=== PATIENT | male | born 1940 | race Caucasian/White ===

== ENCOUNTER 2019-02-07 14:30 | Emergency (ER) | payer OTHER, SELFPAY ==
[2019-02-07 14:34] VITALS: BP 186/87; PULSE 69; RESP 16; TEMP 36.8; O2SAT 100
--- NOTE | 2019-02-07 14:35 | DI.RAD.S_ITS ---
PROCEDURE: XR PELVIS 1-2V INDICATIONS: Left hip pain after fall TECHNIQUE: Single view(s) of the pelvis acquired. COMPARISON: None. FINDINGS: Bones: No fractures or dislocations. No suspicious bony lesions. Bilateral hip joint osteoarthritic changes are seen. Degenerative disc disease in lower lumbar spine is also noted. Soft tissues: Visualized bowel gas pattern is normal. No suspicious soft tissue calcifications. IMPRESSION: No gross acute pelvic fracture or dislocation. Bilateral hip joint osteoarthritis. Dictated by: Esau Izquierdo M.D. on 02/07/2019 at 15:01 Approved by: Esau Izquierdo M.D. on 02/07/2019 at 15:01
--- NOTE | 2019-02-07 14:40 | ED.FALL ---
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 Upon trying to get out of the dumpster he fell out. Potentially hitting his head. Unsure if he lost any consciousness. Did have pain with his left pelvis when he was stood up by the paramedics. Arrive not on a backboard not in a cervical collar and alert oriented x3. Related Data Home Medications Medication Instructions Recorded Confirmed aspirin 81 mg PO QPM #0 10/09/17 02/07/19 nitroglycerin [Nitrostat] 0.4 mg SUBLINGUAL PRN PRN #0 10/09/17 02/07/19 ResMed AirSense 10 CPAP #1 ea 01/27/19 02/07/19 [NALTREXONE] 4.5 mg PO BEDTIME 02/07/19 02/07/19 atorvastatin [Lipitor] 40 mg PO BEDTIME 02/07/19 02/07/19 chlorhexidine gluconate [Paroex 15 ml BUCCAL BID 02/07/19 02/07/19 Oral Rinse] clopidogrel 75 mg PO QPM 02/07/19 02/07/19 fluorouracil 1 applic TOPICAL BID 02/07/19 02/07/19 fluticasone propionate 1 spray INTRANASAL QDAY PRN 02/07/19 02/07/19 lisinopril 5 mg PO QPM 02/07/19 02/07/19 metoprolol succinate [Toprol XL] 25 mg PO QPM 02/07/19 02/07/19 Previous Rx's Medication Instructions Recorded acetaminophen-codeine 1 tab PO Q8H PRN #14 tab 02/07/19 [Tylenol-Codeine #3] Allergies Allergy/AdvReac Type Severity Reaction Status Date / Time No Known Allergies Allergy Uncoded 08/24/18 11:48 Review of Systems Constitutional Denies frequent falls and Denies headache(s) Eyes Denies diplopia ENT Ears, Nose, Mouth, and Throat: Denies vertigo, Denies dizziness, Denies headache(s) and Denies sore throat Cardiovascular Denies chest pain and Denies dyspnea Respiratory Denies dyspnea Gastrointestinal Gastrointestinal: Denies abdominal pain Musculoskeletal Comments: Left hip pain Integumentary/Breasts Denies rash Neurologic Denies vertigo, Denies dizziness, Denies frequent falls and Denies headache(s) Hematologic/Lymphatic Comments: On Plavix Exam Initial Vital Signs Initial Vital Signs: Vital Signs Temperature 98.3 F 02/07/19 14:34 Pulse Rate 69 02/07/19 14:34 Respiratory Rate 16 02/07/19 14:34 Blood Pressure 186/87 H 02/07/19 14:34 Pulse Oximetry 100 02/07/19 14:34 Const General: cooperative, well developed, well groomed and No acute distress Orientation: alert, awake and oriented x3 [facility] Head: normal to inspection, normocephalic, atraumatic and No abrasion Nose: external nose normal Mouth: oral mucosae normal Resp Effort & Inspection: normal respiratory effort Auscultation: clear to auscultation bilaterally Cardio Rate: regular rate Rhythm: regular rhythm GI Inspection: non-distended Palpation: soft Back/Spine/Pelvis Cervical Spine: No collar present, pain with cervical ROM, No cervical spinal tenderness and No step off deformity Thoracic/Lumbar Spine: thoracic and lumbar spine normal to inspection, No thoracic spinal tenderness and No lumbar spinal tenderness Skin Lesions: no lesions Rashes: no rashes Neuro General: alert, awake and oriented x3 Cognition: normal cognition Speech: speech normal Extrem Other: Tender to palpation left hemipelvis however is able to flex and extend the left hip. No left in the year left ankle problems. Right lower extremity unremarkable. Upper extremities bilateral unremarkable. Psych Appearance: grossly normal and well kempt Attitude: cooperative [facility] Medical History Ankle pain (Chronic) Factor V Leiden (Chronic) Foot pain (Chronic) Glaucoma (Chronic) Hearing deficit (Chronic) Hearing loss (Chronic) Hemorrhoid (Chronic) Hyperlipidemia (Chronic) Hypertension (Chronic ~1950) Peripheral neuropathy (Chronic ~2007) Seasonal allergies (Chronic) Shoulder pain (Chronic) Sleep apnea (Chronic) Vision disorder (Chronic) Chicken pox (Resolved) Fractures (Resolved) Herpes (Resolved) Measles (Resolved) Mumps (Resolved) Social History marital status: Smoking Status: Never smoker alcohol intake: current (1-2 A DAY ) substance use type: does not use Course Orders Ordered: ED Orders 02/07/19 14:35 XR pelvis 1-2V Stat 02/07/19 14:41 CT cervical spine wo con Stat CT head/brain wo con Stat Discontinued Medications Acetaminophen/Codeine Phosphate (Tylenol #3) 1 tab PO NOW ONE Stop: 02/07/19 15:24 Last Admin: 02/07/19 15:49 Dose: 1 tab Vital Signs - 8 hr 02/07/19 14:34 Temperature 98.3 F Pulse Rate 69 Respiratory Rate 16 Blood Pressure 186/87 H Pulse Oximetry 100 MDM - Fall Imaging Data Pelvis x-ray: Radiologist's impression: [address] [address] XRay Report Signed Patient: Guero Swanson JMR#: [id number] : 1940Acct:[id number] Age/Sex: 78 / MDate of Service: 02/07/19 Loc: ED Accession Number: [id number] Procedure: XR pelvis 1-2V Ordering Provider: Lazaro Starkey D.O. PROCEDURE: XR PELVIS 1-2V INDICATIONS: Left hip pain after fall TECHNIQUE: Single view(s) of the pelvis acquired. COMPARISON: None. FINDINGS: Bones: No fractures or dislocations. No suspicious bony lesions. Bilateral hip joint osteoarthritic changes are seen. Degenerative disc disease in lower lumbar spine is also noted. Soft tissues: Visualized bowel gas pattern is normal. No suspicious soft tissue calcifications. IMPRESSION: No gross acute pelvic fracture or dislocation. Bilateral hip joint osteoarthritis. Dictated by: Esau Izquierdo M.D. on 02/07/2019 at 15:01 Approved by: Esau Izquierdo M.D. on 02/07/2019 at 15:[address] C[address]: Radiologist's impression: [address] [address] [address] Scan Report Signed Patient: Guero Swanson NASIMAR#: [id number] : 1940Acct:[id number] Age/Sex: 78 / MDate of Service: 02/07/19 Loc: ED Accession Number: [id number] Procedure: CT cervical spine wo con Ordering Provider: Lazaro Starkey D.O. PROCEDURE: CT CERVICAL SPINE WO CON INDICATIONS: Fall with midline neck pain TECHNIQUE: Noncontrast 3 mm thick sections acquired from the skull base to the T4 level. Sagittal and coronal reformats were then constructed. For radiation dose reduction, the following was used: automated exposure control, adjustment of mA and/or kV according to patient size. COMPARISON: None. FINDINGS: Image quality: Excellent. Bones: There is straightening of normal cervical lordosis. No acute fracture or dislocation is seen. Vertebral body heights are well-preserved. Degenerative endplate changes and bilateral facet hypertrophic changes are noted throughout cervical spine. There is suggestion of obvious disc bulge at C4-5, C5-6 and C6-7 levels causing mild to moderate central canal stenosis and bilateral neuroforaminal narrowing more prominent at C5-6 level. Visualized superior ribs are intact. Soft tissues: Prevertebral soft tissues are normal in thickness. No paravertebral hematomas. No apical pneumothoraces. IMPRESSION: 1. No acute cervical spine fracture or spondylolisthesis. 2. Degenerative disc disease throughout cervical spine as above. Dictated by: Esau Izquierdo M.D. on 02/07/2019 at 15:03 Approved by: Esau Izquierdo M.D. on 02/07/2019 at 15:[address]: Radiologist's impression: [place] [address] CT Scan Report Signed Patient: Guero Swanson JMR#: [id number] : 1940Acct:[id number] Age/Sex: 78 / MDate of Service: 02/07/19 Loc: ED Accession Number: [id number] Procedure: CT head/brain wo con Ordering Provider: Lazaro Starkey D.O. PROCEDURE: CT HEAD/BRAIN WO CON INDICATIONS: Fell hit head on Plavix TECHNIQUE: Noncontrast 4.5 mm thick angled axial sections acquired from the foramen magnum to the vertex, with coronal and sagittal reformats. For radiation dose reduction, the following was used: automated exposure control, adjustment of mA and/or kV according to patient size. COMPARISON: [facility], CT, HEAD WITHOUT CONTRAST, 03/18/2016, 15:00. FINDINGS: Image quality: Excellent. CSF spaces: Basal cisterns are patent. No extra-axial fluid collections. The ventricles are symmetric in size and shape. Brain: No intracranial bleeds or masses. There is cerebral volume loss for age, with resultant ventricular and sulcal prominence. There are periventricular and deep white matter chronic small vessel ischemic changes. There is intracranial internal carotid artery atherosclerosis. Skull and face: Calvarium and visualized facial bones appear intact, without suspicious lesions. Sinuses: Visualized sinuses and mastoids are clear. IMPRESSION: No CT evidence of acute intracranial pathology. Age-appropriate atrophy and mild periventricular white matter microangiopathic changes. Dictated by: Esau Izquierdo M.D. on 02/07/2019 at 15:02 Approved by: Esau Izquierdo M.D. on 02/07/2019 at 15:03 [facility] Narrative Medical decision making narrative: Head CT and cervical spine CT unremarkable. Patient was able to stand however was having some difficulty walking. We were able to get him a walker. He did develop a large hematoma on his left lateral thigh. I suspect this is bruising. Does not appear to be a ruptured or torsed muscle or a traumatic bursitis. We did discuss what is expected to happen with regard to this and pain and swelling and redness and bruising afterwards. He did feel better after the Tylenol 3. Will send him home with this. I did inform him that this could potentially cause him to be drowsy so he needed to take care to avoid falling. He was given return precautions. He expressed understanding and agreement plan. Discharge Plan Departure Patient Disposition: Home Clinical Impression: Contusion of hip Qualifiers: Encounter type: initial encounter Laterality: left Qualified Code(s): S70.02XA - Contusion of left hip, initial encounter Fall Qualifiers: Encounter type: initial encounter Qualified Code(s): W19.XXXA - Unspecified fall, initial encounter Instructions: DI for Contusion Activity Restrictions/Additional Instructions: Use the walker as needed. Continue all of your medication. Expect to be more sore tomorrow. If you develop new pain in a different location return to the emergency department for evaluation. Contact your primary care doctor for follow-up. Prescriptions: New acetaminophen-codeine [Tylenol-Codeine #3] 300-30 mg tablet 1 tab PO Q8H PRN (Reason: pain) Qty: 14 RF: 0 No Action aspirin 81 MG tablet,delayed release (DR/EC) 81 mg PO QPM Qty: 0 RF: 0 nitroglycerin [Nitrostat] 0.4 MG tablet, sublingual 0.4 mg Sublingual PRN PRN (Reason: Chest Pain) Qty: 0 RF: 0 clopidogrel 75 mg Tablet 75 mg PO QPM RF: 0 atorvastatin [Lipitor] 40 mg tablet 40 mg PO BEDTIME RF: 0 fluorouracil 5 % Cream 1 applic TOPICAL BID RF: 0 chlorhexidine gluconate [Paroex Oral Rinse] 0.12 % Mouthwash 15 ml BUCCAL BID RF: 0 lisinopril 5 mg tablet 5 mg PO QPM RF: 0 metoprolol succinate [Toprol XL] 25 mg tablet extended release 24 hr 25 mg PO QPM RF: 0 fluticasone propionate 16 GM spray,suspension 1 spray Intranasal QDAY PRN (Reason: Allergy Symptoms) RF: 0 [NALTREXONE] 4.5 mg PO BEDTIME RF: 0 ResMed AirSense 10 CPAP Qty: 1 RF: 0 Referrals: Socrates Tee MD [Primary Care Provider] -
--- NOTE | 2019-02-07 14:55 | PC.NURSE ---
c-spine precautions maintained
--- NOTE | 2019-02-07 14:56 | PC.NURSE ---
c-spine precautions maintained
[2019-02-07] MEDS: CODEINE/ACETAMINOPHEN 30/300 TABLET 1 TAB PO (15:49)
[2019-02-07 16:00] VITALS: BP 178/77; PULSE 77; RESP 16; O2SAT 99
--- NOTE | 2019-02-07 16:18 | PC.NURSE ---
Patient has large area od soft tissue swelling to the back of right leg above knee/hamstring area. Also has large area od swelling to outer portion of left hip that is about the size of a softball. MD Starkey aware and assessed both. No discoloration noted at this time. Both areas are tender to the touch.
--- NOTE | 2019-02-07 16:20 | PC.NURSE ---
Patient up in hallway with walker with minimal pain.
== END 2019-02-07 16:31 | disposition home or self-care (01) ==
PROVIDERS: Emergency Provider Emergency Medicine; PCP Family Medicine
DX: S70.02XA Contusion of left hip, initial encounter (principal); M54.2 Cervicalgia; W19.XXXA Unspecified fall, initial encounter; Z79.01 Long term (current) use of anticoagulants
CPT/HCPCS: 70450; 72125; 72170; 99283; 99284

== ENCOUNTER → 2019-02-21 09:38 | Outpatient (CLI) | payer OTHER, SELFPAY ==
--- NOTE | 2019-02-21 09:44 | DI.CT.S_ITS ---
PROCEDURE: CT PEL WO CON INDICATIONS: left hip pain with fall r/o fracure of left hip TECHNIQUE: Noncontrast 3 mm axial sections acquired through the bony pelvis, with coronal and sagittal reformatting. COMPARISON: [facility], CR, XR PELVIS 1-2V, 02/07/2019, 14:40. FINDINGS: Image quality: Excellent. Bones: There is a minimally displaced left acetabular fracture with oblique orientation involving the acetabular roof and medial acetabular wall. This extends to the junction with the left superior pubic ramus. The bony pelvis otherwise appears intact. The visualized proximal femora also appear intact. The visualized lower lumbar spine demonstrates moderate degenerative disc disease at L5-S1 as well as moderate facet arthropathy in the lower lumbar spine. Soft tissues: No hematoma collections identified. No definite joint effusions. The visualized pelvic structures demonstrates mild aneurysmal dilatation of the visualized abdominal aorta measuring up to 3.1 cm. No intraperitoneal free fluid. Visualized bowel loops appear normal in caliber. IMPRESSION: 1. Minimally displaced left acetabular fracture. 2. 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 Dictated by: Stephen Page M.D. on 02/21/2019 at 10:51 Approved by: Stepehn Page M.D. on 02/21/2019 at 11:00
== END ==
PROVIDERS: PCP Family Medicine; Visit Provider Family Medicine
DX: S32.492A Other specified fracture of left acetabulum, initial encounter for closed fracture (principal); M25.552 Pain in left hip; I71.4 Abdominal aortic aneurysm, without rupture; M47.817 Spondylosis without myelopathy or radiculopathy, lumbosacral region; M51.37 Other intervertebral disc degeneration, lumbosacral region; W19.XXXA Unspecified fall, initial encounter
CPT/HCPCS: 72192

== ENCOUNTER → 2019-03-01 10:22 | Outpatient (CLI) | payer OTHER, SELFPAY ==
--- NOTE | 2019-03-01 10:23 | DI.US.S_ITS ---
PROCEDURE: US PERIPH VENOUS LOW EXTREM BI INDICATIONS: pain and swelling bilateral lower extremities TECHNIQUE: Real-time imaging, as well as color and pulse Doppler interrogation, were performed of the deep veins of both legs from the inguinal ligament to the popliteal fossa. COMPARISON: None. FINDINGS: Right: The common femoral, femoral and popliteal veins are normally compressible, and free of intraluminal thrombus. Color and pulse Doppler demonstrate normal phasic intravascular flow. There is normal augmentation response to distal compression maneuver. There is a popliteal (Jenkins's) cyst a right-side measuring 2.9 x 0.9 x 1.6 cm. Left: The common femoral, femoral and popliteal veins are normally compressible, and free of intraluminal thrombus. Color and pulse Doppler demonstrate normal phasic intravascular flow. There is normal augmentation response to distal compression maneuver. IMPRESSION: 1. No DVT in the lower extremities. 2. Right Jenkins's cyst. Dictated by: Ray Saunders M.D. on 03/01/2019 at 12:39 Approved by: Ray Saunders M.D. on 03/01/2019 at 12:40
== END ==
PROVIDERS: PCP Family Medicine; Visit Provider Family Medicine
DX: M79.604 Pain in right leg (principal); M79.605 Pain in left leg; M79.89 Other specified soft tissue disorders; M71.21 Synovial cyst of popliteal space [Baker], right knee
CPT/HCPCS: 93970

== ENCOUNTER → 2019-04-26 11:26 | Outpatient (CLI) | payer OTHER, SELFPAY ==
[2019-04-26 12:24] LABS: Add Manual Diff / Slide Review NO; Basophils Absolute Auto 100 /uL (0-100); Basophils Percent Auto 1.1 % (0-2); Eosinophils Absolute Auto 400 /uL (0-450); Eosinophils Percent Auto 8.9 % (2-4); Hematocrit 39.8 % (41-53); Hemoglobin 13.8 g/dL (13.5-17.5); Lymphocytes Absolute Auto 1200 /uL (1100-4500); Lymphocytes Percent Auto 26.2 % (25-40); Mean Corpuscular HGB Conc 34.6 % (30-36); Mean Corpuscular Hemoglobin 32.9 PG (26-34); Mean Corpuscular Volume 95.3 fL (80-100); Monocytes Absolute Auto 500 /uL (0-900); Monocytes Percent Auto 10.3 % (3-14); Neutrophils Absolute Auto 2500 /uL (1500-7000); Neutrophils Percent Auto 53.5 % (50-75); Platelet Count 201 X10^3/uL (150-400); Red Blood Cell Count 4.18 X10^6/uL (4.5-5.9); Red Cell Distribution Width 12.6 % (11.6-14.8); White Blood Cell Count 4.7 X10^3/uL (4.5-11.0)
[2019-04-26 12:48] LABS: Alanine Aminotransferase 26 IU/L (21-72); Albumin 4.6 g/dL (3.5-5.0); Albumin Globulin Ratio 1.6 (1.0-2.8); Alkaline Phosphatase 91 U/L (38-126); Aspartate Aminotransferase 27 IU/L (17-59); BUN Creatinine Ratio 16.4 (6-22); Bilirubin Total 1.2 mg/dL (0.2-1.3); Blood Urea Nitrogen 18 mg/dL (9-20); Calcium 9.9 mg/dL (8.4-10.2); Carbon Dioxide 28 mmol/L (22-32); Chloride 107 mmol/L (98-107); Cholesterol 108 mg/dL (140-199); Estimated Glomerular Filt Rate > 60.0 mL/min (>60); Globulin 2.9 g/dL (1.7-4.1); Glucose 109 mg/dL (80-110); HDL Cholesterol 26 mg/dL (40-60); HEMOLYSIS < 15 (0-50); LDL Cholesterol Calculated 56 mg/dL (<100); Potassium 4.4 mmol/L (3.4-5.1); Sodium 143 mmol/L (137-145); Total Protein 7.5 g/dL (6.3-8.2); Triglycerides 132 mg/dL (35-150)
[2019-04-26 13:13] LABS: TSH w/ Reflex to FT4 1.25 uIU/mL (0.47-4.68)
[2019-04-26 13:30] LABS: Vitamin B12 419 pg/mL (239-931)
== END ==
PROVIDERS: PCP Family Medicine; Visit Provider Family Medicine
DX: E78.5 Hyperlipidemia, unspecified (principal); I10 Essential (primary) hypertension; I25.10 Atherosclerotic heart disease of native coronary artery without angina pectoris
CPT/HCPCS: 36415; 80053; 80061; 82607; 84443; 85025

== ENCOUNTER 2020-02-27 17:39 | Observation (INO) | payer OTHER, SELFPAY ==
[2020-02-27] VITALS (13 sets, daily range): BP systolic 117–205; BP diastolic 57–95; PULSE 63–80; RESP 16–37; TEMP 36.8–37.1; O2SAT 97–99; BMI 25.7
--- NOTE | 2020-02-27 17:47 | DI.CT.S_ITS ---
PROCEDURE: CT HEAD/BRAIN WO CON INDICATIONS: trauma, on Plavix TECHNIQUE: Noncontrast 4.5 mm thick angled axial sections acquired from the foramen magnum to the vertex, with coronal and sagittal reformats. For radiation dose reduction, the following was used: automated exposure control, adjustment of mA and/or kV according to patient size. COMPARISON: [facility], MR, STROKE PROTOCOL, 04/08/2016, 13:48. [facility], CT, CT HEAD/BRAIN WO CON, 02/07/2019, 14:44. [facility], CT, HEAD WITHOUT CONTRAST, 03/18/2016, 15:00. FINDINGS: Image quality: Excellent. CSF spaces: Basal cisterns are patent. No extra-axial fluid collections. The ventricles are symmetric in size and shape. Brain: No intracranial bleeds or masses. There is cerebral volume loss for age, with resultant ventricular and sulcal prominence. There are periventricular and deep white matter chronic small vessel ischemic changes. There is intracranial internal carotid artery atherosclerosis. Skull and face: Calvarium and visualized facial bones appear intact, without suspicious lesions. Sinuses: Visualized sinuses and mastoids are clear. IMPRESSION: No acute intracranial hemorrhage is seen. No acute intracranial process is seen. Note is made of age-appropriate brain parenchymal volume loss and chronic small vessel ischemic changes. Dictated by: Eric Willams M.D. on 02/27/2020 at 17:00 Approved by: Eric Willams M.D. on 02/27/2020 at 17:01
--- NOTE | 2020-02-27 17:47 | DI.CT.S_ITS ---
PROCEDURE: CT CERVICAL SPINE WO CON INDICATIONS: trauma, bilateral hand paresthesia TECHNIQUE: Noncontrast 3 mm thick sections acquired from the skull base to the T4 level. Sagittal and coronal reformats were then constructed. For radiation dose reduction, the following was used: automated exposure control, adjustment of mA and/or kV according to patient size. COMPARISON: None. FINDINGS: Image quality: Excellent. Bones: No fractures or dislocations. Visualized superior ribs are intact. Prominent cervical spine degenerative changes are seen, which are most prominent inferiorly, with moderate disc space narrowing at C4-C5 and moderate to severe disc space narrowing at C5-C6 and C6-C7. Bridging anterior osteophytes are seen, which extends from at least C2-T3. Partially projected endplate osteophytes are seen which are most prominent at C4-C5, C5-C6, and C6-C7. Soft tissues: Prevertebral soft tissues are normal in thickness. No paravertebral hematomas. No apical pneumothoraces. Left neck clips are seen, as on series 3 image 49. Atherosclerotic calcification is noted. There is a left distal common carotid artery and proximal internal carotid artery stent seen. IMPRESSION: No acute fractures are seen. Prominent cervical spine degenerative changes are seen, which are worst inferiorly. Left carotid artery stenting. Left neck clips are seen. Dictated by: Eric Willams M.D. on 02/27/2020 at 17:03 Approved by: Eric Willams M.D. on 02/27/2020 at 17:06
--- NOTE | 2020-02-27 17:48 | ED_ITS ---
HPI - General Adult <Anna Fontenot MD - Last Filed: 02/28/20 07:45> General Chief complaint: Trauma Stated complaint: Fell hit head/ Neck px Time Seen by Provider: 02/27/20 17:45 History of Present Illness HPI narrative: 79-year-old gentleman with cardiac disease, hyperlipidemia, hypertension currently on Plavix who was out the [place] today cutting wood. He stumbled and fell backwards with a chainsaw in his hand. The chainsaw automatically stopped and he hit his head. No significant lacerations no loss of consciousness but some midline tenderness at C4-5 6 with bilateral hand paresthesias. Still able to move hands and legs. No lower extremity neurologic complaints. He is not complaining of shortness of breath, chest pain abdominal pain or pelvic pain. He states he was in his usual good health prior to stumbling backwards and suffering mechanical fall. Related Data Home Medications Medication Instructions Recorded Confirmed aspirin 81 mg PO QPM #0 10/09/17 02/28/20 nitroglycerin [Nitrostat] 0.4 mg SUBLINGUAL PRN PRN #0 10/09/17 02/28/20 ResMed AirSense 10 CPAP #1 ea 01/27/19 09/07/19 fluticasone propionate 1 spray INTRANASAL QDAY PRN 02/07/19 09/07/19 metoprolol succinate [Toprol XL] 25 mg PO QPM 02/07/19 02/28/20 melatonin 10 mg capsule 10 mg PO BEDTIME PRN 02/15/19 02/28/20 Previous Rx's Medication Instructions Recorded DISABLED [place] #1 each 02/15/19 clopidogrel 75 mg tablet 75 mg PO QPM #90 tab 10/20/19 atorvastatin 40 mg tablet 40 mg PO BEDTIME #90 tab 12/05/19 Cmp Naltrexone 4.5 mg PO DAILY #90 caplet 01/12/20 lisinopril 5 mg tablet 5 mg PO QPM #90 tab 01/26/20 Allergies Allergy/AdvReac Type Severity Reaction Status Date / Time No Known Allergies Allergy Uncoded 09/21/19 12:00 Review of Systems <Anna Fontenot MD - Last Filed: 02/28/20 07:45> Review of Systems Narrative: Pertinent positive and negative findings as per HPI Remainder of review of systems is otherwise unremarkable for Constitutional: Fevers, chills, weakness ENT: No sore throat, neck pain, ear pain CV: Chest pain, palpitations, dyspnea on exertion Respiratory: Cough, wheeze, dyspnea GI: Nausea, vomiting, diarrhea, change in bowel habits, black or bloody stools : Dysuria, hematuria, flank pain MS: Muscle weakness, numbness, joint swelling or warmth Skin: Rashes, nonhealing lesions Neuro: Syncope, dizziness, tingling Psych: Depression, anxiety, suicidal ideation Endocrine: Fatigue, heat or cold intolerance, very dry skin Heme: Easy bruising or bleeding Allergy: Seasonal rhinorrhea, itchy eyes Patient History <Anna Fontenot MD - Last Filed: 02/28/20 07:45> Medical History Allergies (Acute) Ankle pain (Chronic) Chicken pox (Resolved) Factor V Leiden (Chronic) Foot pain (Chronic) Fractures (Resolved) Glaucoma (Chronic) Hearing deficit (Chronic) Hearing loss (Chronic) Hemorrhoid (Chronic) Herpes (Resolved) Hyperlipidemia (Chronic) Hypertension (Chronic ~1949) Measles (Resolved) Mumps (Resolved) Peripheral neuropathy (Chronic ~2007) Seasonal allergies (Chronic) Shoulder pain (Chronic) Sleep apnea (Chronic) Vision disorder (Chronic) Surgical History Anesthesia (Resolved) History of eye surgery (Resolved ~2007) History of tonsillectomy (~1962) Status post appendectomy (~1994) Status post knee surgery (~1967) Family History Father Factor V Leiden deficiency Cancer Grandfather Hypertension Stroke Grandmother Heart attack Diabetes mellitus Mother Diabetes mellitus Hypertension High cholesterol Grandmother Diabetes mellitus Grandfather No problems noted. Social History marital status: household members: spouse Smoking Status: Never smoker alcohol intake: current substance use type: does not use Smoking Status: Never smoker alcohol intake frequency: 0-2 drinks per day Substance Use Type: does not use Exam <Anna Fontenot MD - Last Filed: 02/28/20 07:45> Narrative Exam Narrative: General: Alert and able to give a completely coherent history HEENT: Head is atraumatic, no contusions. Pupils are equal and reactive. Tympanic membranes are normal bilaterally without hemotympanum Neck: In hard cervical collar. Tenderness midline C5-6 7 Chest: No tenderness with palpation, no contusions or abrasion. No thoracic spine tenderness to palpation Respiratory: Lungs are clear bilaterally without rhonchi rales or wheezes Cardiac: Regular rate and rhythm, no murmurs Abdomen: Soft nontender. No contusions or hematomas. No flank pain Spine and pelvis: No bony point tenderness along the lumbar spine or with pelvic manipulation Skin: Warm dry well perfused Neurologic: Complaining of bilateral paresthesias of both hands and fingers. Full sensation bilaterally full strength at wrists and bolt labeler bilaterally. Neurovascularly intact. Extremities: Paresthesias upper extremities is noted above. No similar findings to lower extremities. Lower extremities without trauma neurovascularly intact Psych: Appropriate insight, fluent speech, appropriate for exam Initial Vital Signs Initial Vital Signs: Vital Signs Pulse Rate 77 02/27/20 17:40 Respiratory Rate 16 02/27/20 17:40 <Gerry Price DO - Last Filed: 02/28/20 05:39> Initial Vital Signs Initial Vital Signs: Vital Signs Pulse Rate 77 02/27/20 17:40 Respiratory Rate 16 02/27/20 17:40 Course <Anna Fontenot MD - Last Filed: 02/28/20 07:45> Orders Ordered: Acetaminophen (Tylenol) 650 mg PO Q6HR PRN PRN Reason: Fever/Mild Pain (1-3) Al Hydrox/Mg Hydrox/Simethicone (Maalox Plus) 30 ml PO Q6HR PRN PRN Reason: Dyspepsia Bisacodyl (Dulcolax) 10 mg NC DAILY PRN PRN Reason: Constipation Calcium Carbonate (Tums) 1,000 mg PO Q4HR PRN PRN Reason: Dyspepsia Docusate Sodium (Colace) 100 mg PO BID PRN PRN Reason: Constipation Heparin Sodium (Porcine) (Heparin) 5,000 unit SUBCUT BID ANDREW Hydromorphone HCl (Dilaudid) 0.5 mg IV Q30MIN PRN PRN Reason: Pain, Severe (7-10) Last Admin: 02/28/20 04:48 Dose: 0.5 mg Documented by: Admin: 02/28/20 01:36 Dose: 0.5 mg Documented by: Admin: 02/27/20 19:35 Dose: 0.5 mg Documented by: AVA Naloxone HCl (Narcan) 0.2 mg IV Q2MIN PRN PRN Reason: Opiate Reversal Ondansetron HCl (Zofran) 4 mg IV Q8HR PRN PRN Reason: Nausea And Vomiting Oxycodone HCl (Percolone) 5 mg PO Q4HR PRN PRN Reason: Pain, Moderate (4-6) Last Admin: 02/28/20 02:41 Dose: 5 mg Documented by: PATRICIA Oxycodone HCl (Percolone) 10 mg PO Q4HR PRN PRN Reason: Pain, Severe (7-10) Discontinued Medications Oxycodone HCl (Percolone) 5 mg PO Q6HR PRN PRN Reason: Pain, Moderate (4-6) Oxycodone HCl (Oxycodone) 10 mg PO Q4HR PRN PRN Reason: Pain, Moderate (4-6) Vital Signs Vital signs: Vital Signs - 8 hr 02/27/20 21:30 02/27/20 22:00 02/27/20 22:30 Pulse Rate 79 80 76 Respiratory Rate 21 21 20 Blood Pressure [Right Arm] 178/81 H 197/90 H 184/87 H Pulse Oximetry 99 98 98 <Gerry Price, DO - Last Filed: 02/28/20 05:39> Course Course Narrative: patient received in sign out from Dr. Fontenot. I've performed an independent history and physical. Images and labs reviewed. Patient GCS 15, no midline neck pain but he does continue to have numbness and tingling of B/L UE, L greater than R. Attempt to get MRI, however not available tonight. Images pushed to [facility], but he is a [facility] patient and calls placed to their [facility] physician who relays images to their Neurosurgeons. Images reviewed and no significant abnormality. Suggestion to keep overnight, with ASPEN collar if possible and obtain MRI tomorrow. [facility] Neurosurgery would like to rev iew images when obtained and can be reached at [phone] Orders Ordered: Acetaminophen (Tylenol) 650 mg PO Q6HR PRN PRN Reason: Fever/Mild Pain (1-3) Al Hydrox/Mg Hydrox/Simethicone (Maalox Plus) 30 ml PO Q6HR PRN PRN Reason: Dyspepsia Bisacodyl (Dulcolax) 10 mg NC DAILY PRN PRN Reason: Constipation Calcium Carbonate (Tums) 1,000 mg PO Q4HR PRN PRN Reason: Dyspepsia Docusate Sodium (Colace) 100 mg PO BID PRN PRN Reason: Constipation Heparin Sodium (Porcine) (Heparin) 5,000 unit SUBCUT BID ANDREW Hydromorphone HCl (Dilaudid) 0.5 mg IV Q30MIN PRN PRN Reason: Pain, Severe (7-10) Last Admin: 02/28/20 04:48 Dose: 0.5 mg Documented by: Admin: 02/28/20 01:36 Dose: 0.5 mg Documented by: Admin: 02/27/20 19:35 Dose: 0.5 mg Documented by: AVA Naloxone HCl (Narcan) 0.2 mg IV Q2MIN PRN PRN Reason: Opiate Reversal Ondansetron HCl (Zofran) 4 mg IV Q8HR PRN PRN Reason: Nausea And Vomiting Oxycodone HCl (Percolone) 5 mg PO Q4HR PRN PRN Reason: Pain, Moderate (4-6) Last Admin: 02/28/20 02:41 Dose: 5 mg Documented by: PATRICIA Oxycodone HCl (Percolone) 10 mg PO Q4HR PRN PRN Reason: Pain, Severe (7-10) Discontinued Medications Oxycodone HCl (Percolone) 5 mg PO Q6HR PRN PRN Reason: Pain, Moderate (4-6) Oxycodone HCl (Oxycodone) 10 mg PO Q4HR PRN PRN Reason: Pain, Moderate (4-6) Reevaluation(s) Reevaluation #1: patient becomes a bit confused, difficulty remembering the events, also states he feels like it may be hard for him to swallow. This is likely a consequence of getting dilaudid, but given injury and use of Plavix re peat images were ordered. Consultations Consultation #1: Hospitalist happy to accept. rn call center gen surgery notified given admission of trauma patient. Vital Signs Vital signs: Vital Signs - 8 hr 02/27/20 21:30 02/27/20 22:00 02/27/20 22:30 Pulse Rate 79 80 76 Respiratory Rate 21 21 20 Blood Pressure [Right Arm] 178/81 H 197/90 H 184/87 H Pulse Oximetry 99 98 98 Medical Decision Making <Anna Fontenot MD - Last Filed: 02/28/20 07:45> Medical Records Medical records reviewed: Yes I reviewed the patient's medical records. Lab Data Result diagrams: 02/27/20 20:40 02/28/20 05:10 Labs: Lab Results 02/27/20 02/27/20 02/27/20 Range/Units 20:40 20:40 20:40 WBC 10.3 (4.5-11.0) X10^3/uL RBC 3.97 L (4.5-5.9) X10^6/uL Hgb 13.3 L (13.5-17.5) g/dL Hct 38.1 L (41-53) % MCV 96.0 (80-100) fL MCH 33.6 (26-34) PG MCHC 35.0 (30-36) % RDW 12.7 (11.6-14.8) % Plt Count 202 (150-400) X10^3/uL Neut % (Auto) 77.1 H (50-75) % Lymph % (Auto) 13.2 L (25-40) % [place] % (Auto) 8.5 (3-14) % Eos % (Auto) 0.4 L (2-4) % Baso % (Auto) 0.8 (0-2) % Neut # (Auto) 7900 H (1123-2356) /uL Lymph # (Auto) 1400 (7894-7166) /uL [place] # (Auto) 900 (0-900) /uL Eos # (Auto) 0 (0-450) /uL Baso # (Auto) 100 (0-100) /uL Sodium 139 (137-145) mmol/L Potassium 4.6 (3.4-5.1) mmol/L Chloride 106 (98-107) mmol/L Carbon Dioxide 24 (22-32) mmol/L BUN 21 H (9-20) mg/dL Creatinine 1.12 (0.66-1.25) mg/dL Estimated GFR > 60.0 (>60) mL/min BUN/Creatinine Ratio 18.8 (6-22) Glucose 136 H (80-110) mg/dL Calcium 9.9 (8.4-10.2) mg/dL Total Bilirubin 1.1 (0.2-1.3) mg/dL AST 32 (17-59) IU/L ALT 24 (<50) IU/L Alkaline Phosphatase 76 (38-126) U/L Total Protein 7.5 (6.3-8.2) g/dL Albumin 4.5 (3.5-5.0) g/dL Globulin 3.0 (1.7-4.1) g/dL Albumin/Globulin Ratio 1.5 (1.0-2.8) Lipase 81 (23-300) U/L Ethyl Alcohol < 10 ( - 10) mg/dL Blood Type O Positive Antibody Screen Negative ECG Data Attestation: I personally reviewed and interpreted this ECG as follows: Interpretation: Sinus rhythm at a rate of 78 Normal intervals, normal axis Criteria for LVH minute No acute ischemia <Gerry Price DO - Last Filed: 02/28/20 05:39> Lab Data Labs: Lab Results 02/27/20 02/27/20 02/27/20 Range/Units 20:40 20:40 20:40 WBC 10.3 (4.5-11.0) X10^3/uL RBC 3.97 L (4.5-5.9) X10^6/uL Hgb 13.3 L (13.5-17.5) g/dL Hct 38.1 L (41-53) % MCV 96.0 (80-100) fL MCH 33.6 (26-34) PG MCHC 35.0 (30-36) % RDW 12.7 (11.6-14.8) % Plt Count 202 (150-400) X10^3/uL Neut % (Auto) 77.1 H (50-75) % Lymph % (Auto) 13.2 L (25-40) % [place] % (Auto) 8.5 (3-14) % Eos % (Auto) 0.4 L (2-4) % Baso % (Auto) 0.8 (0-2) % Neut # (Auto) 7900 H (0118-5389) /uL Lymph # (Auto) 1400 (4788-1021) /uL [place] # (Auto) 900 (0-900) /uL Eos # (Auto) 0 (0-450) /uL Baso # (Auto) 100 (0-100) /uL Sodium 139 (137-145) mmol/L Potassium 4.6 (3.4-5.1) mmol/L Chloride 106 (98-107) mmol/L Carbon Dioxide 24 (22-32) mmol/L BUN 21 H (9-20) mg/dL Creatinine 1.12 (0.66-1.25) mg/dL Estimated GFR > 60.0 (>60) mL/min BUN/Creatinine Ratio 18.8 (6-22) Glucose 136 H (80-110) mg/dL Calcium 9.9 (8.4-10.2) mg/dL Total Bilirubin 1.1 (0.2-1.3) mg/dL AST 32 (17-59) IU/L ALT 24 (<50) IU/L Alkaline Phosphatase 76 (38-126) U/L Total Protein 7.5 (6.3-8.2) g/dL Albumin 4.5 (3.5-5.0) g/dL Globulin 3.0 (1.7-4.1) g/dL Albumin/Globulin Ratio 1.5 (1.0-2.8) Lipase 81 (23-300) U/L Ethyl Alcohol < 10 ( - 10) mg/dL Blood Type O Positive Antibody Screen Negative Discharge Plan Departure Patient Disposition: Admitted as Observation Clinical Impression: Spinal injury Discharge Date/Time: 02/27/20 23:45 Referrals: Socrates Tee MD [Primary Care Provider] - Admit Date/Time: 02/27/20 22:42 Admit Provider: Aleksandr Fowler
--- NOTE | 2020-02-27 18:20 | DI.RAD.S_ITS ---
PROCEDURE: XR SHOULDER LT MIN 2V INDICATIONS: pain after fall TECHNIQUE: 3 views of the shoulder were acquired. COMPARISON: None. FINDINGS: Bones: No fractures or dislocations. No suspicious bony lesions. Visualized ribs appear intact. Degenerative changes of the left glenohumeral and acromioclavicular joints. Soft tissues: No suspicious soft tissue calcifications. Surgical clips in the left lower neck. IMPRESSION: Left shoulder without acute fracture or malalignment. 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 Dictated by: Winston Chand M.D. on 02/27/2020 at 18:53 Approved by: Winston Chand M.D. on 02/27/2020 at 18:54
--- NOTE | 2020-02-27 18:20 | DI.RAD.S_ITS ---
PROCEDURE: XR ELBOW LT MIN 3V INDICATIONS: pain after fall, swelling TECHNIQUE: 3 views of the elbow were acquired. COMPARISON: [facility], CR, XR SHOULDER LT MIN 2V, 02/27/2020, 18:27. FINDINGS: Bones: No fractures or dislocations. Small posterior olecranon spur. There is a small 8mm oval lucency noted within the distal left humeral diaphysis. This appears to be cortical to subcortical location. No associated periosteal reaction. No overlying osseous erosions or soft tissue densities. Soft tissues: No elbow joint effusion. No suspicious soft tissue calcifications. IMPRESSION: 1. Left elbow without acute fracture or dislocation. 2. An 8mm oval lytic lesion within the distal left humerus. Considerations include both benign and malignant etiologies. Recommend dedicated outpatient imaging of the left humerus with advanced imaging. Dictated by: Winston Chand M.D. on 02/27/2020 at 18:48 Approved by: Winston Chand M.D. on 02/27/2020 at 18:53
--- NOTE | 2020-02-27 18:56 | DI.MRI.S_ITS ---
PROCEDURE: MR CERVICAL SPINE WO/W CON INDICATIONS: fall, neck injury, bilateral upper extremity numbness TECHNIQUE: Noncontrast sagittal T1 spin echo and T2 fast spin echo, sagittal STIR, foraminal oblique sagittal T2 fast spin echo, axial gradient echo or T2 fast spin echo through the cervical spine. After the administration of contrast, axial and sagittal T1 spin echo with fat saturation through the cervical spine. COMPARISON: [facility], CT, CT CERVICAL SPINE WO CON, 02/27/2020, 17:44. [facility], CT, CT SOFT TISSUE NECK W CON, 02/27/2020, 21:01. FINDINGS: Image quality: Excellent. Alignment and curvature: There is straightening of the normal cervical lordosis. No focal AP alignment abnormality is seen. Marrow: Marrow is normal in overall signal, without suspicious enhancement. Spinal cord: Visualized spinal cord has normal size and signal. No cerebellar tonsillar herniation. No abnormal intramedullary enhancement. Paraspinous soft tissues: No paravertebral masses or suspicious enhancement. C2-3: The disc height is well-preserved. Loss of disc signal is seen at this level. Mild to moderate disc osteophyte complex is seen, which is eccentric to the left. There is prominent right-sided and moderate left-sided facet hypertrophy seen. There is moderate bilateral neural foraminal narrowing seen. Moderate central canal narrowing is seen. C3-4: The disc height is well-preserved. Loss of disc signal is seen at this level. Moderate disc osteophyte complex is seen, which is eccentric to the right. There is at least moderate right-sided and mild to moderate left-sided facet hypertrophy seen. There is moderate to severe right-sided and at least moderate left-sided neural foraminal narrowing seen. Moderate to severe central canal narrowing is seen. There is associated mass effect upon the ventral spinal cord. C4-5: Moderate loss of disc height is seen. Loss of disc signal is seen. Moderate to prominent disc osteophyte complex is seen, with a central disc osteophyte protrusion present. Bridging endplate osteophytes are seen anteriorly. Uncovertebral joint hypertrophy is seen at this level. There is moderate to severe right-sided and moderate left-sided facet hypertrophy seen. Moderate to severe bilateral neural foraminal narrowing is seen. There is moderate to severe central canal narrowing seen, with associated ventral cord flattening. C5-6: Moderate loss of disc height is seen. Loss of disc signal is seen. Moderate to prominent disc osteophyte complex is seen. Uncovertebral joint hypertrophy is seen at this level. Reactive marrow endplate changes are seen which are hypointense on T1-weighted imaging and hyperintense on T2 weighted imaging, which is most consistent with edema (Modic type I changes). Moderate facet joint hypertrophy is seen. There is moderate to severe bilateral neural foraminal narrowing seen. Moderate to severe central canal narrowing is seen, with associated mass effect upon the ventral spinal cord. C6-7: Mild to moderate loss of disc height and disc signal can be seen. Moderate generalized disc osteophyte complex is seen. Mild facet joint hypertrophy is seen. At least moderate bilateral neural foraminal narrowing is seen. Mild central canal narrowing is seen. Minimal associated ventral cord flattening can be seen. C7-T1: The disc height is well-preserved. Loss of disc signal is seen at this level. Bridging endplate osteophytes are seen anteriorly. A mild degree of generalized disc osteophyte complex is seen. No significant neural foraminal or central canal narrowing can be seen. IMPRESSION: No definite acute abnormality can be seen. No findings of bone contusion or ligamentous injury can be seen. No abnormal cord signal is seen. Multiple levels of cervical spine degenerative change are seen, which are most prominent inferiorly. Dictated by: Eric Willams M.D. on 02/28/2020 at 11:35 Approved by: Eric Willams M.D. on 02/28/2020 at 11:47
[2020-02-27] MEDS: HYDROMORPHONE 0.5 MG INJ IV (19:35)
[2020-02-27 20:53] LABS: Add Manual Diff / Slide Review NO; Basophils Absolute Auto 100 /uL (0-100); Basophils Percent Auto 0.8 % (0-2); Eosinophils Absolute Auto 0 /uL (0-450); Eosinophils Percent Auto 0.4 % (2-4); Hematocrit 38.1 % (41-53); Hemoglobin 13.3 g/dL (13.5-17.5); Lymphocytes Absolute Auto 1400 /uL (1100-4500); Lymphocytes Percent Auto 13.2 % (25-40); Mean Corpuscular Hemoglobin 33.6 PG (26-34); Monocytes Absolute Auto 900 /uL (0-900); Monocytes Percent Auto 8.5 % (3-14); Neutrophils Absolute Auto 7900 /uL (1500-7000); Neutrophils Percent Auto 77.1 % (50-75); Platelet Count 202 X10^3/uL (150-400); Red Blood Cell Count 3.97 X10^6/uL (4.5-5.9); Red Cell Distribution Width 12.7 % (11.6-14.8); White Blood Cell Count 10.3 X10^3/uL (4.5-11.0)
--- NOTE | 2020-02-27 20:57 | DI.CT.S_ITS ---
PROCEDURE: CT SOFT TISSUE NECK W CON INDICATIONS: fall, neck injury, now difficulty swallowing, on Plavix TECHNIQUE: After the administration of intravenous contrast, 3.0 mm axial sections acquired from the sella to the aortic arch. Additional oblique axial 3.0 mm sections acquired through the pharynx. 3 mm thick coronal and sagittal reformats were generated. For radiation dose reduction, the following was used: automated exposure control. COMPARISON: [facility], CT, CT CERVICAL SPINE WO CON, 02/07/2019, 14:44. [facility], CT, CT CERVICAL SPINE WO CON, 02/27/2020, 17:44. FINDINGS: Image quality: Excellent. Lymph nodes: No enlarged lymph nodes seen throughout the neck. Vessels: There are scattered atherosclerotic calcifications in the visualized extracranial carotid vasculature. Status post stenting of the left distal common carotid artery and proximal left internal carotid artery. There is opacification within the stented segment as well as distally. There are also moderate atherosclerotic calcifications at the right carotid bifurcation. Overall, visualized vascular structures appear patent. Scattered atherosclerotic calcifications of the coronary arteries are also noted. Neck spaces: The oropharynx, nasopharynx, and pharynx demonstrate no mucosal lesions. The vocal cords, false vocal cords, pyriform sinuses, epiglottis, vallecula, and tongue base all appear normal. Extramucosal spaces appear unremarkable. Glands: The parotid and submandibular glands appear normal. Thyroid gland is stable in appearance. Miscellaneous: Visualized brain and orbits appear normal. Lung apices appear clear. No apical pneumothoraces. Superficial soft tissues appear normal. Bones: No suspicious bony lesions. Stable alignment. Stable appearance of moderate multilevel cervical spondylitic changes. Visualized sinuses and mastoids appear unremarkable. IMPRESSION: 1. CT cervical spine without acute fracture or malalignment. Multilevel cervical spondylosis is unchanged. No acute changes since CT cervical spine obtained earlier same day. 2. No abnormal enhancing soft tissue lesions. 3. Visualized vasculature demonstrate contrast opacification throughout. 4. Status post stenting of the left carotid artery with contrast opacification within the stented segment. Dictated by: Winston Chand M.D. on 02/27/2020 at 21:49 Approved by: Winston Chand M.D. on 02/27/2020 at 22:01
--- NOTE | 2020-02-27 20:57 | DI.CT.S_ITS ---
PROCEDURE: CT HEAD/BRAIN WO CON INDICATIONS: mental status change, fall head injury on Plavix, delayed head imaging TECHNIQUE: Noncontrast 4.5 mm thick angled axial sections acquired from the foramen magnum to the vertex, with coronal and sagittal reformats. For radiation dose reduction, the following was used: automated exposure control, adjustment of mA and/or kV according to patient size. COMPARISON: [facility], CT, CT HEAD/BRAIN WO CON, 02/27/2020, 17:44. [facility], CT, CT HEAD/BRAIN WO CON, 02/07/2019, 14:44. FINDINGS: Image quality: Excellent. CSF spaces: Basal cisterns are patent. No extra-axial fluid collections. The ventricles are symmetric in size and shape. Brain: No intracranial bleeds or masses. There is cerebral volume loss for age, with resultant ventricular and sulcal prominence. There are periventricular and deep white matter chronic small vessel ischemic changes. There is intracranial internal carotid artery atherosclerosis. Skull and face: Calvarium and visualized facial bones appear intact, without suspicious lesions. Sinuses: Visualized sinuses and mastoids are clear. IMPRESSION: 1. CT head without acute intracranial abnormalities or acute calvarial fractures. 2. Age-related senescent changes and sequela of chronic small vessel ischemic disease. Dictated by: Winston Chand M.D. on 02/27/2020 at 21:43 Approved by: Winston Chand M.D. on 02/27/2020 at 21:46
[2020-02-27 21:05] LABS: Alanine Aminotransferase 24 IU/L (<50); Albumin 4.5 g/dL (3.5-5.0); Albumin Globulin Ratio 1.5 (1.0-2.8); Alkaline Phosphatase 76 U/L (38-126); Aspartate Aminotransferase 32 IU/L (17-59); BUN Creatinine Ratio 18.8 (6-22); Bilirubin Total 1.1 mg/dL (0.2-1.3); Blood Urea Nitrogen 21 mg/dL (9-20); Calcium 9.9 mg/dL (8.4-10.2); Carbon Dioxide 24 mmol/L (22-32); Chloride 106 mmol/L (98-107); Estimated Glomerular Filt Rate > 60.0 mL/min (>60); Ethanol (ETOH) < 10 mg/dL; Glucose 136 mg/dL (80-110); HEMOLYSIS < 15 (0-50); Lipase 81 U/L (23-300); Potassium 4.6 mmol/L (3.4-5.1); Sodium 139 mmol/L (137-145); Total Protein 7.5 g/dL (6.3-8.2)
[2020-02-28] VITALS (7 sets, daily range): BP systolic 152–170; BP diastolic 79–96; PULSE 67–97; RESP 16–18; TEMP 36.7–37.1; O2SAT 96–98; BMI 25.7
[2020-02-28] MEDS: HYDROMORPHONE 0.5 MG INJ IV ×2 (01:36→04:48)
--- NOTE | 2020-02-28 01:41 | P.HP_ITS ---
History of Present Illness History of Present Illness Date Patient Seen: 02/28/20 Time Patient Seen: 01:09 Chief complaint: Fell hit head/ Neck px Narrative: Mr. Guero Swanson is a 79-year-old male with a history significant for hypertension, hyperlipidemia, factor V Leiden, polyneuropathy, sleep apnea and glaucoma who presents to the ER after falling and hitting his head today. The patient states he was cutting wood today when he stepped back and tripped falling backwards striking his head. He reports no loss of consciousness and reports no contusions or lacerations. He was ambulatory following the incident and complaints of persistent midline neck pain and bilateral hand paresthesias that he describes like ?stinging shaye. That extends up to his elbows and is more prominent on the dorsum of the hand and over the 4th and 5th digits. He has intact motor but decreased dexterity. Reports no other trauma and has had no other recent illness or exposure to COVID-19. He has no fevers or chills denies headache or dizziness. He has no c hest pain or palpitations, shortness of breath cough or wheezing. He denies complaints of abdominal pain, heartburn, nausea or vomiting. Reports no changes in bowel habits. He reports node difficulty urinating. Upon arrival the ER the patient is afebrile with temperature 98.3?, heart rate of 70, blood pressure marked elevated 192/83, respiration 16 and saturating 98% on room air. Patient had a cervical CT which finds prominent degenerative changes with moderate disc narrowing at C4-5, moderate/severe at C5-6 and C6-7, bridging osteophytes anteriorly C2 through T3. Head CT finds no acute intracranial pathology, soft tissue of the neck was also obtained which finds no fractures or malalignment, no abnormal lesions. Imaging is also obtained of the left shoulder which shows osteoarthritic changes and of the left elbow which finds an 8 mm lytic cyst in the distal humerus but no fractures. On laboratory analysis he has a white count of 10.3, it hemoglobin of 13.3, hematocrit of 38.1, platelets of 202. His electrolytes are within normal limits and he has a BUN of 21 and creatinine 112. His nonfasting glucose is 136. His liver enzymes are within normal limits. The patient's evaluated as a trauma patient surgery consulted with no further recommendations. [place] neurosurgery also does consulted who recommends an MRI in the morning and request the images be pushed to [place] for review. While in the ER the patient received hydromorphone and a rigid collar is applied. The patient is admitted to the medicine service for cervical spine injury. Patient History Medical History Allergies (Acute) Ankle pain (Chronic) Chicken pox (Resolved) Factor V Leiden (Chronic) Foot pain (Chronic) Fractures (Resolved) Glaucoma (Chronic) Hearing deficit (Chronic) Hearing loss (Chronic) Hemorrhoid (Chronic) Herpes (Resolved) Hyperlipidemia (Chronic) Hypertension (Chronic ~1949) Measles (Resolved) Mumps (Resolved) Peripheral neuropathy (Chronic ~2007) Seasonal allergies (Chronic) Shoulder pain (Chronic) Sleep apnea (Chronic) Vision disorder (Chronic) Surgical History Anesthesia (Resolved) History of eye surgery (Resolved ~2007) History of tonsillectomy (~1962) Status post appendectomy (~1994) Status post knee surgery (~1967) Family & Social History Family History Father Factor V Leiden deficiency Cancer Grandfather Hypertension Stroke Grandmother Heart attack Diabetes mellitus Mother Diabetes mellitus Hypertension High cholesterol Grandmother Diabetes mellitus Grandfather No problems noted. Social History: household members spouse Prior Living Arrangements House Safety & Behavioral: Feels Safe in Current Yes Environment Been Physically Hurt or No Threatened By a Person Suicidal Ideation Description None Suicide Plan Description No Plan Tobacco & Substance use: Smoking Status Never smoker alcohol intake current alcohol intake frequency 0-2 drinks per day Substance Use Type does not use Comment: Advanced directives: In direct discussion with the patient he states his desire to be FULL CODE. He emphasizes wish not to have long-term life support or heroic measures. He designates his to be his surrogate decision maker. Meds Home Medications and Allergies Home Medications Medication Instructions Recorded Confirmed Type aspirin 81 mg PO QPM #0 10/09/17 02/28/20 History nitroglycerin [Nitrostat] 0.4 mg SUBLINGUAL PRN PRN #0 10/09/17 02/28/20 History ResMed AirSense 10 CPAP #1 ea 01/27/19 09/07/19 History fluticasone propionate 1 spray INTRANASAL QDAY PRN 02/07/19 09/07/19 History metoprolol succinate [Toprol XL] 25 mg PO QPM 02/07/19 02/28/20 History DISABLED PARKING PERMIT #1 each 02/15/19 09/07/19 Rx melatonin 10 mg capsule 10 mg PO BEDTIME PRN 02/15/19 02/28/20 History clopidogrel 75 mg tablet 75 mg PO QPM #90 tab 10/20/19 02/28/20 Rx atorvastatin 40 mg tablet 40 mg PO BEDTIME #90 tab 12/05/19 02/28/20 Rx Cmp Naltrexone 4.5 mg PO DAILY #90 caplet 01/12/20 02/28/20 Rx lisinopril 5 mg tablet 5 mg PO QPM #90 tab 01/26/20 02/28/20 Rx Allergies Allergy/AdvReac Type Severity Reaction Status Date / Time No Known Allergies Allergy Uncoded 09/21/19 12:00 Review of Systems Review of Systems ROS: Yes All systems reviewed with the patient and are negative except as otherwise documented Exam Vital Signs (past 8 hours): - 02/27/20 17:44 02/27/20 18:16 02/27/20 18:39 Temperature 98.3 F 98.8 F Pulse Rate 70 75 72 Respiratory Rate 16 20 20 Blood Pressure 192/83 H 201/95 H Blood Pressure [Right Arm] 180/81 H Pulse Oximetry 98 98 99 02/27/20 19:00 02/27/20 19:45 02/27/20 20:24 Temperature Pulse Rate 74 72 68 Respiratory Rate 37 H 25 H 17 Blood Pressure Blood Pressure [Right Arm] 205/92 H 153/82 H 155/74 H Pulse Oximetry 99 97 97 02/27/20 20:30 02/27/20 21:00 02/27/20 21:30 Temperature Pulse Rate 63 74 79 Respiratory Rate 16 20 21 Blood Pressure Blood Pressure [Right Arm] 117/57 L 150/72 H 178/81 H Pulse Oximetry 97 98 99 02/27/20 22:00 02/27/20 22:30 02/27/20 23:00 Temperature Pulse Rate 80 76 73 Respiratory Rate 21 20 18 Blood Pressure Blood Pressure [Right Arm] 197/90 H 184/87 H 181/87 H Pulse Oximetry 98 98 97 02/28/20 00:00 Temperature Pulse Rate 80 Respiratory Rate 17 Blood Pressure Blood Pressure [Right Arm] 163/79 H Pulse Oximetry 96 Oxygen Delivery Method Room Air Narrative Exam Narrative: GENERAL APPEARANCE: well developed, well nourished, in no acute distress. HEENT: Atraumatic, PERRLA, conjunctiva clear, EOMs intact without nystagmus, no rhinorrhea, mucous membranes are moist and pink without lesions or exudate. NECK/THYROID: Rigid Truchas collar in place, tenderness midline cervical spine, no JVD, trachea midline. SKIN: [place], warm and dry, no visible lesions, rashes, ulcerations or petechiae. HEART: regular rate and rhythm, S1-S2, no murmur, no rubs or gallops, brisk capillary refill, no edema LUNGS: clear to auscultation bilaterally, no coarseness crackles or wheezing, no cough present CHEST: Symmetrical movement, no accessory muscle use, good tidal volume, no pain to AP lateral compression. ABDOMEN: Soft, no distention, no abdominal tenderness, no guarding or peritoneal signs, no organomegaly, no flank or suprapubic tenderness, active bowel tones. EXTREMITIES: moves all extremities, diminished coding and reimbursement specialist strength, lower extremity strength is 5/5 and symmetrical, no deformities or joint effusions. NEUROLOGIC: AAO x4, paresthesias bilateral upper extremities distal to the elbows most prominent on the ulnar aspect and dorsum of the hand, cranial nerves II-XII grossly intact, diminished dexterity right worse than left, hearing grossly normal to speech. PSYCH: Good eye contact, and gentle thought, appropriate with stable behavior Objective Labs Result Diagrams: 02/27/20 20:40 02/27/20 20:40 Labs: Laboratory Results - last 24 hr 02/27/20 02/27/20 02/27/20 20:40 20:40 20:40 WBC 10.3 RBC 3.97 L Hgb 13.3 L Hct 38.1 L MCV 96.0 MCH 33.6 MCHC 35.0 RDW 12.7 Plt Count 202 Neut % (Auto) 77.1 H Lymph % (Auto) 13.2 L [place] % (Auto) 8.5 Eos % (Auto) 0.4 L Baso % (Auto) 0.8 Neut # (Auto) 7900 H Lymph # (Auto) 1400 [place] # (Auto) 900 Eos # (Auto) 0 Baso # (Auto) 100 Sodium 139 Potassium 4.6 Chloride 106 Carbon Dioxide 24 BUN 21 H Creatinine 1.12 Estimated GFR > 60.0 BUN/Creatinine Ratio 18.8 Glucose 136 H Calcium 9.9 Total Bilirubin 1.1 AST 32 ALT 24 Alkaline Phosphatase 76 Total Protein 7.5 Albumin 4.5 Globulin 3.0 Albumin/Globulin Ratio 1.5 Lipase 81 Ethyl Alcohol < 10 Blood Type O Positive Antibody Screen Negative Assessment & Plan Assessment & Plan narrative: This is a 79-year-old male patient who sustained a mechanical ground level fall, he fell backwards striking the back his head with persistent C4-5 midline cervical spine pain with associated paresthesias bilateral upper extremities decreased in motor strength and dexterity. 1. Mechanical ground level fall, present on admission, active. -the patient sustained a trip and fall falling backwards and striking his head today. -the patient stay no loss of consciousness with complaints his neck pain is below. -patient is evaluated as a modified trauma and surgery has consulted with recommendation for rigid collar. -Truchas collar is applied, patient states improved comfort. -patient takes naltrexone 4.5 mg daily which is held. -patient received hydromorphone 0.5 mg in the ER with good effect but short lasting. -ordered oxycodone 5 mg or 10 mg as needed for pain. Will continue hydromorphone 0.5 as needed for breakthrough pain. 2. Cervical spine injury, C4-5, present on admission, active. -patient complains of pain on palpation midline posterior cervical spine at C4- 5. No palpable step-offs or muscle spasms. -following the injury the patient has bilateral upper extremity paresthesias described more as a burning or vice like pain extending from the elbows distally more significantly on the ulnar aspect and dorsum of the hand. Location paresthesias is more concerning for lower cervical involvement. -[place] neurosurgery is consulted through the ED with recommendations for MRI. -cervical MRI with and without is ordered in the morning. 3. Hypertension, present on admission, active -blood pressure on admission was markedly elevated 192/83 improving to 154/84 after admission to the floor. -elevated blood pressure is related to ongoing pain related to hand paresthesias. -will continue home regimen of lisinopril 5 mg daily and metoprolol 25 mg at night. 4. Polyneuropathy, present on admission, stable. -patient describes loss of muscle mass with slight decrease in lower extremity sensation. -patient reports no impairment in mobility and is able to perform all ADLs independently. -condition is stable at this time 5. Factor V Leiden, present on admission, stable. -patient does not have history DVTs and is on prophylaxis with aspirin and Plavix. -DVT prophylaxis initiated with bilateral SCDs and subcutaneous heparin. 6. Hyperlipidemia, present on admission, stable -will continue patient's home regimen of atorvastatin 40 mg daily at bedtime. 7. Sleep apnea, present on admission, stable. -the patient did not bring his CPAP machine to the hospital with him. His patient stays another day will have patient's bring his home equipment. -will monitor oxygen saturation. Isolation: None. VTE prophylaxis: Bilateral SCDs and heparin. IV fluid: Normal saline 100 cc per hour Diet: Heart healthy Code status: FULL CODE. The patient is admitted to the hospital for further assessment and evaluation neurological moderate. The patient is admitted as observation with expected length of stay to be less than 2 midnights. COVID-19 COVID-19 status: Not tested
[2020-02-28] MEDS: OXYCODONE IR 5 MG TABLET PO ×2 (02:41→14:25)
[2020-02-28 05:46] LABS: Alanine Aminotransferase 23 IU/L (<50); Albumin 4.4 g/dL (3.5-5.0); Albumin Globulin Ratio 1.5 (1.0-2.8); Alkaline Phosphatase 58 U/L (38-126); Aspartate Aminotransferase 34 IU/L (17-59); BUN Creatinine Ratio 19.4 (6-22); Bilirubin Total 1.5 mg/dL (0.2-1.3); Blood Urea Nitrogen 20 mg/dL (9-20); Calcium 9.6 mg/dL (8.4-10.2); Carbon Dioxide 25 mmol/L (22-32); Chloride 104 mmol/L (98-107); Estimated Glomerular Filt Rate > 60.0 mL/min (>60); Glucose 153 mg/dL (80-110); HEMOLYSIS < 15 (0-50); Potassium 3.8 mmol/L (3.4-5.1); Sodium 137 mmol/L (137-145); Total Protein 7.4 g/dL (6.3-8.2)
[2020-02-28] MEDS: HEPARIN 5,000 UNIT/ML VIAL 5000 UNIT SUBCUT (08:05)
[2020-02-28] MEDS: OXYCODONE IR 5 MG TABLET 10 MG PO (08:06)
--- NOTE | 2020-02-28 10:15 | PT-IP ANOTE ---
per doctor: PT on hold pending MRI result.
--- NOTE | 2020-02-28 10:25 | CM.DANOTE ---
Discharge Planning/Care Management DCP: assessment: case received, EMR reviewed, discussed in Team Rounds. Met now with pt and introduced self and role. Pt is a 79 year old male who admitted last night to care of hospitalist team. Payer: [facility] Admission status: OBS thus far, per UR RN Stephen. MRI results are pending. PCP: Dr. Ethan Ruiz will see pt today. He has consulted with [place] neurology team who recommends MRI. PT and OT evals are pending the results of the MRI. At this time pt is on bedrest. Pt is found lying in bed, hard cervical collar in place. He is complaining of serve nerve pain in bilateral UR, especially on L. He notes it was extremely difficult to sleep last night because of the sudden and severe nature of same. Pt lives with his Radha: [phone] [facility]. He confirms that she will likely be the one who picks him up at d/c when he is stable for the home setting. He describes himself as functionally independent in the community and was chopping wood at time of his fall. He notes concerns re the [facility] with last run being 8:30PM. His will need plenty of time to coordinate her trip off [place] and to the hospital. P: at this point full dx and tx plan are in process. Will know more after MRI and PT/OT. DCP team will be following. CM Discharge Assessment Start: 02/28/20 10:18 Freq: Status: Active Protocol: Document 02/28/20 10:18 ITV (Rec: 02/28/20 10:25 ITV [id number]) Discharge Planning Assessment Advance Directives? Yes History Provided By Patient,Medical Record Has Patient been admitted in last 30 No days? Prior Living Arrangements House Household Members spouse Independent with ADL's Yes Is patient alert and oriented? Yes White board: Updated in Patient Room with Yes # of Discharge Planners Review Status In Process
--- NOTE | 2020-02-28 11:46 | CM.MNRNOTE ---
Pt given 10mg of oxycodone for pain to l.hand. He stated that his pain was a 6/7. Down to MRI now.
--- NOTE | 2020-02-28 13:03 | PT.IIE ---
Surgical History (Last Reviewed 02/28/20 @ 07:44 by Anna Fontenot MD) Anesthesia (Resolved) History of eye surgery (Resolved ~2007) History of tonsillectomy (~1962) Status post appendectomy (~1994) Status post knee surgery (~1967) Medical History (Last Reviewed 02/28/20 @ 07:44 by Anna Fontenot MD) Allergies (Acute) Ankle pain (Chronic) Chicken pox (Resolved) Factor V Leiden (Chronic) Foot pain (Chronic) Fractures (Resolved) Glaucoma (Chronic) Hearing deficit (Chronic) Hearing loss (Chronic) Hemorrhoid (Chronic) Herpes (Resolved) Hyperlipidemia (Chronic) Hypertension (Chronic ~1949) Measles (Resolved) Mumps (Resolved) Peripheral neuropathy (Chronic ~2007) Seasonal allergies (Chronic) Shoulder pain (Chronic) Sleep apnea (Chronic) Vision disorder (Chronic) Physical Therapy Inpatient Evaluation/Re-Eval M1 PT/OT-IP Prior Functional Status Start: 02/28/20 14:51 Freq: NEEDED Status: Active Protocol: Document 02/28/20 13:03 AB (Rec: 02/28/20 15:43 AB [id number]) Medical Review Prior Functional Status Medical History Reviewed Yes Communication able to make needs known Mobility and Gait pt stated that he is independent with all mobilities and ambulation without AD but with h/o falls at home Social History Household Members spouse Living Arrangements House Number of Floors (Floors) One Floor Number of Stairs To Enter/Railing? pt lives in [facility] no steps to enter Home Environment High Toilet,Walk in Shower, Built-In Shower Seat Home Equipment Hand Held Shower,Grab Bars In Shower Additional Social History Comment pt has an adjustable bed M2 PT-IP Current Condition Start: 02/28/20 14:51 Freq: NEEDED Status: Active Protocol: Document 02/28/20 13:03 AB (Rec: 02/28/20 15:43 AB [id number]) Physical Therapy Current Condition Current Condition Evaluation Date 02/28/20 Treatment Diagnosis s/p fall; cervical spinal injury C4-5; difficulty in walking Onset Date 02/27/20 Precautions Cervical Spine Precautions Soft Collar at all Times,Rigid Collar,No Heavy Lifting,Log Roll Brace pt has an aspen cervical collar M3 PT-IP Subjective Start: 02/28/20 14:51 Freq: NEEDED Status: Active Protocol: Document 02/28/20 13:03 AB (Rec: 02/28/20 15:43 AB [id number]) Subjective Physical Therapy Visit Type Type Initial Evaluation Visit Start Time 13:03 Visit Stop Time 13:29 Total Visit Minutes 26 Number of AIRCRAFT PART ASSEMBLER Visits 0 Physical Therapy Visit Comments Patient Comments pt is agreeable to do PT Therapy Pain Assessment Pain When Pain Assessed At Rest Pain Present Pain Present Pain Reported Location Left Hand Intensity 7 Scale Used increases with light touch/ contact Description Stabbing Pain Management Techniques Timing of Activity with Medications Bilateral Hand Description Chronic M4 PT-IP Mobility and Gait Start: 02/28/20 14:51 Freq: NEEDED Status: Active Protocol: Document 02/28/20 13:03 AB (Rec: 02/28/20 15:43 AB [id number]) PT-Bed Mobility Assessment Rolling Type of Rolling Log Rolling Level of Assist Standby Assistance Supine to Sit Supine to Sit Standby Assistance Sit to Supine Sit to Supine Standby Assistance Scooting Scooting to Edge of Bed Standby Assistance Scooting Up and Down in Bed Standby Assistance PT-Transfer Assessment Sit to and From Stand Sit to and from Stand Standby Assistance Equipment Transfer Assistive Device None,Gait Belt Transfers Transfer Destination Chair Transfer Technique ambulated without AD Transfer Ability Level of Assist Standby Assistance,1 Person Assistance,Use of Upper Extremities Comments Mobility Comments pt educated on cervical precautions and safety. 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 completed sit to stand from EOB SBA and ambulated ~ 50 ft without AD SBA. pt presents with unsteady gait but without LOB. tinetti assessment completed. pt agreed to sit up on chair. pt positioned on chair. call light and table placed within reach. Gait Assessment Gait Gait Assistance Required: Standby Assistance Distance (Feet) 50 Able to Maintain Weight Bearing Status Yes During Gait Assistive Devices Assistive Device None,Gait Belt Orthotic/Prosthetic Devices or Brace: No Gait Deviations General Gait Pattern Antalgic,Wide Based Gait Factors Limiting Gait Function Factors Limiting Gait Function Decreased Sensation,Decreased Strength,Limited Range of Motion,Pain,Poor Balance,Poor Safety Awareness PT-Balance Assessment Sitting Balance and Reactions Static Sitting Balance Ability Normal Dynamic Sitting Balance Ability Normal Standing Balance and Reactions Static Standing Balance Ability Good Dynamic Standing Balance Ability Fair Device Used without AD Comments Other Balance Tests/Deviations/Treatment Tinetti Balance Assessment: : balance assessment: 10/17 gait assessment: 08/13 total score which relates to moderate fall risk. Functional Assessments Functional Tests Tinetti Balance and Gait Assessment moderate fall risk M5 PT-IP Objective Assessments Start: 02/28/20 14:51 Freq: NEEDED Status: Active Protocol: Document 02/28/20 13:03 AB (Rec: 02/28/20 15:43 AB [id number]) Orientation Orientation/Cognition Level of Alertness Alert Orientation Name,Place,Situation Language Function Ability No Deficits Noted Safety Awareness Decreased Safety Awareness Gross Range of Motion Lower Extremity ROM Assessment Within Functional Limits Strength Lower Extremity Strength Assessment Within Functional Limits Coordination Assessment Gross Coordination Gross Coordination WNL Sensation Assessment Sensation Light Touch Impaired Proprioception (Position) Impaired Sensation Description Hyperesthesia,Tingling,Pain Muscle Tone Muscle Tone WNL Yes M6 PT-IP Treatment Start: 02/28/20 14:51 Freq: NEEDED Status: Active Protocol: Document 02/28/20 13:03 AB (Rec: 02/28/20 15:43 AB [id number]) Physical Therapy Treatment Education Education Provided Precautions,Safety M7 PT-IP Assessment and Plan Start: 02/28/20 14:51 Freq: NEEDED Status: Active Protocol: Document 02/28/20 13:03 AB (Rec: 02/28/20 15:43 AB [id number]) PT Summary Assessment and Plan Potential Rehabilitation Potential Good Status of Condition at Evaluation Stable Summary Impairments Pain,ROM,Strength,Balance, Coordination,Sensation, Cognition,Bed Mobility, Transfers,Gait,Activity Tolerance Assessment Summary pt requiring SBA with mobility and plans to go home with spouse to assist. pt is a moderate risk of falls at this time and spouse is aware and will be able to assist pt. Goals Bed Mobility Goal Independent Transfer Goal Independent Gait Goal Independent Gait Distance 200 Days to Meet Goals 5 Frequency of Treatment Frequency Of Treatment Once a Day Treatment Plan Physical Therapy Treatment Plan Bed Mobility Training,Transfer Training,Gait Training, Therapeutic Exercise,Balance Retraining,Discharge Planning, Hot or Cold Pack,Neuromuscular Re-ed Recommendations To Nursing Amount of Assist Needed Standby Assistance Discharge Recommendations PT Discharge Recommendations Home with Assistance Transportation Needs at Discharge Private Vehicle
--- NOTE | 2020-02-28 13:59 | CM.DPNOTE ---
Kiara reviewed with patient. Pt. not comfortable signing at this time but verablized his understanding. Wants to speak to .
--- NOTE | 2020-02-28 14:55 | P.DS_ITS ---
History of Present Illness History of Present Illness Date Patient Seen: 02/28/20 Time Patient Seen: 14:55 Chief complaint: Fell hit head/ Neck px Narrative: As per IDA Us: Mr. Guero Swanson is a 79-year-old male with a history significant for hypertension, hyperlipidemia, factor V Leiden, polyneuropathy, sleep apnea and glaucoma who presents to the ER after falling and hitting his head today. The patient states he was cutting wood today when he stepped back and tripped falling backwards striking his head. He reports no loss of consciousness and reports no contusions or lacerations. He was ambulatory following the incident and complaints of persistent midline neck pain and bilateral hand paresthesias t hat he describes like ?stinging shaye. That extends up to his elbows and is more prominent on the dorsum of the hand and over the 4th and 5th digits. He has intact motor but decreased dexterity. Reports no other trauma and has had no other recent illness or exposure to COVID-19. He has no fevers or chills denies headache or dizziness. He has no chest pain or palpitations, shortness of breath cough or wheezing. He denies complaints of abdominal pain, heartburn, nausea or vomiting. Reports no changes in bowel habits. He reports node difficulty urinating. Upon arrival the ER the patient is afebrile with temperature 98.3?, heart rate of 70, blood pressure marked elevated 192/83, respiration 16 and saturating 98% on room air. Patient had a cervical CT which finds prominent degenerative changes with moderate disc narrowing at C4-5, moderate/severe at C5-6 and C6-7, bridging osteophytes anteriorly C2 through T3. Head CT finds no acute intracranial pathology, soft tissue of the neck was also obtained which finds no fractures or malalignment, no abnormal lesions. Imaging is also obtained of the left shoulder which shows osteoarthritic changes and of the left elbow which finds an 8 mm lytic cyst in the distal humerus but no fractures. On laboratory analysis he has a white count of 10.3, it hemoglobin of 13.3, hematocrit of 38.1, platelets of 202. His electrolytes are within normal limits and he has a BUN of 21 and creatinine 112. His nonfasting glucose is 136. His liver enzymes are within normal limits. The patient's evaluated as a trauma patient surgery consulted with no further recommendations. [facility] also does consulted who recommends an MRI in the morning and request the images be pushed to [facility] for review. While in the ER the patient received hydromorphone and a rigid collar is applied. The patient is admitted to the medicine service for cervical spine injury. Discharge Providers Provider Date of admission: 02/27/20 22:42 Discharge Date: 02/28/20 Primary care physician: Socrates Tee MD Consults: 02/28/20 00:52 Consult to Discharge Planning Routine Comment: Consult to Occupational Therapy Evaluate & Treat Comment: Trauma, fall, cervical spine injury Physician Instructions: Evaluate and treat Consult to Physical Therapy Evaluate & Treat Comment: Trauma, fall, cervical spine injury Physician Instructions: Evaluate and Treat Discharge provider: Aleksandr Ruiz DO Summary Hospital Course Discharge Diagnosis: Please see hospital course by problem list noted below. Hospital Course: This is a 79-year-old male patient who sustained a mechanical ground level fall, he fell backwards striking the back his head with persistent C4-5 midline cervical spine pain with associated paresthesias bilateral upper extremities decreased in motor strength and dexterity. He underwent an MRI which did not show any acute spinal cord pathologies. His symptoms did improve while admitted under observation. Reviewed MRI with [facility] whom stated that there may be a small amount of edema surrounding the spinal ligaments but no other acute pathologies. Recommended C-collar use for the next 6 weeks and they will work on scheduling a telehealth visit in the next few weeks. 1. Mechanical ground level fall, present on admission, active. -the patient sustained a trip and fall falling backwards and striking his head. MRI obtained which is discussed above. 2. Bilateral paresthesia, present on admission - concern for cervical spine injury, however MRI as noted above did not show significant damage. -MRI as discussed above -outpatient pain control with gabapentin for paresthesias, oxycodone, and muscle relaxants -He did not have midline cervical pain on discharge exam. 3. Hypertension, present on admission, active -blood pressure on admission was markedly elevated 192/83 improving to 154/84 after admission to the floor. -elevated blood pressure is related to ongoing pain related to hand paresthesias. -No changes are recommended at this time to home regimen of lisinopril 5 mg daily and metoprolol 25 mg at night. 4. Polyneuropathy, present on admission, stable. -patient describes loss of muscle mass with slight decrease in lower extremity sensation. -patient reports no impairment in mobility and is able to perform all ADLs independently. -condition is stable at this time -gabapentin prescribe for new paresthesias as noted above. 5. Factor V Leiden, present on admission, stable. -patient does not have history DVTs and is on prophylaxis with aspirin and Plavix. -avoid NSAID for pain control. 6. Hyperlipidemia, present on admission, stable 7. Sleep apnea, present on admission, stable. Exam Vital Signs (past 8 hours): - 02/28/20 08:24 02/28/20 08:49 02/28/20 12:04 Temperature 98.3 F 98.0 F Pulse Rate 71 97 H Respiratory Rate 16 16 Blood Pressure 153/83 H 152/86 H Pulse Oximetry 97 97 97 Oxygen Delivery Method Room Air Oxygen Flow Rate 0 Narrative Exam Narrative: GENERAL APPEARANCE: well developed, well nourished, in no acute distress. HEENT: Atraumatic, PERRLA, conjunctiva clear, EOMs intact without nystagmus, no rhinorrhea, mucous membranes are moist and pink without lesions or exudate. NECK/THYROID: Rigid Palm collar in place, no tenderness midline cervical spine, no JVD, trachea midline. SKIN: [place], warm and dry, no visible lesions, rashes, ulcerations or petechiae. HEART: regular rate and rhythm, S1-S2, no murmur, no rubs or gallops, brisk capi llary refill, no edema LUNGS: clear to auscultation bilaterally, no coarseness crackles or wheezing, no cough present CHEST: Symmetrical movement, no accessory muscle use, good tidal volume, no pain to AP lateral compression. ABDOMEN: Soft, no distention, no abdominal tenderness, no guarding or per itoneal signs, no organomegaly, no flank or suprapubic tenderness, active bowel tones. EXTREMITIES: moves all extremities, diminished preload supervisor strength bilaterally mainly with thumb and pointer finger, lower extremity strength is 5/5 and symmetrical, no deformities or joint effusions. NEUROLOGIC: AAO x4, paresthesias bilateral upper extremities distal to the elbows most prominent on the ulnar aspect and dorsum of the hand, cranial nerves II-XII grossly intact, hearing grossly normal to speech. PSYCH: Good eye contact, and gentle thought, appropriate with stable behavior Objective Labs Result Diagrams: 02/27/20 20:40 02/28/20 05:10 Labs: Laboratory Results - last 24 hr 02/27/20 02/27/20 02/27/20 20:40 20:40 20:40 WBC 10.3 RBC 3.97 L Hgb 13.3 L Hct 38.1 L MCV 96.0 MCH 33.6 MCHC 35.0 RDW 12.7 Plt Count 202 Neut % (Auto) 77.1 H Lymph % (Auto) 13.2 L [place] % (Auto) 8.5 Eos % (Auto) 0.4 L Baso % (Auto) 0.8 Neut # (Auto) 7900 H Lymph # (Auto) 1400 [place] # (Auto) 900 Eos # (Auto) 0 Baso # (Auto) 100 Sodium 139 Potassium 4.6 Chloride 106 Carbon Dioxide 24 BUN 21 H Creatinine 1.12 Estimated GFR > 60.0 BUN/Creatinine Ratio 18.8 Glucose 136 H Calcium 9.9 Total Bilirubin 1.1 AST 32 ALT 24 Alkaline Phosphatase 76 Total Protein 7.5 Albumin 4.5 Globulin 3.0 Albumin/Globulin Ratio 1.5 Lipase 81 Ethyl Alcohol < 10 Blood Type O Positive Antibody Screen Negative 02/28/20 05:10 WBC RBC Hgb Hct MCV MCH MCHC RDW Plt Count Neut % (Auto) Lymph % (Auto) [place] % (Auto) Eos % (Auto) Baso % (Auto) Neut # (Auto) Lymph # (Auto) [place] # (Auto) Eos # (Auto) Baso # (Auto) Sodium 137 Potassium 3.8 Chloride 104 Carbon Dioxide 25 BUN 20 Creatinine 1.03 Estimated GFR > 60.0 BUN/Creatinine Ratio 19.4 Glucose 153 H Calcium 9.6 Total Bilirubin 1.5 H AST 34 ALT 23 Alkaline Phosphatase 58 Total Protein 7.4 Albumin 4.4 Globulin 3.0 Albumin/Globulin Ratio 1.5 Lipase Ethyl Alcohol Blood Type Antibody Screen Discharge Plan Discharge Plan Patient Disposition: Home Discharge comment: You were admitted to the hospital after a fall. You started suffering some paresthesias on your hands and underwent a cervical MRI. This did not show any spinal cord pathology other than chronic disc disease and possibly some mild swelling around the ligaments according to the neurosurgeons at [facility]. The neurosurgeons are planning on doing a virtual visit with you in the next few weeks, and they will reach out and schedule this with you to check on your symptoms. They also recommend that you wear cervical collar as much as possible over the next 6 weeks. In the meantime you are being prescribed a mu scle relaxant, a small amount of opiate pain medicines, and gabapentin. Please do not mix the opiates and muscle relaxants within 4 hours of each other. You should take the gabapentin 3 times a day. Discharge orders & Medications Prescriptions: New oxycodone 5 mg tablet 5 mg PO Q6H PRN (Reason: pain) 7 Days Qty: 15 RF: 0 gabapentin 300 mg capsule 300 mg PO TID 30 Days Qty: 90 RF: 0 methocarbamol [Robaxin-750] 750 mg tablet 750 mg PO Q8H PRN (Reason: muscle spasm) 7 Days Qty: 20 RF: 0 Continued aspirin 81 MG tablet,delayed release (DR/EC) 81 mg PO QPM Qty: 0 RF: 0 nitroglycerin [Nitrostat] 0.4 MG tablet, sublingual 0.4 mg Sublingual PRN PRN (Reason: Chest Pain) Qty: 0 RF: 0 clopidogrel 75 mg tablet 75 mg PO QPM Qty: 90 RF: 1 atorvastatin [Lipitor] 40 mg tablet 40 mg PO BEDTIME Qty: 90 RF: 3 Cmp Naltrexone 4.5 mg capsule 4.5 mg PO DAILY Qty: 90 RF: 0 lisinopril 5 mg tablet 5 mg PO QPM Qty: 90 RF: 3 (DME) DISABLED PARKING PERMIT 0 .ROUTE .MEDSUPPLY Qty: 1 RF: 0 metoprolol succinate [Toprol XL] 25 mg tablet extended release 24 hr 25 mg PO QPM RF: 0 fluticasone propionate 16 GM spray,suspension 1 spray Intranasal QDAY PRN (Reason: Allergy Symptoms) RF: 0 (DME) ResMed AirSense 10 CPAP Qty: 1 RF: 0 melatonin 10 mg capsule 10 mg PO BEDTIME PRN (Reason: Sleep) RF: 0 Follow up/Referrals: Socrates Tee MD [Primary Care Provider] - Diet/Activity/Treatments Diet: Diet as Tolerated Activity: As tolerated Discharge Data Primary Care Provider: Socrates Tee Attending Provider: Aleksandr Fowler Admit Date/Time: 02/27/20 22:42 Discharges patient from system. Discharge Date/Time: 02/28/20 15:47
--- NOTE | 2020-02-28 15:24 | OT.IP.EVAL ---
Past Medical History (Last Reviewed 02/28/20 @ 07:44 by Anna Fontenot MD) Allergies (Acute) Ankle pain (Chronic) Chicken pox (Resolved) Factor V Leiden (Chronic) Foot pain (Chronic) Fractures (Resolved) Glaucoma (Chronic) Hearing deficit (Chronic) Hearing loss (Chronic) Hemorrhoid (Chronic) Herpes (Resolved) Hyperlipidemia (Chronic) Hypertension (Chronic ~1949) Measles (Resolved) Mumps (Resolved) Peripheral neuropathy (Chronic ~2007) Seasonal allergies (Chronic) Shoulder pain (Chronic) Sleep apnea (Chronic) Vision disorder (Chronic) Surgical History (Last Reviewed 02/28/20 @ 07:44 by Anna Fontenot MD) Anesthesia (Resolved) History of eye surgery (Resolved ~2007) History of tonsillectomy (~1962) Status post appendectomy (~1994) Status post knee surgery (~1967) Occupational Therapy Inpatient Evaluation/Re-Eval M1 PT/OT-IP Prior Functional Status Start: 02/28/20 15:26 Freq: NEEDED Status: Active Protocol: Document 02/28/20 15:27 [facility] (Rec: 02/28/20 16:10 [facility] [id number]) Medical Review Prior Functional Status Medical History Reviewed Yes Communication Independent Mobility and Gait Independent without any devices. Activities of Daily Living and IADL's Completely independent with all ADL and IADL needs. Pt's pays the bills. Social History Household Members spouse Living Arrangements House Number of Floors (Floors) One Floor Number of Stairs To Enter/Railing? No steps. Home Environment High Toilet,Walk in Shower Home Equipment Hand Held Shower,Grab Bars In Shower M2 OT-IP Current Condition Start: 02/28/20 16:11 Freq: Status: Active Protocol: Document 02/28/20 15:27 [facility] (Rec: 02/28/20 16:10 [facility] [id number]) Occupational Therapy Current Condition Current Condition Evaluation Date 02/28/20 Treatment Diagnosis mechanical fall Diagnosis Onset Date 02/27/20 Post Operative Precautions Cervical Spine Precautions Rigid Collar Other Precautions [facility] neuro surgeon has recommended that pt wear the rigid collar on as much as possible. Weight Bearing Status Weight Bearing Status Weight Bear as Tolerated M3 OT- IP Subjective and Pain Start: 02/28/20 16:11 Freq: Status: Active Protocol: Document 02/28/20 15:27 [facility] (Rec: 02/28/20 16:10 [facility] [id number]) OT- Subjective Occupational Therapy Visit Type Type Initial Evaluation Visit Start Time 13:04 Visit Stop Time 15:24 Total Visit Minutes 37 Notes Pt seen initially for OT eval and then later for caregiver training with pt's . Occupational Therapy Visit Comments Patient Comments Pt agreeable to get up for OT eval, PT also present for eval . Patient/Caregiver Goals To go home. OT Pain Assessment Pain When Pain Assessed At Rest Pain Present Pain Present Pain Reported Location Bilateral Hand Intensity 7 Scale Used Numeric (1 - 10) M4 OT- IP ADL's Start: 02/28/20 16:11 Freq: Status: Active Protocol: Document 02/28/20 15:27 [facility] (Rec: 02/28/20 16:10 [facility] [id number]) OT [id number] Comments OT Self-Feeding Comments Not at meal time. Cues to eat softer food or chew food thoroughly , and use of straw to drink. OT ADL-Grooming Comments OT Grooming Comments Pt not wanting to do any at this time or be educated on to shavon/doff the aspen collar. 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 OT ADL-Dressing General Eval Lower Body Dressing Ability Maximum Assistance Areas Needing Assistance Socks Comments OT Dressing Comments At this time due to pain with left arm/hand, not able to use left hand to assist for LB dressing needs and will have to assist for needs. OT ADL-Toileting Comments OT Toileting Comments Pt not having to go, issued pt urinal to take home to use as needed. OT ADL-Bathing Comments OT Bathing Comments Pt not wanting to shower. Educated to shower from collar down and with HHSP. M5 OT- IP IADL's Start: 02/28/20 16:11 Freq: Status: Active Protocol: Document 02/28/20 15:27 [facility] (Rec: 02/28/20 16:10 [facility] [id number]) OT-Instrumental Activities of Daily Living Home Safety Awareness Awareness of Need for Assistance at Home Decreased Awareness Home Safety Comments At this time reiterated for pt to let assist for IADL needs and to be careful to prevent from another fall. Medication Management Medication Management Comments to provide superivision . Money Management Money Management Caregiver Provides Assistance Meal Preparation Meal Preparation Caregiver Provides Assist Machinery Erector Machinery Erector Caregiver Provides Assist Driving Driving Comments Pt aware no driving at this time. M6 OT- IP Functional Cognition Start: 02/28/20 16:11 Freq: Status: Active Protocol: Document 02/28/20 15:27 [facility] (Rec: 02/28/20 16:10 [facility] [id number]) Cognitive Factors Limiting Selfcare Function Cognitive Ability Level of Alertness Alert Patient Orientation Name,Place,Situation Attention Span Ability Capable of Focused Attention, Capable of Sustained Attention Ability to Follow Commands Able to Follow One Step Commands Memory Description Short Term Impaired Safety Awareness Underestimates Need for Assistance Cognitive Comments Cognitive Assessment Comments Pt 's states noted pt's decreased cognition/safety awareness due to pain medications and due to having pain. OT- Vision and Hearing OT- Hearing Assessment OT- Hearing Assessment WFL M7 OT- IP Mobility and Balance Start: 02/28/20 16:11 Freq: Status: Active Protocol: Document 02/28/20 15:27 [facility] (Rec: 02/28/20 16:10 [facility] [id number]) OT- Bed Mobility Assessment Rolling Type of Rolling Log Rolling Supine to Sit Supine to Sit Assist Standby Assistance Sit to Supine Sit to Supine Assist Standby Assistance Scooting Scooting to Edge of Bed Standby Assistance OT-Transfer Assessment Sit to and From Stand Sit to and from Stand Standby Assistance Transfers Transfer Ability Standby Assistance Technique Transfer Destination Bed,Chair Transfer Technique Stand Step Pivot Devices Transfer Assistive Devices Gait Belt Comments Mobility Comments SBA for mobility and at time a slight lean to the left. Pt' s aware to provide SBA and use of gait belt for uneven surfaces as needed. OT- Balance Assessment Sitting Balance and Reactions Static Sitting Balance Ability Normal Dynamic Sitting Balance Ability Good Standing Balance and Reactions Static Standing Balance Ability Good M8 OT- IP Objective Assessments Start: 02/28/20 16:11 Freq: Status: Active Protocol: Document 02/28/20 15:27 [facility] (Rec: 02/28/20 16:10 [facility] [id number]) OT Gross Range of Motion Upper Extremity Range of Motion Assessment Left Impaired OT Strength Upper Extremity Strength Assessment Left Impaired Comments Strength Comments RUE WFL, LUE able to raise arms up over his head but unable to tolerate any pressure or touch to his left arm especially in his hand. OT Sensation Assessment Comments Summary Comments Pt complaining of pain in his left arm-tingling and stabbing pain. M9 OT- IP Assessment and Plan Start: 02/28/20 16:11 Freq: Status: Active Protocol: Document 02/28/20 15:27 [facility] (Rec: 02/28/20 16:10 [facility] [id number]) OT Summary Assessment and Plan Potential Rehabilitation Potential Good Analytic Complexity at Evaluation Low Summary OT Impairments Pain,Balance,Functional Cognition,Functional Mobility, Grooming,Dressing,Toileting, Bathing,Toilet Transfers, Shower Transfers,Activity Tolerance Progress Towards Goals Progressing Toward Goals Assessment Summary Pt low complexity and had a fall backwards landing on his head, per chart MRI did not show any spinal pathology but possible mild swelling around the ligament and recommended to wear aspen collar as much as possible for next 6 weeks per neurosurgeons at [facility]. 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 Goals Patient/Caregiver Education Goal Caregiver Independent Assisting Patient Days to Meet Goals 1 Frequency of Treatment Frequency Of Treatment Once a Day Treatment Plan OT Treatment Plan ADL Training,Functional Mobility,Patient/Family Education,Discharge Planning Discharge Recommendations OT Discharge Recommendations Home with 25/05 Assist Transportation Needs at Discharge Private Vehicle
--- NOTE | 2020-02-28 15:38 | CM.DANOTE ---
Pt discharged in care of De[facility], to home with private car. Patient states he understands his medications and follow up medical care appointment. He has all of his belongings and his discharge paperwork.
== END 2020-02-28 15:47 | disposition home or self-care (01) ==
LOC: ED 22:42 → AC 22:42
PROVIDERS: Admitting Provider Nurse Practitioner Adult Health; Emergency Provider Emergency Medicine; PCP Family Medicine; Visit Provider Nurse Practitioner Adult Health
DX: M54.2 Cervicalgia (principal); W01.10XA Fall on same level from slipping, tripping and stumbling with subsequent striking against unspecified object, initial encounter; Y93.H9 Activity, other involving exterior property and land maintenance, building and construction; R20.2 Paresthesia of skin; I10 Essential (primary) hypertension; E78.5 Hyperlipidemia, unspecified; D68.51 Activated protein C resistance; G47.30 Sleep apnea, unspecified; G62.9 Polyneuropathy, unspecified; H40.9 Unspecified glaucoma
CPT/HCPCS: 36415; 70450; 70491; 72125; 72141; 73030; 73080; 80053; 80320; 83690; 85025; 86850; 86900; 86901; 93005; 94762; 96372; 96374; 96376; 97161; 97165; 97535; 99285; G0378; J1170; J1644

== ENCOUNTER → 2020-04-05 12:50 | Outpatient (CLI) | payer OTHER, SELFPAY ==
[2020-02-28 00:54] VITALS: BMI 25.7
--- NOTE | 2020-04-05 | DI.RAD.S_ITS ---
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 COMPARISON: None. FINDINGS: Bones: No fractures or dislocations to the T1 level. There is mild degenerative disc disease at C2-3 and C3-4. Moderate such degeneration is seen at C4-5 and C5-6. Moderately severe such degeneration in the seen with bridging osteophytes at C6-C7. No suspicious bony lesions. There is normal range of motion between flexion and extension, with preserved normal bony alignment. Facet osteoarthritis is mild superiorly, moderate at the middle third and moderately severe at the lower third of the cervical spine. Soft tissues: Prevertebral soft tissues are normal in thickness. IMPRESSION: The degenerative disc disease and facet osteoarthritis becomes progressively more prominent along the cervical spine as the cervicothoracic junction is approached. The likelihood of spinal and foraminal stenosis is considered high and followup by MR scanning likely is warranted depending on clinical status. Dictated by: Malcolm Victoria M.D. on 04/05/2020 at 14:58 Approved by: Malcolm Victoria M.D. on 04/05/2020 at 14:59
--- NOTE | 2020-04-05 12:59 | DI.RAD.S_ITS ---
PROCEDURE: XR HUMERUS LT 2V INDICATIONS: 6 month FU left humerous lesion TECHNIQUE: 2 views of the humerus were acquired. COMPARISON: [facility], MR, MR CERVICAL SPINE WO/W CON, 02/28/2020, 11:26. [facility], CR, XR CERVICAL SPINE 4V OR 5V, 04/05/2020, 13:01. [facility], CT, CT HEAD/BRAIN WO CON, 02/27/2020, 21:01. [facility], CR, XR ELBOW LT MIN 3V, 02/27/2020, 18:27. [facility], CR, XR SHOULDER LT MIN 2V, 02/27/2020, 18:27. FINDINGS: Bones: No fractures or dislocations. No new suspicious bony lesions. The radiolucent lesion within the diaphysis of the left humerus is located approximately at the junction of the middle and lower thirds and seen on the lateral view. This reviously had measured 0.8 cm and now measures 0.9 cm in the same area, not definitely enlarged due to differences in rotation. Soft tissues: No suspicious soft tissue calcifications. IMPRESSION: Single osteolucency diaphyseal lesion in the humerus. As discussed this measures currently 9 mm and had previously measured 8 mm. However differences in rotation may explain this appearance and it has not definitely increased nor has a new lesion developed. Multiple myeloma would be a potential etiology. This imaging represents a short time between the original image 02/27/20 and the current examination 04/05/20. The indication section above implies this is a 6 month followup. Is there an other image for review? Dictated by: Malcolm Victoria M.D. on 04/05/2020 at 15:15 Approved by: Malcolm Victoria M.D. on 04/05/2020 at 15:21
== END ==
PROVIDERS: PCP Family Medicine
DX: S14.129D Central cord syndrome at unspecified level of cervical spinal cord, subsequent encounter (principal); M89.9 Disorder of bone, unspecified; M47.812 Spondylosis without myelopathy or radiculopathy, cervical region; M50.31 Other cervical disc degeneration, high cervical region
CPT/HCPCS: 72050; 73060

== ENCOUNTER → 2020-11-08 11:18 | Outpatient (CLI) | payer OTHER, SELFPAY ==
[2020-02-28 00:54] VITALS: BMI 25.7
--- NOTE | 2020-11-08 11:20 | DI.RAD.S_ITS ---
PROCEDURE: XR HUMERUS LT 2V INDICATIONS: humerus lesion surveillance TECHNIQUE: 2 views of the humerus were acquired. COMPARISON: [facility], CR, XR SHOULDER LT MIN 2V, 02/27/2020, 18:27. [facility], CR, XR HUMERUS LT 2V, 04/05/2020, 13:01. FINDINGS: Bones: No fractures or dislocations. There is a 9 mm lucent lesion in the left humeral shaft, unchanged in size and appearance.. Soft tissues: No suspicious soft tissue calcifications. IMPRESSION: Stable lucent lesion in the left humeral shaft. Differential diagnoses include (but not limited to) multiple myeloma and metastasis. Dictated by: Ray Saunders M.D. on 11/08/2020 at 15:06 Approved by: Ray Saunders M.D. on 11/08/2020 at 15:10
[2020-11-08 12:39] LABS: Cholesterol 129 mg/dL (140-199); HDL Cholesterol 27 mg/dL (40-60); LDL Cholesterol Calculated 52 mg/dL (<100); Triglycerides 251 mg/dL (35-150)
== END ==
PROVIDERS: PCP Family Medicine; Referring Provider Family Medicine; Visit Provider Family Medicine
DX: M89.9 Disorder of bone, unspecified (principal); E78.5 Hyperlipidemia, unspecified
CPT/HCPCS: 36415; 73060; 80061

== ENCOUNTER → 2020-12-20 14:04 | Outpatient (CLI) | payer OTHER, SELFPAY ==
[2020-02-28 00:54] VITALS: BMI 25.7
[2020-12-20 14:37] LABS: Bacteria Urine None Seen; WBC Urine None Seen (0-5/HPF)
[2020-12-20 14:58] LABS: Appearance Urine UA CLEAR; Bilirubin Urine UA NEGATIVE (NEGATIVE); Color Urine UA YELLOW; Glucose Urine UA TRACE g/dL (Negative); Ketones Urine UA NEGATIVE (NEGATIVE); Leukocyte Esterase Urine UA NEGATIVE (NEGATIVE); Nitrite Urine UA NEGATIVE (Negative); Occult Blood Urine UA 3+ (Negative); Protein Urine UA 2+ (Negative); Specific Gravity Urine UA 1.025 (1.000-1.035); Urobilinogen Urine UA 0.2 E.U./dL (0.2)
[2020-12-20 15:07] LABS: Amorphous Sediment Urine 1+; Culture Indicated Urine Cult Not Indicated; RBC Urine 10-30/HPF (0-5/HPF)
== END ==
PROVIDERS: PCP Family Medicine; Visit Provider Family Medicine
DX: R31.9 Hematuria, unspecified (principal)
CPT/HCPCS: 81001

== ENCOUNTER → 2020-12-20 14:20 | Outpatient (CLI) | payer OTHER, SELFPAY ==
[2020-02-28 00:54] VITALS: BMI 25.7
[2020-12-20 16:13] LABS: Add Manual Diff / Slide Review NO; Basophils Absolute Auto 0 /uL (0-100); Basophils Percent Auto 0.7 % (0-2); Eosinophils Absolute Auto 300 /uL (0-450); Eosinophils Percent Auto 4.8 % (2-4); Hematocrit 40.7 % (41-53); Hemoglobin 14.3 g/dL (13.5-17.5); Lymphocytes Absolute Auto 1200 /uL (1100-4500); Lymphocytes Percent Auto 22.4 % (25-40); Mean Corpuscular HGB Conc 35.1 % (30-36); Mean Corpuscular Volume 96.9 fL (80-100); Monocytes Absolute Auto 500 /uL (0-900); Monocytes Percent Auto 9.9 % (3-14); Neutrophils Absolute Auto 3300 /uL (1500-7000); Neutrophils Percent Auto 62.2 % (50-75); Platelet Count 206 X10^3/uL (150-400); White Blood Cell Count 5.3 X10^3/uL (4.5-11.0)
[2020-12-20 16:47] LABS: Alanine Aminotransferase 27 IU/L (<50); Albumin 4.4 g/dL (3.5-5.0); Albumin Globulin Ratio 1.4 (1.0-2.8); Alkaline Phosphatase 84 U/L (38-126); Aspartate Aminotransferase 29 IU/L (17-59); BUN Creatinine Ratio 16.1 (6-22); Bilirubin Total 1.3 mg/dL (0.2-1.3); Blood Urea Nitrogen 18 mg/dL (9-20); Calcium 9.8 mg/dL (8.4-10.2); Carbon Dioxide 29 mmol/L (22-32); Chloride 104 mmol/L (98-107); Estimated Glomerular Filt Rate > 60.0 mL/min (>60); Globulin 3.1 g/dL (1.7-4.1); Glucose 169 mg/dL (80-110); HEMOLYSIS < 15 (0-50); Potassium 4.1 mmol/L (3.4-5.1); Sodium 140 mmol/L (137-145); Total Protein 7.5 g/dL (6.3-8.2)
== END ==
PROVIDERS: PCP Family Medicine; Referring Provider Family Medicine; Visit Provider Family Medicine
DX: R31.9 Hematuria, unspecified (principal)
CPT/HCPCS: 36415; 80053; 81001; 85025; 85610

== ENCOUNTER → 2020-12-31 09:55 | Outpatient (CLI) | payer OTHER, SELFPAY ==
[2020-02-28 00:54] VITALS: BMI 25.7
--- NOTE | 2020-12-31 09:56 | DI.CT.S_ITS ---
PROCEDURE: CT ABDOMEN PELVIS WO/W CON INDICATIONS: hematuria TECHNIQUE: Optional 5 mm thick noncontrast images acquired from the diaphragm to the symphysis pubis. After the administration of intravenous contrast, 5 mm thick images acquired from the diaphragm to the symphysis pubis after a 10-minute delay. 2 mm thick coronal and sagittal reformats were then performed of the kidneys and ureters. For radiation dose reduction, the following was used: automated exposure control, adjustment of mA and/or kV according to patient size. COMPARISON: US, RENAL OR RETROPERITONEAL LIMIT, 05/13/2017, 13:10. FINDINGS: Image quality: Excellent. Lung bases: Tiny juxta fissural lung nodules. Lung bases are otherwise clear. Heart size is normal. Partially imaged heavy coronary calcification. Urinary system: Both kidneys are normal in size, without hydronephrosis or nephrolithiasis on pre-contrast images. There is hyperdensity at the papilla tip in the lower pole left kidney but no formed calculus. No perinephric fat stranding. There is normal bilateral renal enhancement. 1.2 cm right lower pole renal cyst, 7 mm left midpole cyst, and 2.3 cm left upper pole renal cyst. Renal calyces appear normal in morphology when filled with contrast. Opacified portions of both ureters demonstrate normal caliber. Bladder wall thickness is normal. No calcified bladder stones. Enlarged prostate gland measuring about 5.9 x 5.4 x 6.5 cm with heterogeneous attenuation and a few calcifications. Other solid organs: Liver is normal in size and enhancement. Gallbladder is normal . Biliary system is non dilated. Pancreas enhances normally. Spleen is normal in size and enhancement. Subcentimeter nodule in the body of the right adrenal gland too small to characterize. Peritoneum and bowel: Bowel loops demonstrate normal wall thickness and caliber. No free fluid or air. Nodes and vessels: No retroperitoneal or mesenteric adenopathy by size criteria. Lobulated, fusiform mid and distal abdominal aortic aneurysm measuring 4.3 x 4.2 cm in AP and transverse diameter maximally, for a length of about 7.9 cm. Abdominal wall: No ventral hernias. Pelvis: No pathologic free pelvic fluid. No inguinal hernias or adenopathy. Bones: No suspicious bony lesions. Mild degenerative changes in the hip joints, partial ankylosis of the sacroiliac joints, and multilevel spondylosis in the spine. Prominent posterior osteophyte at the L2-3 level. No vertebral body compression fractures. IMPRESSION: 1. Heterogeneous enlarged prostate gland. Correlate with PSA. 2. No suspicious urinary calcifications. 3. A few bilateral renal cysts. 4. 4.3 cm abdominal aortic aneurysm. Consider vascular surgery consult and/or follow-up. 5. Heavy coronary artery calcification. Dictated by: Paula Donato M.D. on 12/31/2020 at 11:52 Approved by: Paula Donato M.D. on 12/31/2020 at 12:05
== END ==
PROVIDERS: PCP Family Medicine; Referring Provider Family Medicine; Visit Provider Family Medicine
DX: R31.9 Hematuria, unspecified (principal); N40.0 Benign prostatic hyperplasia without lower urinary tract symptoms; N28.1 Cyst of kidney, acquired; I71.4 Abdominal aortic aneurysm, without rupture; I25.10 Atherosclerotic heart disease of native coronary artery without angina pectoris
CPT/HCPCS: 74178

== ENCOUNTER → 2021-04-15 10:53 | Outpatient (CLI) | payer OTHER, SELFPAY ==
[2021-02-14 11:37] VITALS: BMI 25.7
[2021-04-15 12:48] LABS: Prostate Specific Antigen 2.31 ng/mL (0.10-4.00)
== END ==
PROVIDERS: PCP Family Medicine; Referring Provider Specialist; Visit Provider Specialist
DX: N40.3 Nodular prostate with lower urinary tract symptoms (principal)
CPT/HCPCS: 36415; 84153

== ENCOUNTER → 2021-05-03 15:55 | Outpatient (CLI) | payer OTHER, SELFPAY ==
[2021-02-14 11:37] VITALS: BMI 25.7
--- NOTE | 2021-05-03 15:56 | DI.MRI.S_ITS ---
PROCEDURE: MR pelvis WO/W CON INDICATIONS: Prostate CS TECHNIQUE: Coronal HASTE, axial T1 FSE with fat saturation, 3-plane nonbreath-hold T2 FSE. After the administration of contrast, dynamic axial, delayed axial and coronal VIBE or 2-D FLASH with fat saturation through the pelvis. Optional diffusion weighted imaging and ADC may be performed. COMPARISON: [facility], CT, CT ABDOMEN PELVIS WO/W CON, 12/31/2020, 10:24. FINDINGS: Image quality: Diffusion weighted and dynamic contrast enhanced images are diagnostic. Prostate: Gland size is 5.8 x 5.2 x 4.6 cm; ellipsoid gland volume is 72 mL. Multiple curvilinear foci of intrinsic T1 hyperintensity within the prostate gland which could be due to prior hemorrhage. Multiple BPH nodules. Midline prosthetic cyst measuring 0.9 cm, (03/10). Lesion size(s): Lesion 1: 2.4 x 2 x 1.8 cm, (05/17 and 03/12). Lesion 2: 1.9 x 1.8 x 1.8, (05/12 and 03/11). Lesion location(s) (sector): Lesion 1: Right mid gland and apex peripheral zone. Lesion 2: Right mid gland and base transitional zone. Lesion description: Lesion 1: Oval. Lesion 2: Oval. T2 weighted imaging (T2WI) morphology score: Lesion 1: 5 Lesion 2: 5 Diffusion weighted imaging (DWI) morphology score: Lesion 1: 5. Concern for small focus of extraprostatic extension measuring, (6/7). Lesion 2: 5. This lesion may be confluent with the above right peripheral zone lesion. This lesion likely extends into the base of the prostate gland. Dynamic contrast enhancement (DCE): Lesion 1: Present Lesion 2: Present Lesion PI-RADS score: Lesion 1: PI-RADS 5. Lesion 2: PI-RADS 5. Genitourinary system: Bladder wall thickness is normal. Distal ureters are non distended. Bowel and peritoneum: No pathologic free pelvic fluid. A few colonic diverticuli. Inferior colon and small bowel loops are normal in caliber. Nodes and vessels: No pelvic or inguinal adenopathy by size criteria. Iliac vessels are normal in caliber. Infrarenal abdominal aortic aneurysm partially visualized. Soft tissues: No inguinal hernias. Enhancing focus adjacent to the left hip, (34/99). In retrospect there is thickening in this region on the CT 12/31/2020. This could be due to bursitis or other infectious/inflammatory etiology. Less likely metastasis. Bones: No focal lesion identified. IMPRESSION: 1. Extensive PIRADS 5 lesion or lesions involving the right prostate gland peripheral zone and transitional zone. Concern for small focus of extraprostatic extension involving the right mid gland. 2. No enlarged lymph nodes identified. 3. Aortic aneurysm partially visualized. 4. A small enhancing focus adjacent to the left hip. This could be due to bursitis or prior injury. Less likely metastasis. This appears to be present in retrospect on CT from a December 2020. Dictated by: Cricket Clemons M.D. on 05/07/2021 at 11:00 Approved by: Cricket Clemons M.D. on 05/07/2021 at 11:45
== END ==
PROVIDERS: PCP Family Medicine; Referring Provider Specialist; Visit Provider Specialist
DX: D40.0 Neoplasm of uncertain behavior of prostate (principal); N40.3 Nodular prostate with lower urinary tract symptoms; R31.9 Hematuria, unspecified; I71.4 Abdominal aortic aneurysm, without rupture
CPT/HCPCS: 72197; A9579

== ENCOUNTER → 2021-07-10 10:31 | Outpatient (CLI) | payer OTHER, SELFPAY ==
[2021-02-14 11:37] VITALS: BMI 25.7
--- NOTE | 2021-07-10 10:31 | DI.NM.S_ITS ---
PROCEDURE: NM BONE SCAN WHOLE BODY RADIOPHARMACEUTICAL: 19.5 mCi Tc-99m MDP IV. INDICATIONS: screening for metastasis TECHNIQUE: Delayed whole-body scintigrams were obtained approximately 3-4 hours after intravenous injection of radiotracer. Anterior and posterior views were acquired from vertex to feet. Additional left and right oblique views of the skull and cervical spine were obtained. COMPARISON: [facility], MR, MR CERVICAL SPINE WO/W CON, 02/28/2020, 11:26. [facility], MR, MR PELVIS WO/W CON, 05/03/2021, 16:43. [facility], CT, CT ABDOMEN PELVIS WO/W CON, 12/31/2020, 10:24. FINDINGS: Small focus of increased uptake in the inferior right orbit. Increased uptake in maxilla and mandible, most likely related to dental disease. No lesions are identified in skull, sternum, clavicles, scapulae, ribs, bony pelvis, and visualized shafts of the long bones. There is low level increased uptake in cervical, thoracic and lumbar spine with distribution indistinguishable from degenerative disc and facet disease; early metastasis to spine could be obscured by degenerative changes. There are foci of increased periarticular activity involving shoulders, sternoclavicular joints, wrists, hands, hips, SI joints, knees, ankles and feet, compatible with degenerative/arthritic changes. IMPRESSION: 1. Focal increased in the right inferior orbit. Indeterminate in nature. Recommend radiographic correlation. 2. Multiple foci of increased uptake in cervical, thoracic and lumbar spine, most likely degenerative in nature. Recommend radiographic correlation if clinically indicated. 3. Increased uptake in maxilla and mandible, most likely related to dental disease. 4. Degenerative/arthritic changes in multiple peripheral joints. Dictated by: Ray Saunders M.D. on 07/10/2021 at 16:56 Approved by: Ray Saunders M.D. on 07/10/2021 at 17:01
== END ==
PROVIDERS: PCP Family Medicine; Referring Provider Family Medicine; Visit Provider Family Medicine
DX: D40.0 Neoplasm of uncertain behavior of prostate (principal)
CPT/HCPCS: 78306; A9503

== ENCOUNTER → 2021-10-03 08:43 | Outpatient (CLI) | payer OTHER, SELFPAY ==
[2021-07-25 09:01] VITALS: BMI 25.7
--- NOTE | 2021-10-03 | DI.ECHO.S_ITS ---
[facility] +---------+ : : [address] [place] : : : : [id number] : : : : Phone: [phone]+ Echocardiogram Report + + :Name: CIRO ALIZA LUKE Study Date: 10/03/2021 Height: 71.5 in: :[facility] ReadingLocation: Weight: 210 lb : : Gender: Male BSA: 2.2 m2 : :: 1940 Age: 81 yrs : :Reason For Study: Murmur : :Ordering Physician: : :NANCY Performed By: Ramone Del Toro : :Referring: ALIZA HOLDER : + + Interpretation Summary Left ventricular systolic function appears normal with an estimated ejection fraction of 60 to 65% without any focal wall motion abnormality. There is borderline concentric LVH with normal left ventricular size. Diastolic function is challenging to assess because of contradictory data although there may be a diastolic relaxation abnormality. The right ventricle is mild to moderately enlarged but with normal systolic function. Right ventricular systolic pressure is estimated at 33 mmHg with a CVP of 3 mmHg. Both atria are normal in size. There is significant mitral annular calcification extending into the subvalvular apparatus but there is no significant mitral stenosis or regurgitation. There is moderate calcific sclerosis of the aortic valve and a bicuspid aortic valve cannot be excluded. There is likely minimal aortic stenosis that is not hemodynamically significant. There is mild aortic regurgitation. There is mild tricuspid regurgitation. The ascending aorta is borderline enlarged at 3.6 cm. Procedure: A two-dimensional transthoracic echocardiogram with color flow and Doppler was performed. The study quality was technically adequate. Images from the parasternal window were difficult to obtain and are suboptimal in quality. There is no prior echocardiogram noted for this patient. The patient was in normal sinus rhythm during the exam. EKG difficult to aquire due to chest hair. Left Ventricle: The left ventricle is normal in size. Left ventricular wall thickness is at the upper limits of normal. There is borderline proximal septal thickening noted. Left ventricular systolic function appears normal without focal wall motion abnormalities. The ejection fraction is estimated to be 60-65%. Diastolic function could not be accurately assessed due to contradictory data. Diastolic parameters suggest a relaxation abnormality of the left ventricle, consistent with probable normal filling pressures. Right Ventricle: The right ventricle is mild to moderately dilated. The right ventricular systolic function is normal. Atria: Both atria are normal in size. Right atrial volume index is 21 mL/mA?. There is no Doppler evidence for an interatrial shunt. Mitral Valve: There is moderate mitral annular calcification. There is mild calcification extending into the subvalvular apparatus. There is no mitral valve stenosis. There is trace mitral regurgitation. Aortic Valve: The aortic valve is not well visualized. A bicuspid aortic valve cannot be excluded. The aortic valve is moderately calcified. The aortic valve opens well. There is mildly reduced leaflet mobility. There is no hemodynamically significant valvular aortic stenosis. There is mild aortic regurgitation. Tricuspid Valve: The tricuspid valve is normal. There is mild tricuspid regurgitation. The right ventricular systolic pressure is estimated to be at least 33 mmHg based on an estimated right atrial pressure of 3 mm Hg. Pulmonic Valve: The pulmonic valve leaflets are thin and pliable; valve motion is normal. There is a trace or physiologic amount of pulmonic regurgitation. Great Vessels: The aortic root is normal size. The ascending aorta is at the upper limits of normal in size. The aortic arch is normal in size. The IVC is of normal diameter and collapses greater than 50% with a sniff. This suggests a low right atrial pressure of 3 mm Hg. Pericardium/ Pleura There is no pericardial effusion. There is an anterior echo-free space consistent with a fat pad. There is no pleural effusion. MMode/2D Measurements & Calculations LVIDd: 3.8 cm LVOT diam: 2.0 cm LVIDs: 2.9 cm Ao root diam: 2.9 cm FS: 23.7 % asc Aorta Diam: 3.6 cm IVSd: 1.0 cm Ao Arch Diam (Prox Trans): 2.1 cm LVPWd: 1.2 cm LV albarran. diameter/BSA (cm/m^2): 1.8 LV sys. diameter/BSA (cm/m^2): 1.3 LA A2 area: 14.8 cm2 RA long axis: 5.7 cm LA A4 area: 12.6 cm2 LA length (vol): 4.5 cm LA vol: 35.2 ml LA vol index: 16.2 ml/m2 LVLs ap4: 6.8 cm LVLd ap2: 7.5 cm LVLs ap2: 5.6 cm TAPSE_phl: 2.6 cm Doppler Measurements & Calculations Ao V2 max: 182.0 cm/sec LVOT Max Moe: 88.6 cm/sec Ao V2 mean: 135.0 cm/sec LV V1 max P.1 mmHg Ao max P.0 mmHg LV V1 VTI: 18.3 cm Ao mean P.0 mmHg BIBIANA(I,D): 1.4 cm2 Ao V2 VTI: 40.3 cm BIBIANA(V,D): 1.5 cm2 sev ratio: 0.45 BIBIANA indexed to BSA (cm^2/m^2): 0.66 MV E max moe: 97.4 cm/sec TR max moe: 275.5 cm/sec MV A max moe: 138.0 cm/sec TR max P.4 mmHg MV E/A: 0.71 PA V2 max: 106.0 cm/sec Med Peak E' Moe: 6.6 cm/sec PA V2 mean: 75.9 cm/sec E/E' med: 14.8 PA mean P.0 mmHg Lat Peak E' Moe: 4.5 cm/sec PA pr(Accel): 11.0 mmHg E/E' lat: 21.9 E/e' average: 18.3 MV dec time: 0.27 sec SV(LVOT): 57.5 ml AV VR_phl: 0.49 BIBIANA(VTI)/BSA_phl: 0.66 MV P1/2t-pr_phl: 78.0 msec Reading Physician:11:47 AM
== END ==
PROVIDERS: PCP Family Medicine; Referring Provider Internal Medicine Cardiovascular Disease; Visit Provider Internal Medicine Cardiovascular Disease
DX: I08.2 Rheumatic disorders of both aortic and tricuspid valves (principal); R01.1 Cardiac murmur, unspecified; D40.0 Neoplasm of uncertain behavior of prostate
CPT/HCPCS: 93306

== ENCOUNTER → 2022-02-05 09:00 | Outpatient (CLI) | payer OTHER, SELFPAY ==
[2021-07-25 09:01] VITALS: BMI 25.7
[2022-02-05 10:38] LABS: Cholesterol 147 mg/dL (140-199); HDL Cholesterol 31 mg/dL (40-60); LDL Cholesterol Calculated 68 mg/dL (<100); Triglycerides 238 mg/dL (35-150)
[2022-02-05 11:02] LABS: Vitamin D 25 Hydroxy (D3) 34.1 ng/mL (30.0-100.0)
[2022-02-05 11:31] LABS: Vitamin B12 393 pg/mL (239-931)
== END ==
PROVIDERS: PCP Family Medicine; Referring Provider Family Medicine; Visit Provider Family Medicine
DX: E78.2 Mixed hyperlipidemia (principal); G61.82 Multifocal motor neuropathy; I10 Essential (primary) hypertension; C61 Malignant neoplasm of prostate
CPT/HCPCS: 36415; 80061; 82306; 82607

== ENCOUNTER → 2022-05-04 10:28 | Outpatient (CLI) | payer OTHER, SELFPAY ==
[2021-07-25 09:01] VITALS: BMI 25.7
--- NOTE | 2022-05-04 10:29 | DI.MRI.S_ITS ---
PROCEDURE: MR LUMBAR SPINE WO CON INDICATIONS: lbp pain cladication possible spinal stenosis TECHNIQUE: Noncontrast sagittal T1 spin echo and T2 fast echo, sagittal STIR, and T2 fast spin echo through the lumbar spine. In cases with scoliosis, additional coronal T2 fast spin echo may be performed. COMPARISON: None. FINDINGS: Image quality: Excellent. Alignment and Curvature: There is grade 1 L4 on L5 anterolisthesis. There is otherwise normal bony alignment. Bone Marrow: Marrow is of normal overall signal. No acute vertebral body compression fractures. Spinal Cord: Conus medullaris terminates at the L1 level. Visualized cord demonstrates normal signal and size. Paraspinous Soft Tissues: No paravertebral masses. A probable cystic lesion is visualized within the midpole of the left kidney which is incompletely characterized on this limited view. T12-L1: Mild disc desiccation and height loss. Right lateral posterior disc bulge with narrowing of the right lateral recess. Mild facet sclerosis. No canal stenosis. No neural foraminal narrowing. L1-L2: Mild disc desiccation and height loss. Broad-based disc bulge. Moderate facet ligamentum flavum hypertrophy. No canal stenosis. Moderate right neural foraminal narrowing with flattening of the exiting nerve root. L2-L3: Severe disc desiccation and height loss. There is a right paracentral disc protrusion which measures 0.8 x 1.8 x 0.7 cm. There is resultant severe canal stenosis. Severe facet and ligamentum flavum hypertrophy is present. There is moderate bilateral neural foraminal stenosis. L3-L4: Severe disc desiccation and height loss. Broad-based posterior disc bulge. Mild canal stenosis. Moderate facet ligamentum flavum hypertrophy. Moderate right foraminal stenosis with flattening of the exiting nerve root. Mild left foraminal stenosis. L4-L5: Grade 1 anterolisthesis. Moderate disc desiccation and height loss. Severe facet ligamentum flavum hypertrophy. Narrowing of the bilateral lateral recesses. No canal stenosis. Moderate bilateral neural foraminal stenosis. L5-S1: Moderate disc desiccation and height loss. Mild facet sclerosis. No canal stenosis. No neural foraminal stenosis. There is a posterior focal high-intensity zone. IMPRESSION: 1. Multilevel disc desiccation and height loss most severe at L2-3 and L3-4. 2. Multilevel posterior disc bulges and right paracentral disc protrusion at L2-3 with resultant severe canal stenosis. 3. Moderate right neural foraminal stenosis at L1-2 and L3-4, and moderate bilateral foraminal stenosis at L4-5 and L2-3. There is flattening of the right exiting nerve root at L3-4. 4. 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 Dictated by: Jana Beltrán M.D. on 05/06/2022 at 10:22 Approved by: Jana Beltrán M.D. on 05/06/2022 at 10:40
== END ==
PROVIDERS: Family Provider Family Medicine; PCP Family Medicine; Referring Provider Family Medicine; Visit Provider Family Medicine
DX: I73.9 Peripheral vascular disease, unspecified (principal); G89.29 Other chronic pain; M51.86 Other intervertebral disc disorders, lumbar region; M51.26 Other intervertebral disc displacement, lumbar region; M48.061 Spinal stenosis, lumbar region without neurogenic claudication; M51.37 Other intervertebral disc degeneration, lumbosacral region
CPT/HCPCS: 72148

== ENCOUNTER 2022-06-23 09:45 | Outpatient (RCR) | payer OTHER, SELFPAY ==
[2021-07-25 09:01] VITALS: BMI 25.7
--- NOTE | 2022-03-06 17:09 | PT.OPPOC ---
Physical, Occupational & Speech Therapy At [facility] Current Diagnoses Other abnormalities of gait and mobility (03/06/22) Weakness (03/06/22) Visit Care Team Role Provider Type Socrates Tee MD Attending Provider Physician Family Provider Primary Care Provider Referring Provider Specialty: Family Practice Address: [address] [place] [address], [id number] Email: [email or web address] Plan Of Care PT-OP-T Assessment and Plan Start: 03/06/22 12:42 Freq: Status: Active Protocol: Document 03/06/22 13:50 LRN (Rec: 03/06/22 18:58 LRN [id number]) Physical Therapy Assessment Rehab Potential Rehabilitation Potential Good Evaluation Complexity Number of Personal Factors/Comorbidities 1-2 Number of Body Systems Impaired 4 or More Clinical Presentation at Evaluation Evolving Impairments Impairments Activity Tolerance,Balance, Functional Activities, Functional Mobility,Pain, Posture,ROM,Sensation,Soft Tissue Mobility,Strength Goals Four Impairment Decreased balance placing pt at risk of falling Impairment Dizziness Questionnaire is 26 (20-39% impaired, score 20-39) JOY balance is 45 (1-19% impaired, 45-55) SLS is 7 secs R, 6 secs L. Tandem stance is: R foot behind 28 secs, L foot behind 4 secs. Short Term Goal (STG) Pt will demonstrate improved SLS or tandem stance to improve balance and pt risk of falling. STG Duration 04/22/22 Greenhouse Grower Goal (LTG) Improve balance per JOY score to no less than 50. LTG Duration 06/04/22 Three Impairment Decreased endurance Impairment Pt [place] without having to stop at least once due to pain in the hips and lower leg/ feet. Greenhouse Grower Goal (LTG) Improve pt endurance with pt able to [place] without having to stop due to limiting pain in the hips, lower legs or feet. LTG Duration 06/04/22 Two Impairment Decreased functional mobility Impairment Pt has difficulty kneeling and getting back up at quaker. ABC scale is 75 (20<20% impaired, 61-80) Short Term Goal (STG) Improve LE mobility with pt able to kneel and stand at quaker with greater ease and improved posture. STG Duration 04/22/22 Prison Goal (LTG) Pt will improve function per ABC score of 81 or greater (1< 20% impaired). LTG Duration 06/04/22 One Impairment Lacks appropriate self care HEP Short Term Goal (STG) Pt will be independent with a HEP of strengthening and endurance exercise. STG Duration 03/19/22 Prison Goal (LTG) Pt will be independent with a HEP of balance and LE mobility ex's. LTG Duration 04/22/22 Assessment Summary Assessment Pt presents with decreased hip /ankle strength and LE mobility, especially at the ankles that hinders his functional mobility (kneeling, walking). His primary complaint is poor endurance because of complaints of burning pain in his hips, ankles and [place] but may also be contributed to decreased LE mobility. He demonstrates decreased standing balance per JOY assessment with most notable decrease in SLS and tandem stance, increasing his risk of falling with gait. The pt will benefit from skilled physical therapy to initially place the pt on a HEP that his spouse (who is a retired physical therapist) can assist him with, then we can focus on endurance, mobility, and balance exercises in clinic; working towards achieving the above stated goals. Physical Therapy Plan Frequency and Duration Frequency of Treatment 2x/Week Plan of Care Start Date 03/06/22 Plan of Care End Date 06/04/22 Therapeutic Interventions Therapeutic Interventions Aquatic Therapy,Balance Training,Gait Training,Home Exercise Program,Joint Mobilizations,Manual Therapy, Neuromuscular Re-education, Patient/Caregiver Education, Self-Care/Home Management,Soft Tissue Mobilization, Therapeutic Activities, Therapeutic Exercises Modalities Cold Pack/Ice Massage,Hot Packs Next Visit Focus/Plan Next Note Type Treatment Note Next Visit Plan Assess TUG, 30 sit to stand, 6' walk test (and assessing gait dysfunction), hip/knee/ ankle ROM, DGI or FGA if impairement noted during 6' walk test. Assess sensation in feet and palpate for areas of burning pain with gait HEP of hip, ankle strengthening/mobility/ endurance ex (sit<>stands). Balance training. Pt education will be focused home exercises including balance exercises. Plan of Care Dates Plan of Care Start Date 03/06/22 Plan of Care End Date 06/04/22 Electronically Signed by: Jana Cornelius, PT 03/07/22 1710 If you are in agreement with this Plan of Care, please return a signed and dated copy. I have reviewed this Plan of Care and certify that the skilled therapy services above are required to meet the patient?s needs. Physician Signature Date Printed Name and Credentials Clinical Instructor Signature Printed Name and Credentials
--- NOTE | 2022-03-06 17:09 | PT.OIE ---
Current Diagnoses Other abnormalities of gait and mobility (03/06/22) Weakness (03/06/22) Past Medical History (Last Updated 04/24/21 @ 17:48 by Ilya Hill MD) Allergies Ankle pain Arthritis Chicken pox Coronary artery disease with history of coronary revascularization Erectile dysfunction associated with vasculopathy Factor V Leiden Family history of prostate cancer in father Foot pain Fractures Glaucoma H/O hernia repair H/O vasectomy Hearing deficit Hearing loss Hematuria Hemorrhoid Herpes History of appendectomy History of coronary artery stent placement History of eye surgery (~2007) Hyperlipidemia Hypertension (~1949) Measles Mumps Neoplasm of uncertain behavior of prostate Neurological disease 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 Peripheral neuropathy (~2007) PVD (peripheral vascular disease) Seasonal allergies Shoulder pain Skin cancer Sleep apnea Vision disorder Past Surgical History (Last Reviewed 04/24/21 @ 17:45 by Ilya Hill MD) Anesthesia H/O hernia repair H/O vasectomy History of appendectomy History of coronary artery stent placement History of eye surgery (~2007) History of tonsillectomy (~1962) Status post appendectomy (~1994) Status post knee surgery (~1967) Visit Care Team Role Provider Type Socrates Tee MD Attending Provider Physician Family Provider Primary Care Provider Referring Provider Specialty: Family Practice Address: [address] [place] [address] Email: [email or web address] Physical Therapy Initial Evaluation PT-OP-A Visit Information Start: 03/06/22 12:42 Freq: Status: Active Protocol: Document 03/06/22 13:50 LRN (Rec: 03/06/22 18:58 LRN [id number]) Out-Patient Physical Therapy Visit Information Visit Information Visit Type Initial Evaluation Visit Start Time 13:50 Visit Stop Time 14:39 Total Visit Minutes 49 Visit Number 1 Evaluation Information Evaluation Date 03/06/22 Precautions Precautions Pt reports: Completed radiation treatment to prostate on 01/07/22, Blackouts over several years with last one 1.5 yrs ago, mini-stroke, L fx'd hip 2 yrs ago, 8 stents : 3 in neck and 5 in heart ( descending aorta) 4 yrs ago. 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 Intake form: Arterial disease , controlled HBP, arthritis, neuropathy of feet and hands, PT-OP-B Current Condition Start: 03/06/22 12:42 Freq: Status: Active Protocol: Document 03/06/22 13:50 LRN (Rec: 03/06/22 18:58 LRN [id number]) Current Condition History of Current Condition Onset Date 01/07/22 Current Complaints Weakness of legs from radiation treatments & Lupron injections History of Current Condition Walks 3 blocks [place] and can only go 1 block the ankles and hips start to burn and must stop to wait. Pt spouse (Radha) who is a PT thinks it may be from arteries . Has done [facility] rehab 3 yrs ago without pain in the legs with exercise. Since receiving Lupron injections ( to reduce testosterone) and radiation treatments he has had weakness in his legs and fatigue. Developmental History Developmental History Completed radiation treatment to prostate on 01/07/22. 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 Treatment Goals Patient/Caregiver Goals Pt goal is to measure strength and build it up again. Prior Functional Status Baseline Function- ADL's Independent Baseline Function- Mobility Independent Baseline Function- Gait Walked home with hips/ankles heating up and 3-4 stops/3 bks to walk home Current Functional Impairments (Reported) Functional Limitations- ADL's Weakness in ability to get medicine or pepsi bottle caps off. Able to do yardwork only 10-15 ' due to fatigue. Transfers sit<>stand causes heavy breathing sometimes. Neuropathy and electric shocks happens randomly mostly in the evening, several times a week. Functional Limitations- Mobility/Gait L>R Hips/ankles burn walking home with hips/ankles heating up and 1-2 stops/3 bks to walk home. 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 PT-OP-C Subjective Start: 03/06/22 12:42 Freq: Status: Active Protocol: Document 03/06/22 13:50 LRN (Rec: 03/06/22 18:58 [facility] [id number]) OP-PT Subjective Patient Comments Patient Comments Pt requests talking to spouse for further information due to his decreased memory. Patient Questionnaires ABC- Activity Specific Balance Confidence Scale ABC Score 75 ABC Functional Impairment 20 to <40% Impaired (Score 61- 80) Dizziness Handicap Inventory DHI Score 26 DHI Functional Impairment 20 to 39% Impaired (Score 20- 39) OP-PT Pain Assessment Location L hip and anterior knees Pain Location Details L Lateral hip and bilateral anterior knees Intensity 2 Scale Used Numeric (0 - 10) Description Burning Description- Other Pain with walking Frequency Intermittent Pain Aggravating Factors Walking PT-OP-D Balance Start: 03/06/22 12:42 Freq: Status: Active Protocol: Document 03/06/22 13:50 LRN (Rec: 03/06/22 18:58 [facility] [id number]) OP-PT Balance Assessment Sitting Balance Static Sitting Balance Ability Normal Dynamic Sitting Balance Ability Normal Standing Balance Static Standing Balance Ability Normal Balance Tests Joy Balance Test Joy Balance Test Score 45 Joy Impairment Rating 1 to 19% Impaired (Score 45-55 ) Functional Reach Functional Reach Test 14 Single Limb Standing Single Limb- Right 7 Single Limb- Left 6 Semi-Tandem Standing Semi-Tandem Standing Balance Tandem stance is: R foot behind 28 secs, L foot behind 4 secs. Joy Balance Assessment Evaluation Sitting to Standing Ability Independent w/out Hands Unsupported Stance Safely- 2 minutes Sitting Unsupported, Feet on Floor Safely- 2 minutes Standing to Sitting Ability Safely, Minimal Hand Use Unsupported Stance- Eyes Closed Supervision, 10 seconds Unsupported Stance- Eyes Open Independent, 1 minute Reaching Forward Standing Confidently, 10 inches Pick- Up Object From Floor Independent/Safe Look Behind Shoulder - Standing Turns Sideways Only Turning 360 Degrees Turns Bilateral, < 4 secs Unsupported Stance, Alternating Feet on (I)- 8 Steps in 20 secs Stair Unsupported Tandem Stance Assist to Step-15 seconds Unilateral Leg Stance Lifts Leg/Holds 5-10 secs Total Score Joy Total Score (out of 56 points) 45 Joy Impairment Rating 1 to 19% Impaired (Score 45-55 ) Islas Fall Scale Copyright Permission PT-OP-E Functional Tests Start: 03/06/22 12:42 Freq: Status: Active Protocol: Document 03/06/22 13:50 LRN (Rec: 03/06/22 18:58 LRN [id number]) Functional Tests Five Times Sit to Stand Test Score 15 Comments Norm for ages 80-89 is 14.8 secs PT-OP-G Mobility & Gait Start: 03/06/22 12:42 Freq: Status: Active Protocol: Document 03/06/22 13:50 LRN (Rec: 03/06/22 18:58 LRN [id number]) OP Gait Assessment Gait Gait Assistance Required: Independent Assistive Devices Assistive Device None PT-OP-J Posture/Palpation/Skin Start: 03/06/22 12:42 Freq: Status: Active Protocol: Document 03/06/22 13:50 LRN (Rec: 03/06/22 18:58 LRN [id number]) Posture Evaluation Position Standing Head/C-Spine Posture Forward Head L-Spine Posture Decreased Lordosis Hip Posture (L) Externally Rotated,(R) Externally Rotated Comments Posture Comments Decreased thoracic curvature, mild anterior tilt of pelvis. PT-OP-K Range of Motion Start: 03/06/22 12:42 Freq: Status: Active Protocol: Document 03/06/22 13:50 LRN (Rec: 03/06/22 18:58 LRN [id number]) Ankle and Foot Goniometric Range of Motion Ankle and Foot Right Active Testing Position Supine Dorsiflexion with Knee Extended 5 Inversion 5 Comments Ankle AROM is approximated. Left Active Testing Position Supine Dorsiflexion with Knee Extended 7 Inversion 7 Comments Ankle AROM is approximated. PT-OP-M Strength Start: 03/06/22 12:42 Freq: Status: Active Protocol: Document 03/06/22 13:50 LRN (Rec: 03/06/22 18:58 LRN [id number]) Trunk Strength Trunk Manual Muscle Testing Core Stabilization Pt had difficulty maintaining a stable core during hip MMT. Comments Generally 5/5 Hip Strength Hip Manual Muscle Testing Right Flexion (L2) 4 Good Extension (S1) 3 Fair Adduction 4- Good- External Rotation 5 Normal Internal Rotation 5 Normal Left Flexion (L2) 4+ Good+ Abduction 3 Fair Adduction 4- Good- External Rotation 3+ Fair+ Internal Rotation 5 Normal Knee Strength Knee Manual Muscle Testing Right Flexion (S2) 5 Normal Extension (L3) 5 Normal Left Flexion (S2) 5 Normal Extension (L3) 5 Normal Ankle/Foot Strength Ankle and Foot Manual Muscle Testing Right Dorsiflexion (L4) 4+ Good+ Inversion 5 Normal Eversion (S1) 5 Normal Comments Strength is normal within available limited range. Left Dorsiflexion (L4) 4+ Good+ Inversion 5 Normal Eversion (S1) 5 Normal Comments Strength is normal within available limited range. PT-OP-Q Treatments Start: 03/06/22 12:42 Freq: Status: Active Protocol: Document 03/06/22 13:50 LRN (Rec: 03/06/22 18:58 LRN [id number]) Self-Care/Home Management Treatment Education Caregiver Education Spoke to , Radha, per telephone at pt request. Radha states pt has difficulty kneeling in buddhist, [place] [employer] ( [place]) due to burning in his feet, lower leg and hips (was told it is not due to arthrosclerosis because his blood flow was good). His neuropathy hinders his balance . Requested spouse attend 1- 3 visits to assist pt with his HEP. Other Education Discussed results of evaluation, goals, and plan of care (POC). Pt agreeable to endurance and strengthen goals , and POC. Spoke with spouse at pt request for further information and added goal of mobility due to reported difficulty of pt kneeling at buddhist. PT-OP-T Assessment and Plan Start: 03/06/22 12:42 Freq: Status: Active Protocol: Document 03/06/22 13:50 LRN (Rec: 03/06/22 18:58 N [id number]) Physical Therapy Assessment Rehab Potential Rehabilitation Potential Good Evaluation Complexity Number of Personal Factors/Comorbidities 1-2 Number of Body Systems Impaired 4 or More Clinical Presentation at Evaluation Evolving Impairments Impairments Activity Tolerance,Balance, Functional Activities, Functional Mobility,Pain, Posture,ROM,Sensation,Soft Tissue Mobility,Strength Goals Four Impairment Decreased balance placing pt at risk of falling Impairment Dizziness Questionnaire is 26 (20-39% impaired, score 20-39) JOY balance is 45 (1-19% impaired, 45-55) SLS is 7 secs R, 6 secs L. Tandem stance is: R foot behind 28 secs, L foot behind 4 secs. Short Term Goal (STG) Pt will demonstrate improved SLS or tandem stance to improve balance and pt risk of falling. STG Duration 04/22/22 Client Development Consultant Goal (LTG) Improve balance per JOY score to no less than 50. LTG Duration 06/04/22 Three Impairment Decreased endurance Impairment [place] having to stop at least once due to pain in the hips and lower leg/ feet. Client Development Consultant Goal (LTG) Improve pt endurance with pt able [place] without having to stop due to limiting pain in the hips, lower legs or feet. LTG Duration 06/04/22 Two Impairment Decreased functional mobility Impairment Pt has difficulty kneeling and getting back up at buddhist. ABC scale is 75 (20<20% impaired, 61-80) Short Term Goal (STG) Improve LE mobility with pt able to kneel and stand at buddhist with greater ease and improved posture. STG Duration 04/22/22 [facility] Goal (LTG) Pt will improve function per ABC score of 81 or greater (1< 20% impaired). LTG Duration 06/04/22 One Impairment Lacks appropriate self care HEP Short Term Goal (STG) Pt will be independent with a HEP of strengthening and endurance exercise. STG Duration 03/19/22 Client Development Consultant Goal (LTG) Pt will be independent with a HEP of balance and LE mobility ex's. LTG Duration 04/22/22 Assessment Summary Assessment Pt presents with decreased hip /ankle strength and LE mobility, especially at the ankles that hinders his functional mobility (kneeling, walking). His primary complaint is poor endurance because of complaints of burning pain in his hips, ankles and [place] but may also be contributed to decreased LE mobility. He demonstrates decreased standing balance per JOY assessment with most notable decrease in SLS and tandem stance, increasing his risk of falling with gait. The pt will benefit from skilled physical therapy to initially place the pt on a HEP that his spouse (who is a retired physical therapist) can assist him with, then we can focus on endurance, mobility, and balance exercises in clinic; working towards achieving the above stated goals. Physical Therapy Plan Frequency and Duration Frequency of Treatment 2x/Week Plan of Care Start Date 03/06/22 Plan of Care End Date 06/04/22 Therapeutic Interventions Therapeutic Interventions Aquatic Therapy,Balance Training,Gait Training,Home Exercise Program,Joint Mobilizations,Manual Therapy, Neuromuscular Re-education, Patient/Caregiver Education, Self-Care/Home Management,Soft Tissue Mobilization, Therapeutic Activities, Therapeutic Exercises Modalities Cold Pack/Ice Massage,Hot Packs Next Visit Focus/Plan Next Note Type Treatment Note Next Visit Plan Assess TUG, 30 sit to stand, 6' walk test (and assessing gait dysfunction), hip/knee/ ankle ROM, DGI or FGA if impairement noted during 6' walk test. Assess sensation in feet and palpate for areas of burning pain with gait HEP of hip, ankle strengthening/mobility/ endurance ex (sit<>stands). Balance training. Pt education will be focused home exercises including balance exercises.
--- NOTE | 2022-03-10 16:51 | PT.OTN ---
Current Diagnoses Other abnormalities of gait and mobility (03/10/22) Weakness (03/10/22) Physical Therapy Treatment Note PT-OP-A Visit Information Start: 03/06/22 12:42 Freq: Status: Active Protocol: Document 03/10/22 14:33 LRN (Rec: 03/10/22 15:20 LRN [id number]) Out-Patient Physical Therapy Visit Information Visit Information Visit Type Treatment Note Visit Start Time 14:33 Visit Stop Time 15:19 Total Visit Minutes 46 Visit Number 2 Evaluation Information Evaluation Date 03/06/22 Precautions Precautions Pt reports: Completed radiation treatment to prostate on 01/07/22, Blackouts over several years with last one 1.5 yrs ago, mini-stroke, L fx'd hip 2 yrs ago, 8 stents : 3 in neck and 5 in heart ( descending aorta) 4 yrs ago. 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 Intake form: Arterial disease , controlled HBP, arthritis, neuropathy of feet and hands, PT-OP-B Current Condition Start: 03/06/22 12:42 Freq: Status: Active Protocol: Document 03/06/22 13:50 LRN (Rec: 03/06/22 18:58 LRN [id number]) Current Condition History of Current Condition Onset Date 01/07/22 Current Complaints Weakness of legs from radiation treatments & Lupron injections History of Current Condition [place] go 1 block the ankles and hips start to burn and must stop to wait. Pt spouse (Radha) who is a PT thinks it may be from arteries . Has done [facility] rehab 3 yrs ago without pain in the legs with exercise. Since receiving Lupron injections ( to reduce testosterone) and radiation treatments he has had weakness in his legs and fatigue. Developmental History Developmental History Completed radiation treatment to prostate on 01/07/22. 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 Treatment Goals Patient/Caregiver Goals Pt goal is to measure strength and build it up again. Prior Functional Status Baseline Function- ADL's Independent Baseline Function- Mobility Independent Baseline Function- Gait Walked home with hips/ankles heating up and 3-4 stops/3 bks to walk home Current Functional Impairments (Reported) Functional Limitations- ADL's Weakness in ability to get medicine or pepsi bottle caps off. Able to do yardwork only 10-15 ' due to fatigue. Transfers sit<>stand causes heavy breathing sometimes. Neuropathy and electric shocks happens randomly mostly in the evening, several times a week. Functional Limitations- Mobility/Gait L>R Hips/ankles burn walking home with hips/ankles heating up and 1-2 stops/3 bks to walk home. 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 PT-OP-C Subjective Start: 03/06/22 12:42 Freq: Status: Active Protocol: Document 03/10/22 14:33 LRN (Rec: 03/10/22 15:20 LRN [id number]) OP-PT Subjective Patient Comments Patient Comments ............. Vascular test showed narrowing of arteries to the gluts. PT-OP-D Balance Start: 03/06/22 12:42 Freq: Status: Active Protocol: Document 03/06/22 13:50 LRN (Rec: 03/06/22 18:58 LRN [id number]) OP-PT Balance Assessment Sitting Balance Static Sitting Balance Ability Normal Dynamic Sitting Balance Ability Normal Standing Balance Static Standing Balance Ability Normal Balance Tests Joy Balance Test Joy Balance Test Score 45 Joy Impairment Rating 1 to 19% Impaired (Score 45-55 ) Functional Reach Functional Reach Test 14 Single Limb Standing Single Limb- Right 7 Single Limb- Left 6 Semi-Tandem Standing Semi-Tandem Standing Balance Tandem stance is: R foot behind 28 secs, L foot behind 4 secs. Joy Balance Assessment Evaluation Sitting to Standing Ability Independent w/out Hands Unsupported Stance Safely- 2 minutes Sitting Unsupported, Feet on Floor Safely- 2 minutes Standing to Sitting Ability Safely, Minimal Hand Use Unsupported Stance- Eyes Closed Supervision, 10 seconds Unsupported Stance- Eyes Open Independent, 1 minute Reaching Forward Standing Confidently, 10 inches Pick- Up Object From Floor Independent/Safe Look Behind Shoulder - Standing Turns Sideways Only Turning 360 Degrees Turns Bilateral, < 4 secs Unsupported Stance, Alternating Feet on (I)- 8 Steps in 20 secs Stair Unsupported Tandem Stance Assist to Step-15 seconds Unilateral Leg Stance Lifts Leg/Holds 5-10 secs Total Score Joy Total Score (out of 56 points) 45 Joy Impairment Rating 1 to 19% Impaired (Score 45-55 ) Islas Fall Scale Copyright Permission PT-OP-E Functional Tests Start: 03/06/22 12:42 Freq: Status: Active Protocol: Document 03/10/22 14:33 LRN (Rec: 03/10/22 16:39 LRN [id number]) Functional Tests 6 Minute Walk Test Distance 785 ft Device Used None Comments Wearing ruval[employer] Hokai tennis shoes 30 Second Sit to Stand Test Score 10X (Norm for 80-84 yo men is 10-15x) Comments Pt did not always stand straight & partially sat 3x. Wearing ruval[employer] Hokai Five Times Sit to Stand Test Score 15 secs (Norm for ages 80-89 is 14.8 secs). Timed Up and Go (TUG) Score 14 secs, 12 secs Comments First time pt did not walk complete 10 ft. Wearing ruvalc[employer] Hokai tennis shoes TUG Impairment Rating 20 to <40% Impaired (Score 12- 13) PT-OP-G Mobility & Gait Start: 03/06/22 12:42 Freq: Status: Active Protocol: Document 03/06/22 13:50 LRN (Rec: 03/06/22 18:58 [facility] [id number]) OP Gait Assessment Gait Gait Assistance Required: Independent Assistive Devices Assistive Device None PT-OP-J Posture/Palpation/Skin Start: 03/06/22 12:42 Freq: Status: Active Protocol: Document 03/06/22 13:50 LRN (Rec: 03/06/22 18:58 N [id number]) Posture Evaluation Position Standing Head/C-Spine Posture Forward Head L-Spine Posture Decreased Lordosis Hip Posture (L) Externally Rotated,(R) Externally Rotated Comments Posture Comments Decreased thoracic curvature, mild anterior tilt of pelvis. PT-OP-K Range of Motion Start: 03/06/22 12:42 Freq: Status: Active Protocol: Document 03/06/22 13:50 LRN (Rec: 03/06/22 18:58 [facility] [id number]) Ankle and Foot Goniometric Range of Motion Ankle and Foot Right Active Testing Position Supine Dorsiflexion with Knee Extended 5 Inversion 5 Comments Ankle AROM is approximated. Left Active Testing Position Supine Dorsiflexion with Knee Extended 7 Inversion 7 Comments Ankle AROM is approximated. PT-OP-M Strength Start: 03/06/22 12:42 Freq: Status: Active Protocol: Document 03/06/22 13:50 LRN (Rec: 03/06/22 18:58 LRN [id number]) Trunk Strength Trunk Manual Muscle Testing Core Stabilization Pt had difficulty maintaining a stable core during hip MMT. Comments Generally 5/5 Hip Strength Hip Manual Muscle Testing Right Flexion (L2) 4 Good Extension (S1) 3 Fair Adduction 4- Good- External Rotation 5 Normal Internal Rotation 5 Normal Left Flexion (L2) 4+ Good+ Abduction 3 Fair Adduction 4- Good- External Rotation 3+ Fair+ Internal Rotation 5 Normal Knee Strength Knee Manual Muscle Testing Right Flexion (S2) 5 Normal Extension (L3) 5 Normal Left Flexion (S2) 5 Normal Extension (L3) 5 Normal Ankle/Foot Strength Ankle and Foot Manual Muscle Testing Right Dorsiflexion (L4) 4+ Good+ Inversion 5 Normal Eversion (S1) 5 Normal Comments Strength is normal within available limited range. Left Dorsiflexion (L4) 4+ Good+ Inversion 5 Normal Eversion (S1) 5 Normal Comments Strength is normal within available limited range. PT-OP-Q Treatments Start: 03/06/22 12:42 Freq: Status: Active Protocol: Document 03/10/22 14:33 LRN (Rec: 03/10/22 15:20 LRN [id number]) Therapeutic Exercises Supine Exercises Hip Flexor stretch Supine Exercise Name Hip Flexor stretch f/b AROM hip ext Side bilateral Reps/Minutes 10' Comments Extra time to find max tolerated stretch and to cue hip ext 10' walk and back Supine Exercise Name TUG Reps/Minutes 14 & 12 secs Comments Without use of hands using webbed chair. Sitting Exercises Sit to stand Sitting Exercise Name 30 Sit to Stand Comments 10x. Pt did not always stand straight and partially sat 3x. Standing Exercises Hip Flexor stretch Standing Exercise Name Hip Flexor stretch Side left Soleus stretch Standing Exercise Name Soleus stretch Side bilateral Comments Extra time to teach keeping toes forward & to find max stretch Gastroc stretch Standing Exercise Name Gastroc stretch Side bilateral Reps/Minutes 1' each Comments Extra time to teach keeping toes forward & to find max stretch 6' Walk Standing Exercise Name 6' walk with 1 standing rest and 1 slowing down pace. Reps/Minutes 6' Comments 785 ft, 9 secs recover. Pt and onset of lower leg annoying pain, achy. Self-Care/Home Management Treatment Education Patient Education Home Exercise Program Activities Self-Care/Home Management Activities Issued & reviewed HEP: Gastroc, Soleus and hip flexor stretch. PT-OP-T Assessment and Plan Start: 03/06/22 12:42 Freq: Status: Active Protocol: Document 03/10/22 14:33 LRN (Rec: 03/10/22 15:20 LRN [id number]) Physical Therapy Assessment Goals Four Impairment Decreased balance placing pt at risk of falling Impairment Dizziness Questionnaire is 26 (20-39% impaired, score 20-39) JOY balance is 45 (1-19% impaired, 45-55) SLS is 7 secs R, 6 secs L. Tandem stance is: R foot behind 28 secs, L foot behind 4 secs. Short Term Goal (STG) Pt will demonstrate improved SLS or tandem stance to improve balance and pt risk of falling. STG Duration 04/22/22 [facility]iary Goal (LTG) Improve balance per JOY score to no less than 50. LTG Duration 06/04/22 Three Impairment Decreased endurance Impairment Pt not [place] without having to stop at least once due to pain in the hips and lower leg/ feet. [employer] Goal (LTG) Improve pt endurance with pt able to walk from [place] to home without having to stop due to limiting pain in the hips, lower legs or feet. LTG Duration 06/04/22 Two Impairment Decreased functional mobility Impairment Pt has difficulty kneeling and getting back up at mosque. ABC scale is 75 (20<20% impaired, 61-80) Short Term Goal (STG) Improve LE mobility with pt able to kneel and stand at mosque with greater ease and improved posture. STG Duration 04/22/22 [facility]iary Goal (LTG) Pt will improve function per ABC score of 81 or greater (1< 20% impaired). LTG Duration 06/04/22 One Impairment Lacks appropriate self care HEP Short Term Goal (STG) Pt will be independent with a HEP of strengthening and endurance exercise. STG Duration 03/19/22 [facility]iary Goal (LTG) Pt will be independent with a HEP of balance and LE mobility ex's. (03/10/22: HEP: Standing Gastroc/Soleus & supine Ilipsoas stretch) LTG Duration 04/22/22 (Progressed) Assessment Summary Assessment Spouse states pt is wearing most supportive shoes (tennis shoes - [employer] Hokai). TUG 12 secs. 10x sit to stand for 30 : Sit to Stand Test. Physical Therapy Plan Frequency and Duration Frequency of Treatment 2x/Week Plan of Care Start Date 03/06/22 Plan of Care End Date 06/04/22 Next Visit Focus/Plan Next Note Type Treatment Note Next Visit Plan Add HEP: hip ER, IR, flex, AB/ knee flex/ankle PF ROM, Assess DGI or FGA if impairment with gait noted ( assess for gait dysfunction), Add toe ext PROM & knee flex stretch & assess kneeling. Assess sensation in feet and palpate for areas of burning pain with gait HEP of hip, ankle strengthening/mobility/ endurance ex (sit<>stands). Balance training. Pt education will be focused home exercises including balance exercises.
--- NOTE | 2022-03-13 17:51 | PT.OTN ---
Current Diagnoses Other abnormalities of gait and mobility (03/13/22) Weakness (03/13/22) Physical Therapy Treatment Note PT-OP-A Visit Information Start: 03/06/22 12:42 Freq: Status: Active Protocol: Document 03/13/22 13:02 LRN (Rec: 03/13/22 13:52 LRN [id number]) Out-Patient Physical Therapy Visit Information Visit Information Visit Type Treatment Note Visit Start Time 13:02 Visit Stop Time 13:50 Total Visit Minutes 48 Visit Number 3 Evaluation Information Evaluation Date 03/06/22 Precautions Precautions Pt reports: Completed radiation treatment to prostate on 01/07/22, Blackouts over several years with last one 1.5 yrs ago, mini-stroke, L fx'd hip 2 yrs ago, 8 stents : 3 in neck and 5 in heart ( descending aorta) 4 yrs ago. 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 Intake form: Arterial disease , controlled HBP, arthritis, neuropathy of feet and hands, PT-OP-B Current Condition Start: 03/06/22 12:42 Freq: Status: Active Protocol: Document 03/06/22 13:50 LRN (Rec: 03/06/22 18:58 LRN [id number]) Current Condition History of Current Condition Onset Date 01/07/22 Current Complaints Weakness of legs from radiation treatments & Lupron injections History of Current Condition [place] go 1 block the ankles and hips start to burn and must stop to wait. Pt spouse (Radha) who is a PT thinks it may be from arteries . Has done [facility]hab 3 yrs ago without pain in the legs with exercise. Since receiving Lupron injections ( to reduce testosterone) and radiation treatments he has had weakness in his legs and fatigue. Developmental History Developmental History Completed radiation treatment to prostate on 01/07/22. 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 Treatment Goals Patient/Caregiver Goals Pt goal is to measure strength and build it up again. Prior Functional Status Baseline Function- ADL's Independent Baseline Function- Mobility Independent Baseline Function- Gait Walked home with hips/ankles heating up and 3-4 stops/3 bks to walk home Current Functional Impairments (Reported) Functional Limitations- ADL's Weakness in ability to get medicine or pepsi bottle caps off. Able to do yardwork only 10-15 ' due to fatigue. Transfers sit<>stand causes heavy breathing sometimes. Neuropathy and electric shocks happens randomly mostly in the evening, several times a week. Functional Limitations- Mobility/Gait L>R Hips/ankles burn walking home with hips/ankles heating up and 1-2 stops/3 bks to walk home. 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 PT-OP-C Subjective Start: 03/06/22 12:42 Freq: Status: Active Protocol: Document 03/13/22 13:02 LRN (Rec: 03/13/22 13:52 LRN [id number]) OP-PT Subjective Patient Comments Patient Comments Spouse states pt has lower leg and hip decreased blood flow. PT-OP-D Balance Start: 03/06/22 12:42 Freq: Status: Active Protocol: Document 03/06/22 13:50 LRN (Rec: 03/06/22 18:58 LRN [id number]) OP-PT Balance Assessment Sitting Balance Static Sitting Balance Ability Normal Dynamic Sitting Balance Ability Normal Standing Balance Static Standing Balance Ability Normal Balance Tests Joy Balance Test Joy Balance Test Score 45 Joy Impairment Rating 1 to 19% Impaired (Score 45-55 ) Functional Reach Functional Reach Test 14 Single Limb Standing Single Limb- Right 7 Single Limb- Left 6 Semi-Tandem Standing Semi-Tandem Standing Balance Tandem stance is: R foot behind 28 secs, L foot behind 4 secs. Joy Balance Assessment Evaluation Sitting to Standing Ability Independent w/out Hands Unsupported Stance Safely- 2 minutes Sitting Unsupported, Feet on Floor Safely- 2 minutes Standing to Sitting Ability Safely, Minimal Hand Use Unsupported Stance- Eyes Closed Supervision, 10 seconds Unsupported Stance- Eyes Open Independent, 1 minute Reaching Forward Standing Confidently, 10 inches Pick- Up Object From Floor Independent/Safe Look Behind Shoulder - Standing Turns Sideways Only Turning 360 Degrees Turns Bilateral, < 4 secs Unsupported Stance, Alternating Feet on (I)- 8 Steps in 20 secs Stair Unsupported Tandem Stance Assist to Step-15 seconds Unilateral Leg Stance Lifts Leg/Holds 5-10 secs Total Score Joy Total Score (out of 56 points) 45 Joy Impairment Rating 1 to 19% Impaired (Score 45-55 ) Islas Fall Scale Copyright Permission PT-OP-E Functional Tests Start: 03/06/22 12:42 Freq: Status: Active Protocol: Document 03/10/22 14:33 LRN (Rec: 03/10/22 16:39 LRN [id number]) Functional Tests 6 Minute Walk Test Distance 785 ft Device Used None Comments Wearing ruvalc[employer] Hokai tennis shoes 30 Second Sit to Stand Test Score 10X (Norm for 80-84 yo men is 10-15x) Comments Pt did not always stand straight & partially sat 3x. Wearing ru[employer] Hokai Five Times Sit to Stand Test Score 15 secs (Norm for ages 80-89 is 14.8 secs). Timed Up and Go (TUG) Score 14 secs, 12 secs Comments First time pt did not walk complete 10 ft. Wearing ruvalc[employer] Hokai tennis shoes TUG Impairment Rating 20 to <40% Impaired (Score 12- 13) PT-OP-G Mobility & Gait Start: 03/06/22 12:42 Freq: Status: Active Protocol: Document 03/06/22 13:50 LRN (Rec: 03/06/22 18:58 [facility] [id number]) OP Gait Assessment Gait Gait Assistance Required: Independent Assistive Devices Assistive Device None PT-OP-J Posture/Palpation/Skin Start: 03/06/22 12:42 Freq: Status: Active Protocol: Document 03/06/22 13:50 LRN (Rec: 03/06/22 18:58 [facility] [id number]) Posture Evaluation Position Standing Head/C-Spine Posture Forward Head L-Spine Posture Decreased Lordosis Hip Posture (L) Externally Rotated,(R) Externally Rotated Comments Posture Comments Decreased thoracic curvature, mild anterior tilt of pelvis. PT-OP-K Range of Motion Start: 03/06/22 12:42 Freq: Status: Active Protocol: Document 03/06/22 13:50 LRN (Rec: 03/06/22 18:58 [facility] [id number]) Ankle and Foot Goniometric Range of Motion Ankle and Foot Right Active Testing Position Supine Dorsiflexion with Knee Extended 5 Inversion 5 Comments Ankle AROM is approximated. Left Active Testing Position Supine Dorsiflexion with Knee Extended 7 Inversion 7 Comments Ankle AROM is approximated. PT-OP-M Strength Start: 03/06/22 12:42 Freq: Status: Active Protocol: Document 03/06/22 13:50 LRN (Rec: 03/06/22 18:58 LRN [id number]) Trunk Strength Trunk Manual Muscle Testing Core Stabilization Pt had difficulty maintaining a stable core during hip MMT. Comments Generally 5/5 Hip Strength Hip Manual Muscle Testing Right Flexion (L2) 4 Good Extension (S1) 3 Fair Adduction 4- Good- External Rotation 5 Normal Internal Rotation 5 Normal Left Flexion (L2) 4+ Good+ Abduction 3 Fair Adduction 4- Good- External Rotation 3+ Fair+ Internal Rotation 5 Normal Knee Strength Knee Manual Muscle Testing Right Flexion (S2) 5 Normal Extension (L3) 5 Normal Left Flexion (S2) 5 Normal Extension (L3) 5 Normal Ankle/Foot Strength Ankle and Foot Manual Muscle Testing Right Dorsiflexion (L4) 4+ Good+ Inversion 5 Normal Eversion (S1) 5 Normal Comments Strength is normal within available limited range. Left Dorsiflexion (L4) 4+ Good+ Inversion 5 Normal Eversion (S1) 5 Normal Comments Strength is normal within available limited range. PT-OP-Q Treatments Start: 03/06/22 12:42 Freq: Status: Active Protocol: Document 03/13/22 13:02 LRN (Rec: 03/13/22 13:52 LRN [id number]) Therapeutic Exercises Supine Exercises SKTC stretch Supine Exercise Name SKTC Side bilateral Comments ............. Pirifromis stretch Supine Exercise Name Piriformis stetch Side bilateral Comments ...... Lateral Hip stretch Supine Exercise Name Lateral Hip stretch Fig 4 stretch Supine Exercise Name Fig 4 stretch R TFL stretch Supine Exercise Name R TFL stretch with strap Comments Not able to get appropriate stretch Hip Flexor stretch Supine Exercise Name Hip Flexor stretch f/b AROM hip ext Side bilateral Reps/Minutes 4' Comments Extra time to find max tolerated stretch and to cue hip ext Standing Exercises Hip Flexor stretch Standing Exercise Name Hip Flexor stretch Side left Reps/Minutes 1' Comments Cuing to get stretch, but pt not able to get obvious stretch Soleus stretch Standing Exercise Name Soleus stretch Side bilateral Comments Extra time to obtain max stretch with toes forward Gastroc stretch Standing Exercise Name Gastroc stretch Side bilateral Reps/Minutes 1' each Comments Extra time to teach keeping toes forward & to find max stretch Manual Therapy Treatment Manual Traction Cervical Details Manual C. Tx Body Position Supine Reps/Duration 2' Self-Care/Home Management Treatment Education Patient Education Home Exercise Program Caregiver Education Discussed with physical therapist different options for TFL stretch in standing and supine; ruled out kneeling stretch, but decided best option to be in supine during Iliopsoas stretch she is to assist with providing TFL stretch. present throughout HEP education and training with instructions as needed to assist pt with stretch. Activities Self-Care/Home Management Activities Issued & reviewed HEP: Lateral Hip, Fig4, Piriformis (knee to opp shoulder),SKTC, BKFO, and sitting Hip AD (leg straight out in front on plinth). PT-OP-T Assessment and Plan Start: 03/06/22 12:42 Freq: Status: Active Protocol: Document 03/13/22 13:02 LRN (Rec: 03/13/22 13:52 LRN [id number]) Physical Therapy Assessment Goals Four Impairment Decreased balance placing pt at risk of falling Impairment Dizziness Questionnaire is 26 (20-39% impaired, score 20-39) JOY balance is 45 (1-19% impaired, 45-55) SLS is 7 secs R, 6 secs L. Tandem stance is: R foot behind 28 secs, L foot behind 4 secs. Short Term Goal (STG) Pt will demonstrate improved SLS or tandem stance to improve balance and pt risk of falling. STG Duration 04/22/22 Penitentiary Goal (LTG) Improve balance per JOY score to no less than 50. LTG Duration 06/04/22 Three Impairment Decreased endurance Impairment Pt [place] without having to stop at least once due to pain in the hips and lower leg/ feet. [employer] Goal (LTG) Improve pt endurance with pt able to walk from [place] to home without having to stop due to limiting pain in the hips, lower legs or feet. LTG Duration 06/04/22 Two Impairment Decreased functional mobility Impairment Pt has difficulty kneeling and getting back up at [employer]. ABC scale is 75 (20<20% impaired, 61-80) Short Term Goal (STG) Improve LE mobility with pt able to kneel and stand at [employer] with greater ease and improved posture. STG Duration 04/22/22 [employer] Goal (LTG) Pt will improve function per ABC score of 81 or greater (1< 20% impaired). LTG Duration 06/04/22 One Impairment Lacks appropriate self care HEP Short Term Goal (STG) Pt will be independent with a HEP of strengthening and endurance exercise. STG Duration 03/19/22 [employer] Goal (LTG) Pt will be independent with a HEP of balance and LE mobility ex's. (03/10/22: HEP: Standing Gastroc/Soleus & supine Ilipsoas stretch) (03/13/22: HEP: Hip stretches of ER-fig4 & leodan BKFO/IR- piriformis/Hip AD, I/S for R TFL stretch, SKTC stretch).. LTG Duration 04/22/22 (03/13/22: Progressed) Progress Towards Goals Progress Towards Goals Progressing Toward Goals Assessment Summary Assessment R lateral hip is tighter than L. Hip ER stretch is very limited, on L hip possibly due to previous fracture of the acetatabulum. Pt not able to perform supine TFL stretch, even with resistance; therefore held supine stretch. Physical Therapy Plan Frequency and Duration Frequency of Treatment 2x/Week Plan of Care Start Date 03/06/22 Plan of Care End Date 06/04/22 Next Visit Focus/Plan Next Note Type Treatment Note Next Visit Plan Review HEP: hip ER, IR, flex, AB/AD Add HEP: toe ext PROM & knee flex stretch & assess kneeling . Assess/treat DGI or FGA if impairment with gait noted ( assess for gait dysfunction), Assess sensation in feet and palpate for areas of burning pain with gait HEP of hip, ankle strengthening/endurance ex ( sit<>stands). Balance training. Pt education will be focused home exercises including balance exercises.
--- NOTE | 2022-03-17 17:15 | PT.OTN ---
Current Diagnoses Other abnormalities of gait and mobility (03/17/22) Weakness (03/17/22) Physical Therapy Treatment Note PT-OP-A Visit Information Start: 03/06/22 12:42 Freq: Status: Active Protocol: Document 03/17/22 13:47 LRN (Rec: 03/17/22 17:14 LRN [id number]) Out-Patient Physical Therapy Visit Information Visit Information Visit Type Treatment Note Visit Start Time 13:47 Visit Stop Time 14:33 Total Visit Minutes 46 Visit Number 4 Evaluation Information Evaluation Date 03/06/22 Precautions Precautions Pt reports: Completed radiation treatment to prostate on 01/07/22, Blackouts over several years with last one 1.5 yrs ago, mini-stroke, L fx'd hip 2 yrs ago, 8 stents : 3 in neck and 5 in heart ( descending aorta) 4 yrs ago. 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 Intake form: Arterial disease , controlled HBP, arthritis, neuropathy of feet and hands, PT-OP-B Current Condition Start: 03/06/22 12:42 Freq: Status: Active Protocol: Document 03/06/22 13:50 LRN (Rec: 03/06/22 18:58 LRN [id number]) Current Condition History of Current Condition Onset Date 01/07/22 Current Complaints Weakness of legs from radiation treatments & Lupron injections History of Current Condition [place] go 1 block the ankles and hips start to burn and must stop to wait. Pt spouse (Radha) who is a PT thinks it may be from arteries . Has done [facility] 3 yrs ago without pain in the legs with exercise. Since receiving Lupron injections ( to reduce testosterone) and radiation treatments he has had weakness in his legs and fatigue. Developmental History Developmental History Completed radiation treatment to prostate on 01/07/22. 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 Treatment Goals Patient/Caregiver Goals Pt goal is to measure strength and build it up again. Prior Functional Status Baseline Function- ADL's Independent Baseline Function- Mobility Independent Baseline Function- Gait Walked home with hips/ankles heating up and 3-4 stops/3 bks to walk home Current Functional Impairments (Reported) Functional Limitations- ADL's Weakness in ability to get medicine or pepsi bottle caps off. Able to do yardwork only 10-15 ' due to fatigue. Transfers sit<>stand causes heavy breathing sometimes. Neuropathy and electric shocks happens randomly mostly in the evening, several times a week. Functional Limitations- Mobility/Gait L>R Hips/ankles burn walking home with hips/ankles heating up and 1-2 stops/3 bks to walk home. 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 PT-OP-C Subjective Start: 03/06/22 12:42 Freq: Status: Active Protocol: Document 03/17/22 13:47 LRN (Rec: 03/17/22 17:14 LRN [id number]) OP-PT Subjective Patient Comments Patient Comments States he did all the ex's. PT-OP-D Balance Start: 03/06/22 12:42 Freq: Status: Active Protocol: Document 03/06/22 13:50 LRN (Rec: 03/06/22 18:58 LRN [id number]) OP-PT Balance Assessment Sitting Balance Static Sitting Balance Ability Normal Dynamic Sitting Balance Ability Normal Standing Balance Static Standing Balance Ability Normal Balance Tests Joy Balance Test Joy Balance Test Score 45 Joy Impairment Rating 1 to 19% Impaired (Score 45-55 ) Functional Reach Functional Reach Test 14 Single Limb Standing Single Limb- Right 7 Single Limb- Left 6 Semi-Tandem Standing Semi-Tandem Standing Balance Tandem stance is: R foot behind 28 secs, L foot behind 4 secs. Joy Balance Assessment Evaluation Sitting to Standing Ability Independent w/out Hands Unsupported Stance Safely- 2 minutes Sitting Unsupported, Feet on Floor Safely- 2 minutes Standing to Sitting Ability Safely, Minimal Hand Use Unsupported Stance- Eyes Closed Supervision, 10 seconds Unsupported Stance- Eyes Open Independent, 1 minute Reaching Forward Standing Confidently, 10 inches Pick- Up Object From Floor Independent/Safe Look Behind Shoulder - Standing Turns Sideways Only Turning 360 Degrees Turns Bilateral, < 4 secs Unsupported Stance, Alternating Feet on (I)- 8 Steps in 20 secs Stair Unsupported Tandem Stance Assist to Step-15 seconds Unilateral Leg Stance Lifts Leg/Holds 5-10 secs Total Score Joy Total Score (out of 56 points) 45 Joy Impairment Rating 1 to 19% Impaired (Score 45-55 ) Islas Fall Scale Copyright Permission PT-OP-E Functional Tests Start: 03/06/22 12:42 Freq: Status: Active Protocol: Document 03/17/22 13:47 LRN (Rec: 03/17/22 17:14 LRN [id number]) Functional Tests Dynamic Gait Index (DGI) Score 23 DGI Impairment Rating 1 to <20% Impaired (Score 20- 23) PT-OP-G Mobility & Gait Start: 03/06/22 12:42 Freq: Status: Active Protocol: Document 03/06/22 13:50 LRN (Rec: 03/06/22 18:58 LRN [id number]) OP Gait Assessment Gait Gait Assistance Required: Independent Assistive Devices Assistive Device None PT-OP-J Posture/Palpation/Skin Start: 03/06/22 12:42 Freq: Status: Active Protocol: Document 03/06/22 13:50 LRN (Rec: 03/06/22 18:58 LRN [id number]) Posture Evaluation Position Standing Head/C-Spine Posture Forward Head L-Spine Posture Decreased Lordosis Hip Posture (L) Externally Rotated,(R) Externally Rotated Comments Posture Comments Decreased thoracic curvature, mild anterior tilt of pelvis. PT-OP-K Range of Motion Start: 03/06/22 12:42 Freq: Status: Active Protocol: Document 03/06/22 13:50 LRN (Rec: 03/06/22 18:58 LRN [id number]) Ankle and Foot Goniometric Range of Motion Ankle and Foot Right Active Testing Position Supine Dorsiflexion with Knee Extended 5 Inversion 5 Comments Ankle AROM is approximated. Left Active Testing Position Supine Dorsiflexion with Knee Extended 7 Inversion 7 Comments Ankle AROM is approximated. PT-OP-M Strength Start: 03/06/22 12:42 Freq: Status: Active Protocol: Document 03/06/22 13:50 LRN (Rec: 03/06/22 18:58 LRN [id number]) Trunk Strength Trunk Manual Muscle Testing Core Stabilization Pt had difficulty maintaining a stable core during hip MMT. Comments Generally 5/5 Hip Strength Hip Manual Muscle Testing Right Flexion (L2) 4 Good Extension (S1) 3 Fair Adduction 4- Good- External Rotation 5 Normal Internal Rotation 5 Normal Left Flexion (L2) 4+ Good+ Abduction 3 Fair Adduction 4- Good- External Rotation 3+ Fair+ Internal Rotation 5 Normal Knee Strength Knee Manual Muscle Testing Right Flexion (S2) 5 Normal Extension (L3) 5 Normal Left Flexion (S2) 5 Normal Extension (L3) 5 Normal Ankle/Foot Strength Ankle and Foot Manual Muscle Testing Right Dorsiflexion (L4) 4+ Good+ Inversion 5 Normal Eversion (S1) 5 Normal Comments Strength is normal within available limited range. Left Dorsiflexion (L4) 4+ Good+ Inversion 5 Normal Eversion (S1) 5 Normal Comments Strength is normal within available limited range. PT-OP-Q Treatments Start: 03/06/22 12:42 Freq: Status: Active Protocol: Document 03/17/22 13:47 LRN (Rec: 03/17/22 17:14 LRN [id number]) Cardio Equipment Recumbent Stepper (Sci-Fit) Duration (Minutes) 5 Resistance 1 Seat Position 16 Other 50-60 rpm. Therapeutic Exercises Supine Exercises Pirifromis stretch Side bilateral Sitting Exercises Hip ER stretch Sitting Exercise Name Hip ER stretchn f/b active stretch Side bilateral Reps/Minutes 1' hold, f/b 10x active hip ER Comments phys & v cuing needed for upright posture and hip ER vs use of hands to ER Piriformis stretch Sitting Exercise Name Piriformis stretch Side bilateral Reps/Minutes 1' each Comments phys & v cuing needed for upright posture and proper stretch Standing Exercises Soleus stretch Standing Exercise Name Soleus stretch Side bilateral Comments Much extra time to obtain max stretch with toes forward Gastroc stretch Standing Exercise Name Gastroc stretch Side bilateral Reps/Minutes 1' each Comments Extra time to teach keeping toes forward & to find max stretch Gait Training Gait Activity Stair amb Description 6 steps Device Used None Level of Assistance SBA>Independent Distance/Duration 2 sets of steps Treatment Focus Balance with stair ambulation Comments Pt visually, with first step, had uncertainty of depth of step; therefore was unsure of stair ambulation. Gait with obstacles Description Stepping over and around obstacles Device Used Green hurdles and cones Level of Assistance None Distance/Duration 3' Treatment Focus Stability with gait Comments Pt improved in stability with practice. Gait pivot and turns Description Walking with pivot turns and stopping Device Used None Level of Assistance SBA/GB Surface Level, solid Distance/Duration 10 ft Treatment Focus Balance with turns Comments Pt appeared to be balanced on heels after turning. Pt turned quickly and was I/S to slow turns for stability. Gait speed change Description Walking with speed changes ( fast/slow) Device Used None Level of Assistance SBA/BG Surface Level, solid Distance/Duration 100+ Treatment Focus Balance with gait Comments Pt showed good balance with gait speed changes Gait with head mvmts Description Walking with head movements up /down, side to side Device Used None Level of Assistance SBA/GB Surface Level, solid Distance/Duration 100+ Treatment Focus Balance with gait Comments Pt had increased sway with looking side to side PT-OP-T Assessment and Plan Start: 03/06/22 12:42 Freq: Status: Active Protocol: Document 03/17/22 13:47 LRN (Rec: 03/17/22 17:14 LRN [id number]) Physical Therapy Assessment Goals Four Impairment Decreased balance placing pt at risk of falling Impairment Dizziness Questionnaire is 26 (20-39% impaired, score 20-39) JOY balance is 45 (1-19% impaired, 45-55) SLS is 7 secs R, 6 secs L. Tandem stance is: R foot behind 28 secs, L foot behind 4 secs. Short Term Goal (STG) Pt will demonstrate improved SLS or tandem stance to improve balance and pt risk of falling. STG Duration 04/22/22 Fdc Goal (LTG) Improve balance per JOY score to no less than 50. LTG Duration 06/04/22 Three Impairment Decreased endurance Impairment Pt not [place] without having to stop at least once due to pain in the hips and lower leg/ feet. Fdc Goal (LTG) Improve pt endurance with pt able to walk from ferry to home without having to stop due to limiting pain in the hips, lower legs or feet. LTG Duration 06/04/22 Two Impairment Decreased functional mobility Impairment Pt has difficulty kneeling and getting back up at [facility]. ABC scale is 75 (20<20% impaired, 61-80) Short Term Goal (STG) Improve LE mobility with pt able to kneel and stand at mosque with greater ease and improved posture. STG Duration 04/22/22 Mental Health Therapist Goal (LTG) Pt will improve function per ABC score of 81 or greater (1< 20% impaired). LTG Duration 06/04/22 One Impairment Lacks appropriate self care HEP Short Term Goal (STG) Pt will be independent with a HEP of strengthening and endurance exercise. STG Duration 03/19/22 Fdc Goal (LTG) Pt will be independent with a HEP of balance and LE mobility ex's. (03/10/22: HEP: Standing Gastroc/Soleus & supine Ilipsoas stretch) (03/13/22: HEP: Hip stretches of ER-fig4 & leodan BKFO/IR- piriformis/Hip AD, I/S for R TFL stretch, SKTC stretch).. LTG Duration 04/22/22 (03/13/22: Progressed) Assessment Summary Assessment DGI score is 23/24 (1-19% impaired), indicating low risk of falling with gait. Pt needing much review for Soleus stretch to keept from getting R knee pain with positioning. Pt needed cuing for hip flexor and gastroc stretch to spread feet some. Pt shows good stability with gait,mild impairment with walking head rotations and with turning and stopping. Pt tolerated aerobic exercise with no shortness of breath when keeping stepper speed 50-60. Pt needed verbal cuing for to work within his talking capacity during exercise. Pt lack of awareness of limitations may be his hinderance for safety with exercise. Physical Therapy Plan Frequency and Duration Frequency of Treatment 2x/Week Plan of Care Start Date 03/06/22 Plan of Care End Date 06/04/22 Next Visit Focus/Plan Next Note Type Treatment Note Next Visit Plan Increase aerobic exercise to 10' on Scifit with pt being able to pass talk test during exercise. Review HEP: soleus/gastroc/ iliopsoas and hip AB/AD stretch. Add HEP: toe ext PROM & knee flex stretch & assess kneeling . Assess sensation in feet and palpate for areas of burning pain with gait HEP of hip, ankle strengthening/endurance ex ( sit<>stands). Balance training. Pt education will be focused home exercises including balance exercises.
--- NOTE | 2022-03-20 10:30 | PT.OTN ---
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 Intake form: Arterial disease , controlled HBP, arthritis, neuropathy of feet and hands, PT-OP-B Current Condition Start: 03/06/22 12:42 Freq: Status: Active Protocol: Document 03/06/22 13:50 LRN (Rec: 03/06/22 18:58 LRN [id number]) Current Condition History of Current Condition Onset Date 01/07/22 Current Complaints Weakness of legs from radiation treatments & Lupron injections History of Current Condition Walks 3 blocks to [employer] [place] and can only go 1 block the ankles and hips start to burn and must stop to wait. Pt spouse (Radha) who is a PT thinks it may be from arteries . Has done [facility] rehab 3 yrs ago without pain in the legs with exercise. Since receiving Lupron injections ( to reduce testosterone) and radiation treatments he has had weakness in his legs and fatigue. Developmental History Developmental History Completed radiation treatment to prostate on 01/07/22. 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 Treatment Goals Patient/Caregiver Goals Pt goal is to measure strength and build it up again. Prior Functional Status Baseline Function- ADL's Independent Baseline Function- Mobility Independent Baseline Function- Gait Walked home with hips/ankles heating up and 3-4 stops/3 bks to walk home Current Functional Impairments (Reported) Functional Limitations- ADL's Weakness in ability to get medicine or pepsi bottle caps off. Able to do yardwork only 10-15 ' due to fatigue. Transfers sit<>stand causes heavy breathing sometimes. Neuropathy and electric shocks happens randomly mostly in the evening, several times a week. Functional Limitations- Mobility/Gait L>R Hips/ankles burn walking home with hips/ankles heating up and 1-2 stops/3 bks to walk home. 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 PT-OP-C Subjective Start: 03/06/22 12:42 Freq: Status: Active Protocol: Document 03/20/22 09:50 SP (Rec: 03/20/22 10:33 SP [id number]) OP-PT Subjective Patient Comments Patient Comments Pt states didn't do much of ex since last tx: [facility] [employer] [facility] and family in [facility] visit. PT-OP-D Balance Start: 03/06/22 12:42 Freq: Status: Active Protocol: Document 03/06/22 13:50 LRN (Rec: 03/06/22 18:58 LRN [id number]) OP-PT Balance Assessment Sitting Balance Static Sitting Balance Ability Normal Dynamic Sitting Balance Ability Normal Standing Balance Static Standing Balance Ability Normal Balance Tests Joy Balance Test Joy Balance Test Score 45 Joy Impairment Rating 1 to 19% Impaired (Score 45-55 ) Functional Reach Functional Reach Test 14 Single Limb Standing Single Limb- Right 7 Single Limb- Left 6 Semi-Tandem Standing Semi-Tandem Standing Balance Tandem stance is: R foot behind 28 secs, L foot behind 4 secs. Joy Balance Assessment Evaluation Sitting to Standing Ability Independent w/out Hands Unsupported Stance Safely- 2 minutes Sitting Unsupported, Feet on Floor Safely- 2 minutes Standing to Sitting Ability Safely, Minimal Hand Use Unsupported Stance- Eyes Closed Supervision, 10 seconds Unsupported Stance- Eyes Open Independent, 1 minute Reaching Forward Standing Confidently, 10 inches Pick- Up Object From Floor Independent/Safe Look Behind Shoulder - Standing Turns Sideways Only Turning 360 Degrees Turns Bilateral, < 4 secs Unsupported Stance, Alternating Feet on (I)- 8 Steps in 20 secs Stair Unsupported Tandem Stance Assist to Step-15 seconds Unilateral Leg Stance Lifts Leg/Holds 5-10 secs Total Score Joy Total Score (out of 56 points) 45 Joy Impairment Rating 1 to 19% Impaired (Score 45-55 ) Islas Fall Scale Copyright Permission PT-OP-E Functional Tests Start: 03/06/22 12:42 Freq: Status: Active Protocol: Document 03/17/22 13:47 LRN (Rec: 03/17/22 17:14 LRN [id number]) Functional Tests Dynamic Gait Index (DGI) Score 23 DGI Impairment Rating 1 to <20% Impaired (Score 20- 23) PT-OP-G Mobility & Gait Start: 03/06/22 12:42 Freq: Status: Active Protocol: Document 03/06/22 13:50 LRN (Rec: 03/06/22 18:58 LRN [id number]) OP Gait Assessment Gait Gait Assistance Required: Independent Assistive Devices Assistive Device None PT-OP-J Posture/Palpation/Skin Start: 03/06/22 12:42 Freq: Status: Active Protocol: Document 03/06/22 13:50 LRN (Rec: 03/06/22 18:58 LRN [id number]) Posture Evaluation Position Standing Head/C-Spine Posture Forward Head L-Spine Posture Decreased Lordosis Hip Posture (L) Externally Rotated,(R) Externally Rotated Comments Posture Comments Decreased thoracic curvature, mild anterior tilt of pelvis. PT-OP-K Range of Motion Start: 03/06/22 12:42 Freq: Status: Active Protocol: Document 03/06/22 13:50 LRN (Rec: 03/06/22 18:58 LRN [id number]) Ankle and Foot Goniometric Range of Motion Ankle and Foot Right Active Testing Position Supine Dorsiflexion with Knee Extended 5 Inversion 5 Comments Ankle AROM is approximated. Left Active Testing Position Supine Dorsiflexion with Knee Extended 7 Inversion 7 Comments Ankle AROM is approximated. PT-OP-M Strength Start: 03/06/22 12:42 Freq: Status: Active Protocol: Document 03/06/22 13:50 LRN (Rec: 03/06/22 18:58 LRN [id number]) Trunk Strength Trunk Manual Muscle Testing Core Stabilization Pt had difficulty maintaining a stable core during hip MMT. Comments Generally 5/5 Hip Strength Hip Manual Muscle Testing Right Flexion (L2) 4 Good Extension (S1) 3 Fair Adduction 4- Good- External Rotation 5 Normal Internal Rotation 5 Normal Left Flexion (L2) 4+ Good+ Abduction 3 Fair Adduction 4- Good- External Rotation 3+ Fair+ Internal Rotation 5 Normal Knee Strength Knee Manual Muscle Testing Right Flexion (S2) 5 Normal Extension (L3) 5 Normal Left Flexion (S2) 5 Normal Extension (L3) 5 Normal Ankle/Foot Strength Ankle and Foot Manual Muscle Testing Right Dorsiflexion (L4) 4+ Good+ Inversion 5 Normal Eversion (S1) 5 Normal Comments Strength is normal within available limited range. Left Dorsiflexion (L4) 4+ Good+ Inversion 5 Normal Eversion (S1) 5 Normal Comments Strength is normal within available limited range. PT-OP-Q Treatments Start: 03/06/22 12:42 Freq: Status: Active Protocol: Document 03/20/22 09:50 SP (Rec: 03/20/22 10:33 SP [id number]) Cardio Equipment Recumbent Stepper (Sci-Fit) Duration (Minutes) 5 Resistance 4 Seat Position 16 (15 next tx due to feet coming out at times) Other 50-60 rpm, 0.85 miles (POC 10 min next tx) Gym Equipment Shuttle Recovery bilteral squat Resistance 75# Shuttle Recovery Platform Stable unilateral squat Resistance 37# Shuttle Recovery Platform Stable Therapeutic Exercises Supine Exercises SKTC stretch Supine Exercise Name SKTC Side bilateral Reps/Minutes 30 x2 Comments good form and stretch felt Pirifromis stretch Supine Exercise Name HEP reviewed Side bilateral Equipment Used foot over opp knee and that knee held toward opp chest Reps/Minutes 30 x2 Comments good stretch Lateral Hip stretch Supine Exercise Name Lateral Hip stretch Side bilateral Reps/Minutes 30 x2 Comments good stretch felt and form demonstrated. Fig 4 stretch Supine Exercise Name HEP reviewed Equipment Used foot over opp knee and that knee fall out to side Hip Flexor stretch Supine Exercise Name Will stretch Side bilateral Reps/Minutes 30 Comments states hasn't tried at home yet, good response in PT Sitting Exercises Hip ER stretch Sitting Exercise Name Hip ER stretchn f/b active stretch Side bilateral Reps/Minutes 1' hold, f/b 10x active hip ER Comments good upright posture and hip ER vs use of hands to ER stretch Piriformis stretch Sitting Exercise Name Piriformis stretch Side bilateral Reps/Minutes 1' each Comments good form and proper stretch Sit to stand Sitting Exercise Name 30 Sit to Stand Equipment Used chair, arms across chest Reps/Minutes 10.5 reps in 30 Comments cued forward more to allow knees full ext x2 reps. Standing Exercises band walk Standing Exercise Name added to HEP Resistance TB #3 loop Equipment Used bar Reps/Minutes 10 ft x3 laps f/b/s Comments cued feet // little wider than normal stance Hip Flexor stretch Standing Exercise Name Hip Flexor stretch Side left Equipment Used wall Reps/Minutes 1' Comments Cuing to get stretch, but pt not able to get obvious stretch Soleus stretch Standing Exercise Name Soleus stretch Side bilateral Equipment Used wall Reps/Minutes 1' Comments good form Gastroc stretch Standing Exercise Name Gastroc stretch Side bilateral Equipment Used wall Reps/Minutes 1' each Comments good form Therapeutic Activity Therapeutic Activity on/ off floor Name stand<>1/2 kneel<> tall kneel Reps/Minutes x2 Comments Pt able to complete floor transfer to tall knee light contact up/down onto R knee LLE front due to LLE strong leg, Mod WB contact to chair if RLE front leg and ascend/ descend onto L knee. He is ableto tall kneel but notices puts more WB on LLE due to RLE weakness. Self-Care/Home Management Treatment Education Patient Education Home Exercise Program Other Education added band walk for posture, balance and LE strengthening. PT-OP-T Assessment and Plan Start: 03/06/22 12:42 Freq: Status: Active Protocol: Document 03/20/22 09:50 SP (Rec: 03/20/22 10:33 SP [id number]) Physical Therapy Assessment Goals Four Impairment Decreased balance placing pt at risk of falling Impairment Dizziness Questionnaire is 26 (20-39% impaired, score 20-39) JOY balance is 45 (1-19% impaired, 45-55) SLS is 7 secs R, 6 secs L. Tandem stance is: R foot behind 28 secs, L foot behind 4 secs. Short Term Goal (STG) Pt will demonstrate improved SLS or tandem stance to improve balance and pt risk of falling. STG Duration 04/22/22 Alf Goal (LTG) Improve balance per JOY score to no less than 50. LTG Duration 06/04/22 Three Impairment Decreased endurance Impairment [place] having to stop at least once due to pain in the hips and lower leg/ feet. Gasoline Engine Assembler Goal (LTG) Improve pt endurance with pt able to [place] without having to stop due to limiting pain in the hips, lower legs or feet. LTG Duration 06/04/22 Two Impairment Decreased functional mobility Impairment Pt has difficulty kneeling and getting back up at adventist. ABC scale is 75 (20<20% impaired, 61-80) Short Term Goal (STG) Improve LE mobility with pt able to kneel and stand at adventist with greater ease and improved posture. 03/20/22: He is able to complete stand>1/2 kneel> tall kneel, maintain tall kneel but notices puts more WB on LLE due to RLE weakness, stronger and less UE support if LLE front to support care information associate 1/2 kneel. STG Duration 04/22/22 (progressin03/20/22 ) Gasoline Engine Assembler Goal (LTG) Pt will improve function per ABC score of 81 or greater (1< 20% impaired). LTG Duration 06/04/22 One Impairment Lacks appropriate self care HEP Short Term Goal (STG) Pt will be independent with a HEP of strengthening and endurance exercise. STG Duration 03/19/22 Alf Goal (LTG) Pt will be independent with a HEP of balance and LE mobility ex's. (03/10/22: HEP: Standing Gastroc/Soleus & supine Ilipsoas stretch) (03/13/22: HEP: Hip stretches of ER-fig4 & leodan BKFO/IR- piriformis/Hip AD, I/S for R TFL stretch, SKTC stretch).. 03/30/22: reviewed stretching, HEP with good form, added band walk for core/ hip abd, functional strengthening/ balance. LTG Duration 04/22/22 (03/20/22: Progressed) Assessment Summary Assessment Pt good demonstration stretching HEP. States the stretching helping. Pt good response to added band walk to HEP for core, hip abd strengthening and postural alignment stability progression. Pt was able to get on/ off floor with light support chair LLE front/ Mod UE support RLE front and main tall kneel but more WB L>R LE reported no UE contact needed. Physical Therapy Plan Frequency and Duration Frequency of Treatment 2x/Week Plan of Care Start Date 03/06/22 Plan of Care End Date 06/04/22 Therapeutic Interventions Therapeutic Interventions Aquatic Therapy,Balance Training,Gait Training,Home Exercise Program,Joint Mobilizations,Manual Therapy, Neuromuscular Re-education, Patient/Caregiver Education, Self-Care/Home Management,Soft Tissue Mobilization, Therapeutic Activities, Therapeutic Exercises Modalities Cold Pack/Ice Massage,Hot Packs Next Visit Focus/Plan Next Note Type Treatment Note Next Visit Plan Increase aerobic exercise to 10' on Scifit with pt being able to pass talk test during exercise. Review HEP: soleus/gastroc/ iliopsoas and hip AB/AD stretch, band walk. Add HEP: toe ext PROM & knee flex stretch. Assess sensation in feet and palpate for areas of burning pain with gait HEP of hip, ankle strengthening/endurance ex ( sit<>stands). Balance training. Pt education will be focused home exercises including balance exercises.
--- NOTE | 2022-04-01 15:09 | PT-OP ANOTE ---
Pt had to cancel last 3 appts, need go out of town. Next appt scheduled to see PT.
--- NOTE | 2022-04-03 12:03 | PT.OTN ---
Current Diagnoses Other abnormalities of gait and mobility (04/03/22) Weakness (04/03/22) Physical Therapy Treatment Note PT-OP-A Visit Information Start: 03/06/22 12:42 Freq: Status: Active Protocol: Document 04/03/22 10:35 LRN (Rec: 04/03/22 11:21 LRN [id number]) Out-Patient Physical Therapy Visit Information Visit Information Visit Type Treatment Note Visit Start Time 10:35 Visit Stop Time 11:20 Total Visit Minutes 45 Visit Number 6 Evaluation Information Evaluation Date 03/06/22 Precautions Precautions Pt reports: Completed radiation treatment to prostate on 01/07/22, Blackouts over several years with last one 1.5 yrs ago, mini-stroke, L fx'd hip 2 yrs ago, 8 stents : 3 in neck and 5 in heart ( descending aorta) 4 yrs ago. 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 Intake form: Arterial disease , controlled HBP, arthritis, neuropathy of feet and hands, PT-OP-B Current Condition Start: 03/06/22 12:42 Freq: Status: Active Protocol: Document 03/06/22 13:50 LRN (Rec: 03/06/22 18:58 LRN [id number]) Current Condition History of Current Condition Onset Date 01/07/22 Current Complaints Weakness of legs from radiation treatments & Lupron injections History of Current Condition [place] go 1 block the ankles and hips start to burn and must stop to wait. Pt spouse (Radha) who is a PT thinks it may be from arteries . Has done [facility] 3 yrs ago without pain in the legs with exercise. Since receiving Lupron injections ( to reduce testosterone) and radiation treatments he has had weakness in his legs and fatigue. Developmental History Developmental History Completed radiation treatment to prostate on 01/07/22. 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 Treatment Goals Patient/Caregiver Goals Pt goal is to measure strength and build it up again. Prior Functional Status Baseline Function- ADL's Independent Baseline Function- Mobility Independent Baseline Function- Gait Walked home with hips/ankles heating up and 3-4 stops/3 bks to walk home Current Functional Impairments (Reported) Functional Limitations- ADL's Weakness in ability to get medicine or pepsi bottle caps off. Able to do yardwork only 10-15 ' due to fatigue. Transfers sit<>stand causes heavy breathing sometimes. Neuropathy and electric shocks happens randomly mostly in the evening, several times a week. Functional Limitations- Mobility/Gait L>R Hips/ankles burn walking home with hips/ankles heating up and 1-2 stops/3 bks to walk home. 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 PT-OP-C Subjective Start: 03/06/22 12:42 Freq: Status: Active Protocol: Document 04/03/22 10:35 LRN (Rec: 04/03/22 11:21 LRN [id number]) OP-PT Subjective Patient Comments Patient Comments Pt requests information on GOALS, Tests and results. Has been traveling and helping at the [employer] during the holiday , so didn't do exercises. PT-OP-D Balance Start: 03/06/22 12:42 Freq: Status: Active Protocol: Document 03/06/22 13:50 LRN (Rec: 03/06/22 18:58 LRN [id number]) OP-PT Balance Assessment Sitting Balance Static Sitting Balance Ability Normal Dynamic Sitting Balance Ability Normal Standing Balance Static Standing Balance Ability Normal Balance Tests Joy Balance Test Joy Balance Test Score 45 Joy Impairment Rating 1 to 19% Impaired (Score 45-55 ) Functional Reach Functional Reach Test 14 Single Limb Standing Single Limb- Right 7 Single Limb- Left 6 Semi-Tandem Standing Semi-Tandem Standing Balance Tandem stance is: R foot behind 28 secs, L foot behind 4 secs. Joy Balance Assessment Evaluation Sitting to Standing Ability Independent w/out Hands Unsupported Stance Safely- 2 minutes Sitting Unsupported, Feet on Floor Safely- 2 minutes Standing to Sitting Ability Safely, Minimal Hand Use Unsupported Stance- Eyes Closed Supervision, 10 seconds Unsupported Stance- Eyes Open Independent, 1 minute Reaching Forward Standing Confidently, 10 inches Pick- Up Object From Floor Independent/Safe Look Behind Shoulder - Standing Turns Sideways Only Turning 360 Degrees Turns Bilateral, < 4 secs Unsupported Stance, Alternating Feet on (I)- 8 Steps in 20 secs Stair Unsupported Tandem Stance Assist to Step-15 seconds Unilateral Leg Stance Lifts Leg/Holds 5-10 secs Total Score Joy Total Score (out of 56 points) 45 Joy Impairment Rating 1 to 19% Impaired (Score 45-55 ) Islas Fall Scale Copyright Permission PT-OP-E Functional Tests Start: 03/06/22 12:42 Freq: Status: Active Protocol: Document 03/17/22 13:47 LRN (Rec: 03/17/22 17:14 LRN [id number]) Functional Tests Dynamic Gait Index (DGI) Score 23 DGI Impairment Rating 1 to <20% Impaired (Score 20- 23) PT-OP-G Mobility & Gait Start: 03/06/22 12:42 Freq: Status: Active Protocol: Document 03/06/22 13:50 LRN (Rec: 03/06/22 18:58 LRN [id number]) OP Gait Assessment Gait Gait Assistance Required: Independent Assistive Devices Assistive Device None PT-OP-J Posture/Palpation/Skin Start: 03/06/22 12:42 Freq: Status: Active Protocol: Document 03/06/22 13:50 LRN (Rec: 03/06/22 18:58 LRN [id number]) Posture Evaluation Position Standing Head/C-Spine Posture Forward Head L-Spine Posture Decreased Lordosis Hip Posture (L) Externally Rotated,(R) Externally Rotated Comments Posture Comments Decreased thoracic curvature, mild anterior tilt of pelvis. PT-OP-K Range of Motion Start: 03/06/22 12:42 Freq: Status: Active Protocol: Document 03/06/22 13:50 LRN (Rec: 03/06/22 18:58 LRN [id number]) Ankle and Foot Goniometric Range of Motion Ankle and Foot Right Active Testing Position Supine Dorsiflexion with Knee Extended 5 Inversion 5 Comments Ankle AROM is approximated. Left Active Testing Position Supine Dorsiflexion with Knee Extended 7 Inversion 7 Comments Ankle AROM is approximated. PT-OP-M Strength Start: 03/06/22 12:42 Freq: Status: Active Protocol: Document 03/06/22 13:50 LRN (Rec: 03/06/22 18:58 LRN [id number]) Trunk Strength Trunk Manual Muscle Testing Core Stabilization Pt had difficulty maintaining a stable core during hip MMT. Comments Generally 5/5 Hip Strength Hip Manual Muscle Testing Right Flexion (L2) 4 Good Extension (S1) 3 Fair Adduction 4- Good- External Rotation 5 Normal Internal Rotation 5 Normal Left Flexion (L2) 4+ Good+ Abduction 3 Fair Adduction 4- Good- External Rotation 3+ Fair+ Internal Rotation 5 Normal Knee Strength Knee Manual Muscle Testing Right Flexion (S2) 5 Normal Extension (L3) 5 Normal Left Flexion (S2) 5 Normal Extension (L3) 5 Normal Ankle/Foot Strength Ankle and Foot Manual Muscle Testing Right Dorsiflexion (L4) 4+ Good+ Inversion 5 Normal Eversion (S1) 5 Normal Comments Strength is normal within available limited range. Left Dorsiflexion (L4) 4+ Good+ Inversion 5 Normal Eversion (S1) 5 Normal Comments Strength is normal within available limited range. PT-OP-Q Treatments Start: 03/06/22 12:42 Freq: Status: Active Protocol: Document 04/03/22 10:35 LRN (Rec: 04/03/22 11:21 LRN [id number]) Cardio Equipment Recumbent Stepper (Sci-Fit) Duration (Minutes) 8 Resistance 4 Seat Position 16 (15 next tx due to feet coming out at times) Other 50-60 rpm, 2.2 miles (POC work up to 10 min) Therapeutic Exercises Prone Exercises Knee flex stretch Prone Exercise Name Knee flex stretch attempted Reps/Minutes 3' Comments Pt had difficulty with prone positioning for the stretch; therefore DC'd Sitting Exercises Knee flexion stretch Sitting Exercise Name Sitting knee flexion stretch attempted Reps/Minutes 2' Comments Due to pt's long legs, unable to position pt adequately for a stretch; DC'd Hip ER stretch Sitting Exercise Name Hip ER stretchn f/b active stretch Side bilateral Reps/Minutes 1' hold, f/b 10x active hip ER Comments good upright posture and hip ER vs use of hands to ER stretch Piriformis stretch Sitting Exercise Name Piriformis stretch Side bilateral Reps/Minutes 1' each Comments good form and proper stretch Sit to stand Sitting Exercise Name 30 Sit to Stand Equipment Used chair, arms across chest Reps/Minutes 10 reps in 30 Comments cued forward more to allow knees full ext x2 reps. Standing Exercises Quad Stretch Standing Exercise Name Quad stretch Side bilateral Equipment Used Stool to support foot with knee in 90/90 position. Reps/Minutes 1' each with extra time for positioning. Comments Pt quads so tight, stretch felt in quads vs knee joint. band walk Standing Exercise Name Band Walk Resistance TB #3 loop Equipment Used bar Reps/Minutes 10 ft x4 laps f/b/s Comments cued feet & posture // little wider than normal stance Hip Flexor stretch Standing Exercise Name Hip Flexor stretch Side left Equipment Used wall Reps/Minutes 1' Comments Cuing to get stretch, but pt not able to get obvious stretch Soleus stretch Standing Exercise Name Soleus stretch Side bilateral Equipment Used wall Reps/Minutes 1' Comments good form Gastroc stretch Standing Exercise Name Gastroc stretch Side bilateral Equipment Used wall Reps/Minutes 1' each Comments good form Self-Care/Home Management Treatment Activities Self-Care/Home Management Activities Issued & reviewed Band walk handout. PT-OP-T Assessment and Plan Start: 03/06/22 12:42 Freq: Status: Active Protocol: Document 04/03/22 10:35 LRN (Rec: 04/03/22 11:21 LRN [id number]) Physical Therapy Assessment Goals Four Impairment Decreased balance placing pt at risk of falling Impairment Dizziness Questionnaire is 26 (20-39% impaired, score 20-39) JOY balance is 45 (1-19% impaired, 45-55) SLS is 7 secs R, 6 secs L. Tandem stance is: R foot behind 28 secs, L foot behind 4 secs. Short Term Goal (STG) Pt will demonstrate improved SLS or tandem stance to improve balance and pt risk of falling. STG Duration 04/22/22 Boxing And Pressing Supervisor Goal (LTG) Improve balance per JOY score to no less than 50. LTG Duration 06/04/22 Three Impairment Decreased endurance Impairment Pt [place] without having to stop at least once due to pain in the hips and lower leg/ feet. Half-Way Goal (LTG) Improve pt endurance with pt able to walk from ferry to home without having to stop due to limiting pain in the hips, lower legs or feet. LTG Duration 06/04/22 Two Impairment Decreased functional mobility Impairment Pt has difficulty kneeling and getting back up at [employer]. ABC scale is 75 (20<20% impaired, 61-80) Short Term Goal (STG) Improve LE mobility with pt able to kneel and stand at [employer] with greater ease and improved posture. 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 STG Duration 04/22/22 (progressin03/20/22 ) Boxing And Pressing Supervisor Goal (LTG) Pt will improve function per ABC score of 81 or greater (1< 20% impaired). LTG Duration 06/04/22 One Impairment Lacks appropriate self care HEP Short Term Goal (STG) Pt will be independent with a HEP of strengthening and endurance exercise. STG Duration 03/19/22 Boxing And Pressing Supervisor Goal (LTG) Pt will be independent with a HEP of balance and LE mobility ex's. (03/10/22: HEP: Standing Gastroc/Soleus & supine Ilipsoas stretch) (03/13/22: HEP: Hip stretches of ER-fig4 & leodan BKFO/IR- piriformis/Hip AD, I/S for R TFL stretch, SKTC stretch).. 03/30/22: reviewed stretching, HEP with good form, added band walk for core/ hip abd, functional strengthening/ balance. LTG Duration 04/22/22 (03/20/22: Progressed) Assessment Summary Assessment Good recall of HEP: Sitting ER/IR stretch, but needed phys & v cuing for proper positioning with standing stretches (soleus/gastroc/ iliopsoas). Pt not able to keep body stable and forward during band walk, stepping out with the R LE. Pt Quads very tight limiting knee flex, probably making kneeling difficult. Physical Therapy Plan Frequency and Duration Frequency of Treatment 2x/Week Plan of Care Start Date 03/06/22 Plan of Care End Date 06/04/22 Next Visit Focus/Plan Next Note Type Treatment Note Next Visit Plan Progressively increase aerobic exercise to 10' on Scifit with pt being able to pass talk test during exercise. Review hip AD stretch. Discuss use of his home ex equipment for appropriateness. Add HEP: Toe ext PROM & knee flex stretch (to make kneeling easier). Assess sensation in feet and palpate for areas of burning pain with gait HEP of hip, ankle strengthening/endurance (sit<> stands) and walking. Balance training (SLS, Tandem, etc). Pt education will be focused home exercises including balance exercises.
--- NOTE | 2022-04-07 11:18 | PT.OTN ---
Current Diagnoses Other abnormalities of gait and mobility (04/07/22) Weakness (04/07/22) Physical Therapy Treatment Note PT-OP-A Visit Information Start: 03/06/22 12:42 Freq: Status: Active Protocol: Document 04/07/22 10:32 SP (Rec: 04/07/22 11:20 SP [id number]) Out-Patient Physical Therapy Visit Information Visit Information Visit Type Treatment Note Visit Note Vitals taken post [place] for aerobic activity: 146/65, BP 79, 98% on RA. Visit Start Time 10:32 Visit Stop Time 11:18 Total Visit Minutes 46 Visit Number 7 Number of CURTAIN STRETCHER Visits 1 Evaluation Information Evaluation Date 03/06/22 Precautions Precautions Pt reports: Completed radiation treatment to prostate on 01/07/22, Blackouts over several years with last one 1.5 yrs ago, mini-stroke, L fx'd hip 2 yrs ago, 8 stents : 3 in neck and 5 in heart ( descending aorta) 4 yrs ago. 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 Intake form: Arterial disease , controlled HBP, arthritis, neuropathy of feet and hands, PT-OP-B Current Condition Start: 03/06/22 12:42 Freq: Status: Active Protocol: Document 03/06/22 13:50 LRN (Rec: 03/06/22 18:58 LRN [id number]) Current Condition History of Current Condition Onset Date 01/07/22 Current Complaints Weakness of legs from radiation treatments & Lupron injections History of Current Condition Walks 3 blocks to [place] and can only go 1 block the ankles and hips start to burn and must stop to wait. Pt spouse (Radha) who is a PT thinks it may be from arteries . Has done [facility] rehab 3 yrs ago without pain in the legs with exercise. Since receiving Lupron injections ( to reduce testosterone) and radiation treatments he has had weakness in his legs and fatigue. Developmental History Developmental History Completed radiation treatment to prostate on 01/07/22. 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 Treatment Goals Patient/Caregiver Goals Pt goal is to measure strength and build it up again. Prior Functional Status Baseline Function- ADL's Independent Baseline Function- Mobility Independent Baseline Function- Gait Walked home with hips/ankles heating up and 3-4 stops/3 bks to walk home Current Functional Impairments (Reported) Functional Limitations- ADL's Weakness in ability to get medicine or pepsi bottle caps off. Able to do yardwork only 10-15 ' due to fatigue. Transfers sit<>stand causes heavy breathing sometimes. Neuropathy and electric shocks happens randomly mostly in the evening, several times a week. Functional Limitations- Mobility/Gait L>R Hips/ankles burn walking home with hips/ankles heating up and 1-2 stops/3 bks to walk home. 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 PT-OP-C Subjective Start: 03/06/22 12:42 Freq: Status: Active Protocol: Document 04/07/22 10:32 SP (Rec: 04/07/22 11:20 SP [id number]) OP-PT Subjective Patient Comments Patient Comments Pt reported is fasting since mid night Thursday (evening) for MRI tomorrow Tues at 11am. Requested awareness of cardio activity due to lack of food intake at this time. Stated felt fine after last tx, always feel like L calf is over stretched. PT-OP-D Balance Start: 03/06/22 12:42 Freq: Status: Active Protocol: Document 03/06/22 13:50 LRN (Rec: 03/06/22 18:58 LRN [id number]) OP-PT Balance Assessment Sitting Balance Static Sitting Balance Ability Normal Dynamic Sitting Balance Ability Normal Standing Balance Static Standing Balance Ability Normal Balance Tests Joy Balance Test Joy Balance Test Score 45 Joy Impairment Rating 1 to 19% Impaired (Score 45-55 ) Functional Reach Functional Reach Test 14 Single Limb Standing Single Limb- Right 7 Single Limb- Left 6 Semi-Tandem Standing Semi-Tandem Standing Balance Tandem stance is: R foot behind 28 secs, L foot behind 4 secs. Joy Balance Assessment Evaluation Sitting to Standing Ability Independent w/out Hands Unsupported Stance Safely- 2 minutes Sitting Unsupported, Feet on Floor Safely- 2 minutes Standing to Sitting Ability Safely, Minimal Hand Use Unsupported Stance- Eyes Closed Supervision, 10 seconds Unsupported Stance- Eyes Open Independent, 1 minute Reaching Forward Standing Confidently, 10 inches Pick- Up Object From Floor Independent/Safe Look Behind Shoulder - Standing Turns Sideways Only Turning 360 Degrees Turns Bilateral, < 4 secs Unsupported Stance, Alternating Feet on (I)- 8 Steps in 20 secs Stair Unsupported Tandem Stance Assist to Step-15 seconds Unilateral Leg Stance Lifts Leg/Holds 5-10 secs Total Score Joy Total Score (out of 56 points) 45 Joy Impairment Rating 1 to 19% Impaired (Score 45-55 ) Islas Fall Scale Copyright Permission PT-OP-E Functional Tests Start: 03/06/22 12:42 Freq: Status: Active Protocol: Document 03/17/22 13:47 LRN (Rec: 03/17/22 17:14 LRN [id number]) Functional Tests Dynamic Gait Index (DGI) Score 23 DGI Impairment Rating 1 to <20% Impaired (Score 20- 23) PT-OP-G Mobility & Gait Start: 03/06/22 12:42 Freq: Status: Active Protocol: Document 03/06/22 13:50 LRN (Rec: 03/06/22 18:58 LRN [id number]) OP Gait Assessment Gait Gait Assistance Required: Independent Assistive Devices Assistive Device None PT-OP-J Posture/Palpation/Skin Start: 03/06/22 12:42 Freq: Status: Active Protocol: Document 03/06/22 13:50 LRN (Rec: 03/06/22 18:58 LRN [id number]) Posture Evaluation Position Standing Head/C-Spine Posture Forward Head L-Spine Posture Decreased Lordosis Hip Posture (L) Externally Rotated,(R) Externally Rotated Comments Posture Comments Decreased thoracic curvature, mild anterior tilt of pelvis. PT-OP-K Range of Motion Start: 03/06/22 12:42 Freq: Status: Active Protocol: Document 03/06/22 13:50 LRN (Rec: 03/06/22 18:58 LRN [id number]) Ankle and Foot Goniometric Range of Motion Ankle and Foot Right Active Testing Position Supine Dorsiflexion with Knee Extended 5 Inversion 5 Comments Ankle AROM is approximated. Left Active Testing Position Supine Dorsiflexion with Knee Extended 7 Inversion 7 Comments Ankle AROM is approximated. PT-OP-M Strength Start: 03/06/22 12:42 Freq: Status: Active Protocol: Document 03/06/22 13:50 LRN (Rec: 03/06/22 18:58 LRN [id number]) Trunk Strength Trunk Manual Muscle Testing Core Stabilization Pt had difficulty maintaining a stable core during hip MMT. Comments Generally 5/5 Hip Strength Hip Manual Muscle Testing Right Flexion (L2) 4 Good Extension (S1) 3 Fair Adduction 4- Good- External Rotation 5 Normal Internal Rotation 5 Normal Left Flexion (L2) 4+ Good+ Abduction 3 Fair Adduction 4- Good- External Rotation 3+ Fair+ Internal Rotation 5 Normal Knee Strength Knee Manual Muscle Testing Right Flexion (S2) 5 Normal Extension (L3) 5 Normal Left Flexion (S2) 5 Normal Extension (L3) 5 Normal Ankle/Foot Strength Ankle and Foot Manual Muscle Testing Right Dorsiflexion (L4) 4+ Good+ Inversion 5 Normal Eversion (S1) 5 Normal Comments Strength is normal within available limited range. Left Dorsiflexion (L4) 4+ Good+ Inversion 5 Normal Eversion (S1) 5 Normal Comments Strength is normal within available limited range. PT-OP-Q Treatments Start: 03/06/22 12:42 Freq: Status: Active Protocol: Document 04/07/22 10:32 SP (Rec: 04/07/22 11:20 SP [id number]) Cardio Equipment Recumbent Stepper (Sci-Fit) Duration (Minutes) 6 Resistance 4 Seat Position 15 Other 50-60 rpm, 2.2 miles (POC work up to 10 min) Therapeutic Exercises Sitting Exercises HS stretch Sitting Exercise Name hip hinge Side bilateral Reps/Minutes 30 x2 Comments good feedback stretch Hip ER stretch Sitting Exercise Name Hip ER stretchn f/b active stretch Side bilateral Reps/Minutes 1' hold, f/b 10x active hip ER Comments good upright posture and hip ER vs use of hands to ER stretch Piriformis stretch Sitting Exercise Name Piriformis stretch Side bilateral Reps/Minutes 1' each Comments good form and proper stretch Sit to stand Sitting Exercise Name 30 Sit to Stand Equipment Used chair, arms across chest Reps/Minutes 13.5 reps in 30 Comments cued forward more to allow knees full ext x2 reps. Standing Exercises Hip Flexor stretch Standing Exercise Name Hip Flexor stretch Side left Equipment Used wall Reps/Minutes 1' Comments Cuing to get stretch, but pt not able to get obvious stretch Soleus stretch Standing Exercise Name Soleus stretch Side bilateral Equipment Used wall Reps/Minutes 1' Comments good form Gastroc stretch Standing Exercise Name Gastroc stretch Side bilateral Equipment Used wall Reps/Minutes 1' each Comments good form Neuro Re-Education Treatment Balance Activities chris stepping Details balance recovery Surface firm Equipment 6 hurdles, floor> green/blue oval cushions Reps/Duration 10 ft x4 laps Comments CGA> close SBA, step over step step ups Details LE strengthening, hip abd, quad and core stabililty Surface 6 step Equipment //bars, 6 step, 2# leg wts Reps/Duration 8 & 10 reps RLE, 2x10 LLE leading Comments stable, R knee little discomfort tweeked 1st set. step taps Details LE strengthening, hip abd and core stabililty Surface 6step Equipment in//bars PRN, not needed, 2# leg wts Reps/Duration 2x10 Comments SBA, stable, little SOB PT-OP-T Assessment and Plan Start: 03/06/22 12:42 Freq: Status: Active Protocol: Document 04/07/22 10:32 SP (Rec: 04/07/22 11:20 SP [id number]) Physical Therapy Assessment Goals Four Impairment Decreased balance placing pt at risk of falling Impairment Dizziness Questionnaire is 26 (20-39% impaired, score 20-39) JOY balance is 45 (1-19% impaired, 45-55) SLS is 7 secs R, 6 secs L. Tandem stance is: R foot behind 28 secs, L foot behind 4 secs. Short Term Goal (STG) Pt will demonstrate improved SLS or tandem stance to improve balance and pt risk of falling. STG Duration 04/22/22 Net Wpf Developer Goal (LTG) Improve balance per JOY score to no less than 50. LTG Duration 06/04/22 Three Impairment Decreased endurance Impairment [place] without having to stop at least once due to pain in the hips and lower leg/ feet. Net Wpf Developer Goal (LTG) Improve pt endurance with pt able to [place] without having to stop due to limiting pain in the hips, lower legs or feet. 04/07/22: states no change in needs stand stop stand 1 min about every minute for recovery after PT appt last. LTG Duration 06/04/22 (04/07/22) Two Impairment Decreased functional mobility Impairment Pt has difficulty kneeling and getting back up at anglican. ABC scale is 75 (20<20% impaired, 61-80) Short Term Goal (STG) Improve LE mobility with pt able to kneel and stand at anglican with greater ease and improved posture. 03/20/22: He is able to complete stand>1/2 kneel> tall kneel, maintain tall kneel but notices puts more WB on LLE due to RLE weakness, stronger and less UE support if LLE front to support director advertising 1/2 kneel. STG Duration 04/22/22 (progressin03/20/22 ) Half-Way Goal (LTG) Pt will improve function per ABC score of 81 or greater (1< 20% impaired). LTG Duration 06/04/22 One Impairment Lacks appropriate self care HEP Short Term Goal (STG) Pt will be independent with a HEP of strengthening and endurance exercise. STG Duration 03/19/22 Half-Way Goal (LTG) Pt will be independent with a HEP of balance and LE mobility ex's. (03/10/22: HEP: Standing Gastroc/Soleus & supine Ilipsoas stretch) (03/13/22: HEP: Hip stretches of ER-fig4 & ledoan BKFO/IR- piriformis/Hip AD, I/S for R TFL stretch, SKTC stretch).. 03/30/22: reviewed stretching, HEP with good form, added band walk for core/ hip abd, functional strengthening/ balance. LTG Duration 04/22/22 (03/20/22: Progressed) Assessment Summary Assessment Pt tolerated functional strengthening and balance today. Did have foot catch chris x2 but able to progress weighted step taps, step up/ downs and uneven surface hurdles stepping for strength and balance recovery to improve gait [place]. Pt required seated rests due to fasting today for MRI tomorrow late am so low endurance. Physical Therapy Plan Frequency and Duration Frequency of Treatment 2x/Week Plan of Care Start Date 03/06/22 Plan of Care End Date 06/04/22 Therapeutic Interventions Therapeutic Interventions Aquatic Therapy,Balance Training,Gait Training,Home Exercise Program,Joint Mobilizations,Manual Therapy, Neuromuscular Re-education, Patient/Caregiver Education, Self-Care/Home Management,Soft Tissue Mobilization, Therapeutic Activities, Therapeutic Exercises Modalities Cold Pack/Ice Massage,Hot Packs Next Visit Focus/Plan Next Note Type Treatment Note Next Visit Plan Check response to balance and stepping activities last tx. POC:Progressively increase aerobic exercise to 10' on Scifit with pt being able to pass talk test during exercise . Review hip AD stretch. Discuss use of his home ex equipment for appropriateness. Add HEP: Toe ext PROM & knee flex stretch (to make kneeling easier). Assess sensation in feet and palpate for areas of burning pain with gait HEP of hip, ankle strengthening/endurance (sit<> stands) and walking. Balance training (SLS, Tandem, etc). Pt education will be focused home exercises including balance exercises.
--- NOTE | 2022-04-10 10:33 | PT.OTN ---
Current Diagnoses Other abnormalities of gait and mobility (04/10/22) Weakness (04/10/22) Physical Therapy Treatment Note PT-OP-A Visit Information Start: 03/06/22 12:42 Freq: Status: Active Protocol: Document 04/10/22 09:49 SP (Rec: 04/10/22 10:35 SP [id number]) Out-Patient Physical Therapy Visit Information Visit Information Visit Type Treatment Note Visit Start Time 09:49 Visit Stop Time 10:33 Total Visit Minutes 44 Visit Number 8 Number of MANAGER CUSTOMER Visits 2 Evaluation Information Evaluation Date 03/06/22 Precautions Precautions Pt reports: Completed radiation treatment to prostate on 01/07/22, Blackouts over several years with last one 1.5 yrs ago, mini-stroke, L fx'd hip 2 yrs ago, 8 stents : 3 in neck and 5 in heart ( descending aorta) 4 yrs ago. 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 Intake form: Arterial disease , controlled HBP, arthritis, neuropathy of feet and hands, PT-OP-B Current Condition Start: 03/06/22 12:42 Freq: Status: Active Protocol: Document 03/06/22 13:50 LRN (Rec: 03/06/22 18:58 LRN [id number]) Current Condition History of Current Condition Onset Date 01/07/22 Current Complaints Weakness of legs from radiation treatments & Lupron injections History of Current Condition Walks 3 blocks to [employer] [place] and can only go 1 block the ankles and hips start to burn and must stop to wait. Pt spouse (Radha) who is a PT thinks it may be from arteries . Has done [facility] 3 yrs ago without pain in the legs with exercise. Since receiving Lupron injections ( to reduce testosterone) and radiation treatments he has had weakness in his legs and fatigue. Developmental History Developmental History Completed radiation treatment to prostate on 01/07/22. 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 Treatment Goals Patient/Caregiver Goals Pt goal is to measure strength and build it up again. Prior Functional Status Baseline Function- ADL's Independent Baseline Function- Mobility Independent Baseline Function- Gait Walked home with hips/ankles heating up and 3-4 stops/3 bks to walk home Current Functional Impairments (Reported) Functional Limitations- ADL's Weakness in ability to get medicine or pepsi bottle caps off. Able to do yardwork only 10-15 ' due to fatigue. Transfers sit<>stand causes heavy breathing sometimes. Neuropathy and electric shocks happens randomly mostly in the evening, several times a week. Functional Limitations- Mobility/Gait L>R Hips/ankles burn walking home with hips/ankles heating up and 1-2 stops/3 bks to walk home. 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 PT-OP-C Subjective Start: 03/06/22 12:42 Freq: Status: Active Protocol: Document 04/10/22 09:49 SP (Rec: 04/10/22 10:35 SP [id number]) OP-PT Subjective Patient Comments Patient Comments Pt stated his ultrasound showed good vascular flow and unsure why having claudication when waking up. States has body column and looking to sell to get TM. Neuropathy affects balance, endurance. 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 PT-OP-D Balance Start: 03/06/22 12:42 Freq: Status: Active Protocol: Document 03/06/22 13:50 LRN (Rec: 03/06/22 18:58 LRN [id number]) OP-PT Balance Assessment Sitting Balance Static Sitting Balance Ability Normal Dynamic Sitting Balance Ability Normal Standing Balance Static Standing Balance Ability Normal Balance Tests Joy Balance Test Joy Balance Test Score 45 Joy Impairment Rating 1 to 19% Impaired (Score 45-55 ) Functional Reach Functional Reach Test 14 Single Limb Standing Single Limb- Right 7 Single Limb- Left 6 Semi-Tandem Standing Semi-Tandem Standing Balance Tandem stance is: R foot behind 28 secs, L foot behind 4 secs. Joy Balance Assessment Evaluation Sitting to Standing Ability Independent w/out Hands Unsupported Stance Safely- 2 minutes Sitting Unsupported, Feet on Floor Safely- 2 minutes Standing to Sitting Ability Safely, Minimal Hand Use Unsupported Stance- Eyes Closed Supervision, 10 seconds Unsupported Stance- Eyes Open Independent, 1 minute Reaching Forward Standing Confidently, 10 inches Pick- Up Object From Floor Independent/Safe Look Behind Shoulder - Standing Turns Sideways Only Turning 360 Degrees Turns Bilateral, < 4 secs Unsupported Stance, Alternating Feet on (I)- 8 Steps in 20 secs Stair Unsupported Tandem Stance Assist to Step-15 seconds Unilateral Leg Stance Lifts Leg/Holds 5-10 secs Total Score Joy Total Score (out of 56 points) 45 Joy Impairment Rating 1 to 19% Impaired (Score 45-55 ) Islas Fall Scale Copyright Permission PT-OP-E Functional Tests Start: 03/06/22 12:42 Freq: Status: Active Protocol: Document 03/17/22 13:47 LRN (Rec: 03/17/22 17:14 LRN [id number]) Functional Tests Dynamic Gait Index (DGI) Score 23 DGI Impairment Rating 1 to <20% Impaired (Score 20- 23) PT-OP-G Mobility & Gait Start: 03/06/22 12:42 Freq: Status: Active Protocol: Document 03/06/22 13:50 LRN (Rec: 03/06/22 18:58 LRN [id number]) OP Gait Assessment Gait Gait Assistance Required: Independent Assistive Devices Assistive Device None PT-OP-J Posture/Palpation/Skin Start: 03/06/22 12:42 Freq: Status: Active Protocol: Document 03/06/22 13:50 LRN (Rec: 03/06/22 18:58 LRN [id number]) Posture Evaluation Position Standing Head/C-Spine Posture Forward Head L-Spine Posture Decreased Lordosis Hip Posture (L) Externally Rotated,(R) Externally Rotated Comments Posture Comments Decreased thoracic curvature, mild anterior tilt of pelvis. PT-OP-K Range of Motion Start: 03/06/22 12:42 Freq: Status: Active Protocol: Document 03/06/22 13:50 LRN (Rec: 03/06/22 18:58 LRN [id number]) Ankle and Foot Goniometric Range of Motion Ankle and Foot Right Active Testing Position Supine Dorsiflexion with Knee Extended 5 Inversion 5 Comments Ankle AROM is approximated. Left Active Testing Position Supine Dorsiflexion with Knee Extended 7 Inversion 7 Comments Ankle AROM is approximated. PT-OP-M Strength Start: 03/06/22 12:42 Freq: Status: Active Protocol: Document 03/06/22 13:50 LRN (Rec: 03/06/22 18:58 LRN [id number]) Trunk Strength Trunk Manual Muscle Testing Core Stabilization Pt had difficulty maintaining a stable core during hip MMT. Comments Generally 5/5 Hip Strength Hip Manual Muscle Testing Right Flexion (L2) 4 Good Extension (S1) 3 Fair Adduction 4- Good- External Rotation 5 Normal Internal Rotation 5 Normal Left Flexion (L2) 4+ Good+ Abduction 3 Fair Adduction 4- Good- External Rotation 3+ Fair+ Internal Rotation 5 Normal Knee Strength Knee Manual Muscle Testing Right Flexion (S2) 5 Normal Extension (L3) 5 Normal Left Flexion (S2) 5 Normal Extension (L3) 5 Normal Ankle/Foot Strength Ankle and Foot Manual Muscle Testing Right Dorsiflexion (L4) 4+ Good+ Inversion 5 Normal Eversion (S1) 5 Normal Comments Strength is normal within available limited range. Left Dorsiflexion (L4) 4+ Good+ Inversion 5 Normal Eversion (S1) 5 Normal Comments Strength is normal within available limited range. PT-OP-Q Treatments Start: 03/06/22 12:42 Freq: Status: Active Protocol: Document 04/10/22 09:49 SP (Rec: 04/10/22 10:35 SP [id number]) Cardio Equipment Recumbent Elliptical (Biodex) Duration (Minutes) 5 Resistance 6 Seat Position 13 Other UEs/ LEs 523 steps, 50 RPMs- stopped due to tiring, try treadmill per Treadmill Duration (Minutes) 2 Speed .8-1.1 Incline 0 Other burning in feet at 1m45s, cued for longer stride, heel toe, L hip dec stce Therapeutic Exercises Sitting Exercises ankle 3 way Sitting Exercise Name added to HEP: PF, DF, EV Side bilateral Resistance TB #4 Reps/Minutes 2x10 Comments cued slow pacing ecc Sit to stand Sitting Exercise Name 30 Sit to Stand Equipment Used chair, arms across chest Reps/Minutes reps in 30 Comments cued forward more to allow knees full ext x2 reps. Neuro Re-Education Treatment Balance Activities SLS Equipment rail nearby Reps/Duration LLE 28s, RLE 32s chris stepping Details balance recovery Surface firm Equipment 6 hurdles, floor> green/blue/ ruvalcaba oval cushions Reps/Duration 10 ft x5 laps Comments CGA> close SBA, step over step , decrease LLE stability improves with decrease pacing and alignment, LOB x4 rail recovery, RLE foot caught chris x2 Self-Care/Home Management Treatment Education Patient Education Home Exercise Program,Posture, Safety Other Education Added 3 way ankle for L>R LE, SLS for improvement in stability over uneven surfaces , noted during obstacle course , decrease LLE stance time. PT-OP-T Assessment and Plan Start: 03/06/22 12:42 Freq: Status: Active Protocol: Document 04/10/22 09:49 SP (Rec: 04/10/22 10:35 SP [id number]) Physical Therapy Assessment Goals Four Impairment Decreased balance placing pt at risk of falling Impairment Dizziness Questionnaire is 26 (20-39% impaired, score 20-39) JOY balance is 45 (1-19% impaired, 45-55) SLS is 7 secs R, 6 secs L. Tandem stance is: R foot behind 28 secs, L foot behind 4 secs. Short Term Goal (STG) Pt will demonstrate improved SLS or tandem stance to improve balance and pt risk of falling. 04/10/22: Progressing:LLE 28s, RLE 32s STG Duration 04/22/22 progressing 04/10/22 Medicaid Billing Specialist Goal (LTG) Improve balance per JOY score to no less than 50. LTG Duration 06/04/22 Three Impairment Decreased endurance Impairment [place] having to stop at least once due to pain in the hips and lower leg/ feet. Correction Goal (LTG) Improve pt endurance with pt able [place] without having to stop due to limiting pain in the hips, lower legs or feet. 04/07/22: states no change in needs stand stop stand 1 min about every minute for recovery after PT appt last. LTG Duration 06/04/22 (04/07/22) Two Impairment Decreased functional mobility Impairment Pt has difficulty kneeling and getting back up at jainism. ABC scale is 75 (20<20% impaired, 61-80) Short Term Goal (STG) Improve LE mobility with pt able to kneel and stand at jainism with greater ease and improved posture. 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 STG Duration 04/22/22 (progressin03/20/22 ) Medicaid Billing Specialist Goal (LTG) Pt will improve function per ABC score of 81 or greater (1< 20% impaired). LTG Duration 06/04/22 One Impairment Lacks appropriate self care HEP Short Term Goal (STG) Pt will be independent with a HEP of strengthening and endurance exercise. STG Duration 03/19/22 Medicaid Billing Specialist Goal (LTG) Pt will be independent with a HEP of balance and LE mobility ex's. (03/10/22: HEP: Standing Gastroc/Soleus & supine Ilipsoas stretch) (03/13/22: HEP: Hip stretches of ER-fig4 & leodan BKFO/IR- piriformis/Hip AD, I/S for R TFL stretch, SKTC stretch).. 03/30/22: reviewed stretching, HEP with good form, added band walk for core/ hip abd, functional strengthening/ balance. 04/10/22: added 3 way ankle on L , SLS and reviewed is doing STS at home without UE support . LTG Duration 04/22/22 (04/10/22: Progressed ) Assessment Summary Assessment Pt worked hard this tx, extra time spent on obstacle course with education on L hip abd/ core and ankle stabililty, provided 3 way ankle TB to HEP for strengthening support. Pt reports has been doing stretching HEP, did not perform today. Physical Therapy Plan Frequency and Duration Frequency of Treatment 2x/Week Plan of Care Start Date 03/06/22 Plan of Care End Date 06/04/22 Therapeutic Interventions Therapeutic Interventions Aquatic Therapy,Balance Training,Gait Training,Home Exercise Program,Joint Mobilizations,Manual Therapy, Neuromuscular Re-education, Patient/Caregiver Education, Self-Care/Home Management,Soft Tissue Mobilization, Therapeutic Activities, Therapeutic Exercises Modalities Cold Pack/Ice Massage,Hot Packs Next Visit Focus/Plan Next Note Type Treatment Note Next Visit Plan Recheck TM gait analysis next tx with PT, per request, see note scanned in. Continue per POC: POC:Progressively increase aerobic exercise to 10' on Scifit with pt being able to pass talk test during exercise . Review hip AD stretch. Discuss use of his home ex equipment for appropriateness. Add HEP: Toe ext PROM & knee flex stretch (to make kneeling easier). Assess sensation in feet and palpate for areas of burning pain with gait HEP of hip, ankle strengthening/endurance (sit<> stands) and walking. Balance training (SLS, Tandem, etc). Pt education will be focused home exercises including balance exercises.
--- NOTE | 2022-04-14 09:50 | PT.OTN ---
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 Intake form: Arterial disease , controlled HBP, arthritis, neuropathy of feet and hands, PT-OP-B Current Condition Start: 03/06/22 12:42 Freq: Status: Active Protocol: Document 03/06/22 13:50 LRN (Rec: 03/06/22 18:58 LRN [id number]) Current Condition History of Current Condition Onset Date 01/07/22 Current Complaints Weakness of legs from radiation treatments & Lupron injections History of Current Condition Walks 3 blocks to [employer] [place] and can only go 1 block the ankles and hips start to burn and must stop to wait. Pt spouse (Radha) who is a PT thinks it may be from arteries . Has done [facility] 3 yrs ago without pain in the legs with exercise. Since receiving Lupron injections ( to reduce testosterone) and radiation treatments he has had weakness in his legs and fatigue. Developmental History Developmental History Completed radiation treatment to prostate on 01/07/22. 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 Treatment Goals Patient/Caregiver Goals Pt goal is to measure strength and build it up again. Prior Functional Status Baseline Function- ADL's Independent Baseline Function- Mobility Independent Baseline Function- Gait Walked home with hips/ankles heating up and 3-4 stops/3 bks to walk home Current Functional Impairments (Reported) Functional Limitations- ADL's Weakness in ability to get medicine or pepsi bottle caps off. Able to do yardwork only 10-15 ' due to fatigue. Transfers sit<>stand causes heavy breathing sometimes. Neuropathy and electric shocks happens randomly mostly in the evening, several times a week. Functional Limitations- Mobility/Gait L>R Hips/ankles burn walking home with hips/ankles heating up and 1-2 stops/3 bks to walk home. 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 PT-OP-C Subjective Start: 03/06/22 12:42 Freq: Status: Active Protocol: Document 04/14/22 09:05 SP (Rec: 04/14/22 09:51 SP [id number]) OP-PT Subjective Patient Comments Patient Comments Pt states walking on [place] is ok decline but upgrade off gets his ankles burning quickly. He stated worked in the yard over the weekend and has some inclines, slow moving up hill. PT-OP-D Balance Start: 03/06/22 12:42 Freq: Status: Active Protocol: Document 03/06/22 13:50 LRN (Rec: 03/06/22 18:58 LRN [id number]) OP-PT Balance Assessment Sitting Balance Static Sitting Balance Ability Normal Dynamic Sitting Balance Ability Normal Standing Balance Static Standing Balance Ability Normal Balance Tests Joy Balance Test Joy Balance Test Score 45 Joy Impairment Rating 1 to 19% Impaired (Score 45-55 ) Functional Reach Functional Reach Test 14 Single Limb Standing Single Limb- Right 7 Single Limb- Left 6 Semi-Tandem Standing Semi-Tandem Standing Balance Tandem stance is: R foot behind 28 secs, L foot behind 4 secs. Joy Balance Assessment Evaluation Sitting to Standing Ability Independent w/out Hands Unsupported Stance Safely- 2 minutes Sitting Unsupported, Feet on Floor Safely- 2 minutes Standing to Sitting Ability Safely, Minimal Hand Use Unsupported Stance- Eyes Closed Supervision, 10 seconds Unsupported Stance- Eyes Open Independent, 1 minute Reaching Forward Standing Confidently, 10 inches Pick- Up Object From Floor Independent/Safe Look Behind Shoulder - Standing Turns Sideways Only Turning 360 Degrees Turns Bilateral, < 4 secs Unsupported Stance, Alternating Feet on (I)- 8 Steps in 20 secs Stair Unsupported Tandem Stance Assist to Step-15 seconds Unilateral Leg Stance Lifts Leg/Holds 5-10 secs Total Score Joy Total Score (out of 56 points) 45 Joy Impairment Rating 1 to 19% Impaired (Score 45-55 ) Islas Fall Scale Copyright Permission PT-OP-E Functional Tests Start: 03/06/22 12:42 Freq: Status: Active Protocol: Document 03/17/22 13:47 LRN (Rec: 03/17/22 17:14 LRN [id number]) Functional Tests Dynamic Gait Index (DGI) Score 23 DGI Impairment Rating 1 to <20% Impaired (Score 20- 23) PT-OP-G Mobility & Gait Start: 03/06/22 12:42 Freq: Status: Active Protocol: Document 03/06/22 13:50 LRN (Rec: 03/06/22 18:58 LRN [id number]) OP Gait Assessment Gait Gait Assistance Required: Independent Assistive Devices Assistive Device None PT-OP-J Posture/Palpation/Skin Start: 03/06/22 12:42 Freq: Status: Active Protocol: Document 03/06/22 13:50 LRN (Rec: 03/06/22 18:58 LRN [id number]) Posture Evaluation Position Standing Head/C-Spine Posture Forward Head L-Spine Posture Decreased Lordosis Hip Posture (L) Externally Rotated,(R) Externally Rotated Comments Posture Comments Decreased thoracic curvature, mild anterior tilt of pelvis. PT-OP-K Range of Motion Start: 03/06/22 12:42 Freq: Status: Active Protocol: Document 03/06/22 13:50 LRN (Rec: 03/06/22 18:58 LRN [id number]) Ankle and Foot Goniometric Range of Motion Ankle and Foot Right Active Testing Position Supine Dorsiflexion with Knee Extended 5 Inversion 5 Comments Ankle AROM is approximated. Left Active Testing Position Supine Dorsiflexion with Knee Extended 7 Inversion 7 Comments Ankle AROM is approximated. PT-OP-M Strength Start: 03/06/22 12:42 Freq: Status: Active Protocol: Document 03/06/22 13:50 LRN (Rec: 03/06/22 18:58 LRN [id number]) Trunk Strength Trunk Manual Muscle Testing Core Stabilization Pt had difficulty maintaining a stable core during hip MMT. Comments Generally 5/5 Hip Strength Hip Manual Muscle Testing Right Flexion (L2) 4 Good Extension (S1) 3 Fair Adduction 4- Good- External Rotation 5 Normal Internal Rotation 5 Normal Left Flexion (L2) 4+ Good+ Abduction 3 Fair Adduction 4- Good- External Rotation 3+ Fair+ Internal Rotation 5 Normal Knee Strength Knee Manual Muscle Testing Right Flexion (S2) 5 Normal Extension (L3) 5 Normal Left Flexion (S2) 5 Normal Extension (L3) 5 Normal Ankle/Foot Strength Ankle and Foot Manual Muscle Testing Right Dorsiflexion (L4) 4+ Good+ Inversion 5 Normal Eversion (S1) 5 Normal Comments Strength is normal within available limited range. Left Dorsiflexion (L4) 4+ Good+ Inversion 5 Normal Eversion (S1) 5 Normal Comments Strength is normal within available limited range. PT-OP-Q Treatments Start: 03/06/22 12:42 Freq: Status: Active Protocol: Document 04/14/22 09:05 SP (Rec: 04/14/22 09:51 SP [id number]) Cardio Equipment Recumbent Elliptical (Biodex) Duration (Minutes) 9 Resistance 6 Seat Position 13 Other UEs LEs, 55RPM, 932 total steps Therapeutic Exercises Standing Exercises band walk Standing Exercise Name Band Walk- reviewed Resistance TB #3 loop ( GTB in PT) Equipment Used //bar PRN if needed Reps/Minutes 10 ft x4 laps f/b/s Comments cued feet // and apart, upright posture, ecc control Neuro Re-Education Treatment Balance Activities tandem balance Details balance recovery- instructed do in corner at home Equipment //bars PRN, 2 oval blue cushions Reps/Duration instructed do in corner at back/chair front Comments tandem EO: 60s EC: LOB at 2 sec CGA and //bar assist both foot positions * see HO SLS Details instructed do in corner at back/chair front at home 2-3x daily Equipment counter in front mirror Reps/Duration 04/10/22LLE 28s, RLE 32s Comments 04/14/22: 6s R and LLE- not as good today. Cued upright posture over stance LE, rhomboid/core fac, challenged with maintaining due to hip abd weakness B today. Self-Care/Home Management Treatment Education Patient Education Body Mechanics,Home Exercise Program,Posture,Safety Other Education added tandem, SLS instructed perform in corner chair front and resisted shld ext to fac core and postural alignment for improved balance- see HO given. PT-OP-T Assessment and Plan Start: 03/06/22 12:42 Freq: Status: Active Protocol: Document 04/14/22 09:05 SP (Rec: 04/14/22 09:51 SP [id number]) Physical Therapy Assessment Goals Four Impairment Decreased balance placing pt at risk of falling Impairment Dizziness Questionnaire is 26 (20-39% impaired, score 20-39) JOY balance is 45 (1-19% impaired, 45-55) SLS is 7 secs R, 6 secs L. Tandem stance is: R foot behind 28 secs, L foot behind 4 secs. Short Term Goal (STG) Pt will demonstrate improved SLS or tandem stance to improve balance and pt risk of falling. 04/10/22: Progressing:LLE 28s, RLE 32s 04/14/22: balance not as good today up to 6sec eachLE today. STG Duration 04/22/22 progressing 04/14/22 Longterm Goal (LTG) Improve balance per JOY score to no less than 50. LTG Duration 06/04/22 Three Impairment Decreased endurance Impairment Pt [place] without having to stop at least once due to pain in the hips and lower leg/ feet. Longterm Goal (LTG) Improve pt endurance with pt able [place] without having to stop due to limiting pain in the hips, lower legs or feet. 04/07/22: states no change in needs stand stop stand 1 min about every minute for recovery after PT appt last. 04/14/22: [place] decline but upgrade off gets his ankles burning quickly, worked in the yard over the weekend and has some inclines, slow moving up hill. LTG Duration 06/04/22 (04/14/22) Two Impairment Decreased functional mobility Impairment Pt has difficulty kneeling and getting back up at [employer]. ABC scale is 75 (20<20% impaired, 61-80) Short Term Goal (STG) Improve LE mobility with pt able to kneel and stand at [employer] with greater ease and improved posture. 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 04/14/22: progressing has been singing in choir so not enough room to kneel so hasn't tried . STG Duration 04/22/22 (progressin04/14/22 ) Longterm Goal (LTG) Pt will improve function per ABC score of 81 or greater (1< 20% impaired). LTG Duration 06/04/22 One Impairment Lacks appropriate self care HEP Short Term Goal (STG) Pt will be independent with a HEP of strengthening and endurance exercise. STG Duration 03/19/22 Longterm Goal (LTG) Pt will be independent with a HEP of balance and LE mobility ex's. (03/10/22: HEP: Standing Gastroc/Soleus & supine Ilipsoas stretch) (03/13/22: HEP: Hip stretches of ER-fig4 & leodan BKFO/IR- piriformis/Hip AD, I/S for R TFL stretch, SKTC stretch).. 03/30/22: reviewed stretching, HEP with good form, added band walk for core/ hip abd, functional strengthening/ balance. 04/10/22: added 3 way ankle on L , SLS and reviewed is doing STS at home without UE support . 04/14/22: added resisted shld ext, corner balance: SLS, tandem for self application progressing at home. LTG Duration 04/22/22 (04/14/22: Progressing) Assessment Summary Assessment Tx focused on aerobic bike, balance, feedback to progress making with goals. Pt stood for most of standind activities without seated rest after bike. Pt demonstrates hip abd weakness so focused on activities to improve this and discussed continue at home . Pt reported hotflash like symptome end tx so assessed vitals: normal range BP 128/73 , HR 74 SaO2 96% on RA. He reports physican is aware and was told can happen at times. CERTIFIED MASTER SAFECRACKER provided rest end tx with hydration, reported felt better. Didn't get to stretching HEP today, pt stated doing well with at home and will perform later. Physical Therapy Plan Frequency and Duration Frequency of Treatment 2x/Week Plan of Care Start Date 03/06/22 Plan of Care End Date 06/04/22 Therapeutic Interventions Therapeutic Interventions Aquatic Therapy,Balance Training,Gait Training,Home Exercise Program,Joint Mobilizations,Manual Therapy, Neuromuscular Re-education, Patient/Caregiver Education, Self-Care/Home Management,Soft Tissue Mobilization, Therapeutic Activities, Therapeutic Exercises Modalities Cold Pack/Ice Massage,Hot Packs Next Visit Focus/Plan Next Note Type Treatment Note Next Visit Plan Recheck shld ext, SLS level/ Tandem uneven surface, ankle TB HEP. TM gait analysis next tx with PT, per request , see note scanned in/ personal PT chart. Continue per POC: POC:Progressively increase aerobic exercise to 10' on [employer] with pt being able to pass talk test during exercise . Review hip AD stretch. Discuss use of his home ex equipment for appropriateness. Add HEP: Toe ext PROM & knee flex stretch (to make kneeling easier). Assess sensation in feet and palpate for areas of burning pain with gait HEP of hip, ankle strengthening/endurance (sit<> stands) and walking. Balance training (SLS, Tandem, etc). Pt education will be focused home exercises including balance exercises.
--- NOTE | 2022-04-22 17:35 | PT.OTN ---
Current Diagnoses Other abnormalities of gait and mobility (04/22/22) Weakness (04/22/22) Physical Therapy Treatment Note PT-OP-A Visit Information Start: 03/06/22 12:42 Freq: Status: Active Protocol: Document 04/22/22 09:11 LRN (Rec: 04/22/22 09:56 LRN [id number]) Out-Patient Physical Therapy Visit Information Visit Information Visit Type Progress Note Visit Start Time 09:12 Visit Stop Time 09:52 Total Visit Minutes 40 Visit Number 10 Evaluation Information Evaluation Date 03/06/22 Precautions Precautions Pt reports: Completed radiation treatment to prostate on 01/07/22, Blackouts over several years with last one 1.5 yrs ago, mini-stroke, L fx'd hip 2 yrs ago, 8 stents : 3 in neck and 5 in heart ( descending aorta) 4 yrs ago. 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 Intake form: Arterial disease , controlled HBP, arthritis, neuropathy of feet and hands, PT-OP-B Current Condition Start: 03/06/22 12:42 Freq: Status: Active Protocol: Document 03/06/22 13:50 LRN (Rec: 03/06/22 18:58 LRN [id number]) Current Condition History of Current Condition Onset Date 01/07/22 Current Complaints Weakness of legs from radiation treatments & Lupron injections History of Current Condition [place] go 1 block the ankles and hips start to burn and must stop to wait. Pt spouse (Radha) who is a PT thinks it may be from arteries . Has done [facility] rehab 3 yrs ago without pain in the legs with exercise. Since receiving Lupron injections ( to reduce testosterone) and radiation treatments he has had weakness in his legs and fatigue. Developmental History Developmental History Completed radiation treatment to prostate on 01/07/22. 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 Treatment Goals Patient/Caregiver Goals Pt goal is to measure strength and build it up again. Prior Functional Status Baseline Function- ADL's Independent Baseline Function- Mobility Independent Baseline Function- Gait Walked home with hips/ankles heating up and 3-4 stops/3 bks to walk home Current Functional Impairments (Reported) Functional Limitations- ADL's Weakness in ability to get medicine or pepsi bottle caps off. Able to do yardwork only 10-15 ' due to fatigue. Transfers sit<>stand causes heavy breathing sometimes. Neuropathy and electric shocks happens randomly mostly in the evening, several times a week. Functional Limitations- Mobility/Gait L>R Hips/ankles burn walking home with hips/ankles heating up and 1-2 stops/3 bks to walk home. 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 PT-OP-C Subjective Start: 03/06/22 12:42 Freq: Status: Active Protocol: Document 04/22/22 09:11 LRN (Rec: 04/22/22 09:56 LRN [id number]) OP-PT Subjective Patient Comments Patient Comments States he feels he has progressed some but hasn't kept up on the ex's because he is working on upkeeping his place, but now can work 1-2 hrs before needing a break. At end of this week should be caught up and will have more time energy to do the ex's. Lately L calf pain and leodan ankle pains has caused him to stop twice yesterday walking home. Hips aren't as much as a problem, L hip pain is not causing him to stop when walking home. L hip pain is not as frequent. Waiting for referral for MRI of spine, but no appt yet made. Plans to start ex of silver sneakers ex on TM in 1-2 weeks. Patient Questionnaires ABC- Activity Specific Balance Confidence Scale ABC Score 91.25 ABC Functional Impairment 1 to <20% Impaired (Score 81- 99) Dizziness Handicap Inventory DHI Score 16 DHI Functional Impairment 1 to 19% Impaired (Score 1-19) PT-OP-D Balance Start: 03/06/22 12:42 Freq: Status: Active Protocol: Document 04/22/22 09:11 LRN (Rec: 04/22/22 09:56 LRN [id number]) Balance Tests Joy Balance Test Joy Balance Test Score 49 Joy Impairment Rating 1 to 19% Impaired (Score 45-55 ) Functional Reach Functional Reach Test 15 Functional Reach Impairment Rating 0% Impaired (Score 10) Single Limb Standing Single Limb- Right 6 Single Limb- Left 11 Tandem Tandem Standing R foot behind 60+ secs, L foot behind is 60+ secs Other Other Balance Tests Performed Arms crossesd across lower chest Joy Balance Assessment Evaluation Sitting to Standing Ability Independent w/out Hands Unsupported Stance Safely- 2 minutes Sitting Unsupported, Feet on Floor Safely- 2 minutes Standing to Sitting Ability Safely, Minimal Hand Use Transfer Ability Safely, Minimal Hand Use Unsupported Stance- Eyes Closed Safely, 10 seconds Unsupported Stance- Eyes Open Independent, 1 minute Reaching Forward Standing Confidently, 10 inches Pick- Up Object From Floor Independent/Safe Look Behind Shoulder - Standing Turns Sideways Only Turning 360 Degrees Turns , < 4 secs Unsupported Stance, Alternating Feet on (I)- 8 Steps in 20 secs Stair Unsupported Tandem Stance Assist to Step-15 seconds Unilateral Leg Stance Lifts Leg/Holds 5-10 secs Total Score Joy Total Score (out of 56 points) 49 Joy Impairment Rating 1 to 19% Impaired (Score 45-55 ) PT-OP-E Functional Tests Start: 03/06/22 12:42 Freq: Status: Active Protocol: Document 03/17/22 13:47 LRN (Rec: 03/17/22 17:14 [facility] [id number]) Functional Tests Dynamic Gait Index (DGI) Score 23 DGI Impairment Rating 1 to <20% Impaired (Score 20- 23) PT-OP-G Mobility & Gait Start: 03/06/22 12:42 Freq: Status: Active Protocol: Document 03/06/22 13:50 LRN (Rec: 03/06/22 18:58 [facility] [id number]) OP Gait Assessment Gait Gait Assistance Required: Independent Assistive Devices Assistive Device None PT-OP-J Posture/Palpation/Skin Start: 03/06/22 12:42 Freq: Status: Active Protocol: Document 03/06/22 13:50 LRN (Rec: 03/06/22 18:58 [facility] [id number]) Posture Evaluation Position Standing Head/C-Spine Posture Forward Head L-Spine Posture Decreased Lordosis Hip Posture (L) Externally Rotated,(R) Externally Rotated Comments Posture Comments Decreased thoracic curvature, mild anterior tilt of pelvis. PT-OP-K Range of Motion Start: 03/06/22 12:42 Freq: Status: Active Protocol: Document 03/06/22 13:50 LRN (Rec: 03/06/22 18:58 LRN [id number]) Ankle and Foot Goniometric Range of Motion Ankle and Foot Right Active Testing Position Supine Dorsiflexion with Knee Extended 5 Inversion 5 Comments Ankle AROM is approximated. Left Active Testing Position Supine Dorsiflexion with Knee Extended 7 Inversion 7 Comments Ankle AROM is approximated. PT-OP-M Strength Start: 03/06/22 12:42 Freq: Status: Active Protocol: Document 03/06/22 13:50 LRN (Rec: 03/06/22 18:58 LRN [id number]) Trunk Strength Trunk Manual Muscle Testing Core Stabilization Pt had difficulty maintaining a stable core during hip MMT. Comments Generally 5/5 Hip Strength Hip Manual Muscle Testing Right Flexion (L2) 4 Good Extension (S1) 3 Fair Adduction 4- Good- External Rotation 5 Normal Internal Rotation 5 Normal Left Flexion (L2) 4+ Good+ Abduction 3 Fair Adduction 4- Good- External Rotation 3+ Fair+ Internal Rotation 5 Normal Knee Strength Knee Manual Muscle Testing Right Flexion (S2) 5 Normal Extension (L3) 5 Normal Left Flexion (S2) 5 Normal Extension (L3) 5 Normal Ankle/Foot Strength Ankle and Foot Manual Muscle Testing Right Dorsiflexion (L4) 4+ Good+ Inversion 5 Normal Eversion (S1) 5 Normal Comments Strength is normal within available limited range. Left Dorsiflexion (L4) 4+ Good+ Inversion 5 Normal Eversion (S1) 5 Normal Comments Strength is normal within available limited range. PT-OP-Q Treatments Start: 03/06/22 12:42 Freq: Status: Active Protocol: Document 04/22/22 09:11 LRN (Rec: 04/22/22 09:56 LRN [id number]) Therapeutic Exercises Sitting Exercises Knee strengthening Sitting Exercise Name Knee flex/ext Side right Equipment Used Lev 2 TB, double banded. Reps/Minutes Flexion: 10x 2 + 7x; Ext: 10x [address] Sitting Exercise Name EV, DF. IV Side left Resistance TB 2 single banded Reps/Minutes 10x 3 Sit to stand Sitting Exercise Name Sit > Standing hold Reps/Minutes 4' Neuro Re-Education Treatment Balance Activities Stand Reach Details R arm Reach: for balance training Surface Firm Reps/Duration 3' Comments Extra time for training to keep arm level with shoulder. 360 deg turning Details 360 degree turning - bilaterally Surface Firm Reps/Duration x 2 Standing EO/EC Details Standing EO/EC feet together/ feet apart Reps/Duration 10' Standing looking behind Details Looking behind for balance training - Bilaterally Surface Firm Equipment None tandem balance Details Tandem stance Surface Firm Comments EO: 60 secs bilaterally; arms crossed across at elbow height SLS Details SLS Surface Firm Comments SLS 6 secs Rgiht, 11 secs Left step ups Details LE strengthening, hip abd, quad and core stabililty Surface 6 step Equipment 6 step Reps/Duration 8 & 10 reps Comments No use of railing. PT-OP-T Assessment and Plan Start: 03/06/22 12:42 Freq: Status: Active Protocol: Document 04/22/22 09:11 LRN (Rec: 04/22/22 09:56 LRN [id number]) Physical Therapy Assessment Rehab Potential Rehabilitation Potential Good Evaluation Complexity Number of Personal Factors/Comorbidities 1-2 Number of Body Systems Impaired 4 or More Clinical Presentation at Evaluation Evolving Impairments Impairments Activity Tolerance,Balance, Functional Activities, Functional Mobility,Pain, Posture,ROM,Sensation,Soft Tissue Mobility,Strength Goals Four Impairment Decreased balance placing pt at risk of falling Impairment Dizziness Questionnaire is 26 (20-39% impaired, score 20-39) JOY balance is 45 (1-19% impaired, 45-55) SLS is 7 secs R, 6 secs L. Tandem stance is: R foot behind 28 secs, L foot behind 4 secs. Short Term Goal (STG) Pt will demonstrate improved SLS or tandem stance to improve balance and pt risk of falling. 04/10/22: Progressing:LLE 28s, RLE 32s 04/14/22: balance not as good today up to 6sec eachLE today. (04/22/22: SLS: 6 secs R, 11 sec L; Tandem stance: 60 secs leodan with arms across) STG Duration 04/22/22 (04/22/22: MET GOAL except for SLS on RLE was less) Key Holder Goal (LTG) Improve balance per JOY score to no less than 50. (04/22/22: JOY score is 49) LTG Duration 06/04/22 (04/22/22: Progressing) Three Impairment Decreased endurance Impairment Pt not able to walk from ferry to home without having to stop at least once due to pain in the hips and lower leg/ feet. (04/22/22: Couple times able to walk home without stopping, but yesterday needed to stop twice). Key Holder Goal (LTG) Improve pt endurance with pt able to walk from ferry to home without having to stop due to limiting pain in the hips, lower legs or feet. 04/07/22: states no change in needs stand stop stand 1 min about every minute for recovery after PT appt last. 04/14/22: pt states walking on ferry is ok decline but upgrade off gets his ankles burning quickly, worked in the yard over the weekend and has some inclines, slow moving up hill. (04/22/22: Pt able to walk from ferry to home x2 without having to stop) LTG Duration 06/04/22 (04/22/22: Pt able to achieve goal 2 days over past 2 weeks) Two Impairment Decreased functional mobility Impairment Pt has difficulty kneeling and getting back up at [facility]. ABC scale is 75 (20<20% impaired, 61-80) Short Term Goal (STG) Improve LE mobility with pt able to kneel and stand at protest[facility] with greater ease and improved posture. 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 04/14/22: progressing has been singing in choir so not enough room to kneel so hasn't tried . STG Duration 04/22/22 (progressin04/14/22 ) Alf Goal (LTG) Pt will improve function per ABC score of 81 or greater (1< 20% impaired). (04/22/22: ABC Score - 91.25, 1<20% impaired) LTG Duration 06/04/22 (04/22/22: MET GOAL) One Impairment Lacks appropriate self care HEP Short Term Goal (STG) Pt will be independent with a HEP of strengthening and endurance exercise. STG Duration 03/19/22 Key Holder Goal (LTG) Pt will be independent with a HEP of balance and LE mobility ex's. (03/10/22: HEP: Standing Gastroc/Soleus & supine Ilipsoas stretch) (03/13/22: HEP: Hip stretches of ER-fig4 & leodan BKFO/IR- piriformis/Hip AD, I/S for R TFL stretch, SKTC stretch).. 03/30/22: reviewed stretching, HEP with good form, added band walk for core/ hip abd, functional strengthening/ balance. 04/10/22: added 3 way ankle on L , SLS and reviewed is doing STS at home without UE support . 04/14/22: added resisted shld ext, corner balance: SLS, tandem for self application progressing at home. LTG Duration 04/22/22 (04/14/22: Progressing) Assessment Summary Assessment Pt has made very good progress . He has improved his balance per tandem stance and JOY balance score. He shows deficit with SLS; therefore improvement in this area would be beneficial to improve the pt's safety and stability with gait and to decrease his risk of falling. He has shown good improvement with his endurance and ability [place] a couple times without having to stop for rest or pain. His home function has improved per ABC Scale, but pt could benefit from further therapy to improve his ability and ease of getting up/down from a kneeling position. The pt admitted to not being as consistent with his home exercises as he should, but has stated soon he will have less commitments and hopes to be able to focus more on his home program; therefore it is recommended the pt continue therapy to improve his balance , functional mobility, endurance, general mobility to improve functional mobility. Once the pt can be more consistent and independent with his home program we will decrease therapy to 1x/week. Physical Therapy Plan Frequency and Duration Frequency of Treatment 2x/Week Plan of Care Start Date 04/22/22 Plan of Care End Date 07/01/22 Therapeutic Interventions Therapeutic Interventions Aquatic Therapy,Balance Training,Gait Training,Home Exercise Program,Joint Mobilizations,Manual Therapy, Neuromuscular Re-education, Patient/Caregiver Education, Self-Care/Home Management,Soft Tissue Mobilization, Therapeutic Activities, Therapeutic Exercises Modalities Cold Pack/Ice Massage,Hot Packs Next Visit Focus/Plan Next Note Type Treatment Note Next Visit Plan Recheck shld ext; SLS level/ Tandem uneven surface, add HEP : ankle TB strengthening. TM gait analysis with PT, per request 04/10, see note scanned in/personal PT chart. Continue per POC: Focus to be on improving LE/trunk mobility for ease of getting up/down from kneeling and to improve ambulatory endurance ( and ankle strength) and balance. Progressively increase aerobic exercise to 10' on Scifit with pt being able to pass talk test during exercise. Review hip AD stretch. Discuss use of his home ex equipment for appropriateness. Add HEP: Toe ext PROM & knee flex stretch (to make kneeling easier). Assess sensation in feet and palpate for areas of burning pain with gait HEP of hip, ankle strengthening/endurance and walking. Balance training (SLS, Tandem, etc). Pt education will be focused home exercises including balance exercises.
--- NOTE | 2022-05-06 18:08 | PT-OP ANOTE ---
16:44. Per phone, Spouse reports Guero wanted her to discuss results of Dr. Tee visit and for discussion so that she can explain to him medical dealings. She states he was told he did not have vascular claudication causing his lower leg pain with walking home from [facility]. He had an MRI 2 days ago and requested therapist look at results. She and spouse was told he had severe disc bulge and canal stenosis. Pt will be seeing Dr. Tee in 2 days (appt 3:30) and has appt with PT day after MD appt. She is hoping to discuss while in PT what patient can do now that the pain in his legs do not seem vascular in nature. I requested spouse be present during pt's therapy if discussion is needed on pt care. Spouse agreeable.
--- NOTE | 2022-05-16 12:31 | PT.OTN ---
Current Diagnoses Other abnormalities of gait and mobility (05/16/22) Weakness (05/16/22) Physical Therapy Treatment Note PT-OP-A Visit Information Start: 03/06/22 12:42 Freq: Status: Active Protocol: Document 05/16/22 11:21 LRN (Rec: 05/16/22 12:29 LRN [id number]) Out-Patient Physical Therapy Visit Information Visit Information Visit Type Treatment Note Visit Note 11/11 after PN Visit Start Time 11:21 Visit Stop Time 12:08 Total Visit Minutes 47 Visit Number 11 Evaluation Information Evaluation Date 03/06/22 Precautions Precautions Pt reports: Completed radiation treatment to prostate on 01/07/22, Blackouts over several years with last one 1.5 yrs ago, mini-stroke, L fx'd hip 2 yrs ago, 8 stents : 3 in neck and 5 in heart ( descending aorta) 4 yrs ago. 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 Intake form: Arterial disease , controlled HBP, arthritis, neuropathy of feet and hands, PT-OP-B Current Condition Start: 03/06/22 12:42 Freq: Status: Active Protocol: Document 03/06/22 13:50 LRN (Rec: 03/06/22 18:58 LRN [id number]) Current Condition History of Current Condition Onset Date 01/07/22 Current Complaints Weakness of legs from radiation treatments & Lupron injections History of Current Condition [address] [employer] [place] and can only go 1 block the ankles and hips start to burn and must stop to wait. Pt spouse (Radha) who is a PT thinks it may be from arteries . Has done [facility] 3 yrs ago without pain in the legs with exercise. Since receiving Lupron injections ( to reduce testosterone) and radiation treatments he has had weakness in his legs and fatigue. Developmental History Developmental History Completed radiation treatment to prostate on 01/07/22. 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 Treatment Goals Patient/Caregiver Goals Pt goal is to measure strength and build it up again. Prior Functional Status Baseline Function- ADL's Independent Baseline Function- Mobility Independent Baseline Function- Gait Walked home with hips/ankles heating up and 3-4 stops/3 bks to walk home Current Functional Impairments (Reported) Functional Limitations- ADL's Weakness in ability to get medicine or pepsi bottle caps off. Able to do yardwork only 10-15 ' due to fatigue. Transfers sit<>stand causes heavy breathing sometimes. Neuropathy and electric shocks happens randomly mostly in the evening, several times a week. Functional Limitations- Mobility/Gait L>R Hips/ankles burn walking home with hips/ankles heating up and 1-2 stops/3 bks to walk home. 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 PT-OP-C Subjective Start: 03/06/22 12:42 Freq: Status: Active Protocol: Document 05/16/22 11:21 LRN (Rec: 05/16/22 12:29 LRN [id number]) OP-PT Subjective Patient Comments Patient Comments Pt brings in spouse copy of his MRI report with note and request to call her. Pt gives verbal agreement to having me discuss with his his condition. [place] and is worse now because tides are low. Stopped doing kneeling because in the choir. PT-OP-D Balance Start: 03/06/22 12:42 Freq: Status: Active Protocol: Document 04/22/22 09:11 LRN (Rec: 04/22/22 09:56 LRN [id number]) Balance Tests Joy Balance Test Joy Balance Test Score 49 Joy Impairment Rating 1 to 19% Impaired (Score 45-55 ) Functional Reach Functional Reach Test 15 Functional Reach Impairment Rating 0% Impaired (Score 10) Single Limb Standing Single Limb- Right 6 Single Limb- Left 11 Tandem Tandem Standing R foot behind 60+ secs, L foot behind is 60+ secs Other Other Balance Tests Performed Arms crossesd across lower chest Joy Balance Assessment Evaluation Sitting to Standing Ability Independent w/out Hands Unsupported Stance Safely- 2 minutes Sitting Unsupported, Feet on Floor Safely- 2 minutes Standing to Sitting Ability Safely, Minimal Hand Use Transfer Ability Safely, Minimal Hand Use Unsupported Stance- Eyes Closed Safely, 10 seconds Unsupported Stance- Eyes Open Independent, 1 minute Reaching Forward Standing Confidently, 10 inches Pick- Up Object From Floor Independent/Safe Look Behind Shoulder - Standing Turns Sideways Only Turning 360 Degrees Turns , < 4 secs Unsupported Stance, Alternating Feet on (I)- 8 Steps in 20 secs Stair Unsupported Tandem Stance Assist to Step-15 seconds Unilateral Leg Stance Lifts Leg/Holds 5-10 secs Total Score Joy Total Score (out of 56 points) 49 Joy Impairment Rating 1 to 19% Impaired (Score 45-55 ) PT-OP-E Functional Tests Start: 03/06/22 12:42 Freq: Status: Active Protocol: Document 03/17/22 13:47 LRN (Rec: 03/17/22 17:14 LRN [id number]) Functional Tests Dynamic Gait Index (DGI) Score 23 DGI Impairment Rating 1 to <20% Impaired (Score 20- 23) PT-OP-G Mobility & Gait Start: 03/06/22 12:42 Freq: Status: Active Protocol: Document 03/06/22 13:50 LRN (Rec: 03/06/22 18:58 LRN [id number]) OP Gait Assessment Gait Gait Assistance Required: Independent Assistive Devices Assistive Device None PT-OP-J Posture/Palpation/Skin Start: 03/06/22 12:42 Freq: Status: Active Protocol: Document 03/06/22 13:50 LRN (Rec: 03/06/22 18:58 LRN [id number]) Posture Evaluation Position Standing Head/C-Spine Posture Forward Head L-Spine Posture Decreased Lordosis Hip Posture (L) Externally Rotated,(R) Externally Rotated Comments Posture Comments Decreased thoracic curvature, mild anterior tilt of pelvis. PT-OP-K Range of Motion Start: 03/06/22 12:42 Freq: Status: Active Protocol: Document 03/06/22 13:50 LRN (Rec: 03/06/22 18:58 LRN [id number]) Ankle and Foot Goniometric Range of Motion Ankle and Foot Right Active Testing Position Supine Dorsiflexion with Knee Extended 5 Inversion 5 Comments Ankle AROM is approximated. Left Active Testing Position Supine Dorsiflexion with Knee Extended 7 Inversion 7 Comments Ankle AROM is approximated. PT-OP-M Strength Start: 03/06/22 12:42 Freq: Status: Active Protocol: Document 03/06/22 13:50 LRN (Rec: 03/06/22 18:58 LRN [id number]) Trunk Strength Trunk Manual Muscle Testing Core Stabilization Pt had difficulty maintaining a stable core during hip MMT. Comments Generally 5/5 Hip Strength Hip Manual Muscle Testing Right Flexion (L2) 4 Good Extension (S1) 3 Fair Adduction 4- Good- External Rotation 5 Normal Internal Rotation 5 Normal Left Flexion (L2) 4+ Good+ Abduction 3 Fair Adduction 4- Good- External Rotation 3+ Fair+ Internal Rotation 5 Normal Knee Strength Knee Manual Muscle Testing Right Flexion (S2) 5 Normal Extension (L3) 5 Normal Left Flexion (S2) 5 Normal Extension (L3) 5 Normal Ankle/Foot Strength Ankle and Foot Manual Muscle Testing Right Dorsiflexion (L4) 4+ Good+ Inversion 5 Normal Eversion (S1) 5 Normal Comments Strength is normal within available limited range. Left Dorsiflexion (L4) 4+ Good+ Inversion 5 Normal Eversion (S1) 5 Normal Comments Strength is normal within available limited range. PT-OP-Q Treatments Start: 03/06/22 12:42 Freq: Status: Active Protocol: Document 05/16/22 11:21 LRN (Rec: 05/16/22 12:29 LRN [id number]) Therapeutic Exercises Supine Exercises SKTC stretch Supine Exercise Name SKTC Side bilateral Reps/Minutes 30 x2 Comments good form and stretch felt Fig 4 stretch Supine Exercise Name Frog position stretch Side bilateral Reps/Minutes 2' Hip Flexor stretch Supine Exercise Name Will stretch Side bilateral Reps/Minutes 60 each Comments Extra time to determine max trish stretch and position, cued opp KTC Sitting Exercises HS stretch Sitting Exercise Name hip hinge Side bilateral Reps/Minutes 30 x2 Comments good feedback stretch Hip ER stretch Sitting Exercise Name Hip ER stretchn f/b active stretch Side bilateral Reps/Minutes 1' hold, f/b 10x active hip ER Comments good upright posture and hip ER vs use of hands to ER stretch Piriformis stretch Sitting Exercise Name Piriformis stretch Side bilateral Reps/Minutes 1' each Comments good form and proper stretch Neuro Re-Education Treatment Balance Activities tandem balance Details Tandem stance Surface Firm Comments EO: 60 secs R foot behind, 18 secs L foot behind; arms crossed across at elbow height . Pt performed several times before positioning correctly. SLS Details SLS Surface Firm Comments SLS 5 secs Rgiht, 8 secs Left Self-Care/Home Management Treatment Education Caregiver Education With pt in room, spoke to pt and Radha regarding POC for therapy after discussion of expectations since MD visit and MRI results. Other Education Discussed outcome of pt MRI report and discussed ex HEP and how to keep muscle tone. DIscussed goals of ex for pt and pt wants to bulk muscle. Discussed different type of strengthening, endurance vs strength. 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 PT-OP-T Assessment and Plan Start: 03/06/22 12:42 Freq: Status: Active Protocol: Document 05/16/22 11:21 LRN (Rec: 05/16/22 12:29 LRN [id number]) Physical Therapy Assessment Goals Four Impairment Decreased balance placing pt at risk of falling Impairment Dizziness Questionnaire is 26 (20-39% impaired, score 20-39) JOY balance is 45 (1-19% impaired, 45-55) SLS is 7 secs R, 6 secs L. Tandem stance is: R foot behind 28 secs, L foot behind 4 secs. Short Term Goal (STG) Pt will demonstrate improved SLS or tandem stance to improve balance and pt risk of falling. 04/10/22: Progressing:LLE 28s, RLE 32s 04/14/22: balance not as good today up to 6sec eachLE today. (04/22/22: SLS: 6 secs R, 11 sec L; Tandem stance: 60 secs leodan with arms across) STG Duration 04/22/22 (04/22/22: MET GOAL except for SLS on RLE was less) Lead Sales Consultant Goal (LTG) Improve balance per JOY score to no less than 50. (04/22/22: JOY score is 49) LTG Duration 06/04/22 (04/22/22: Progressing) Three Impairment Decreased endurance Impairment Pt [place] without having to stop at least once due to pain in the hips and lower leg/ feet. (04/22/22: Couple times able to walk home without stopping, but yesterday needed to stop twice). [facility] Goal (LTG) Improve pt endurance with pt able to walk [place] to [place] without having to stop due to limiting pain in the hips, lower legs or feet. 04/07/22: states no change in needs stand stop stand 1 min about every minute for recovery after PT appt last. 04/14/22: pt states walking [place] [employer] is ok decline but upgrade off gets his ankles burning quickly, worked in the yard over the weekend and has some inclines, slow moving up hill. (04/22/22: Pt able to walk from [place] to [place] x2 without having to stop) LTG Duration 06/04/22 (05/16/22: Pt achieved 2 days, but now feels inappropriate) Two Impairment Decreased functional mobility Impairment Pt has difficulty kneeling and getting back up at latter day. ABC scale is 75 (20<20% impaired, 61-80) Short Term Goal (STG) Improve LE mobility with pt able to kneel and stand at latter day with greater ease and improved posture. 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 04/14/22: progressing has been singing in choir so not enough room to kneel so hasn't tried . STG Duration 04/22/22 (05/16/22: Determined not needed) Lead Sales Consultant Goal (LTG) Pt will improve function per ABC score of 81 or greater (1< 20% impaired). (04/22/22: ABC Score - 91.25, 1<20% impaired) LTG Duration 06/04/22 (04/22/22: MET GOAL) One Impairment Lacks appropriate self care HEP Short Term Goal (STG) Pt will be independent with a HEP of strengthening and endurance exercise. STG Duration 03/19/22 [facility] Goal (LTG) Pt will be independent with a HEP of balance and LE mobility ex's. (03/10/22: HEP: Standing Gastroc/Soleus & supine Ilipsoas stretch) (03/13/22: HEP: Hip stretches of ER-fig4 & leodan BKFO/IR- piriformis/Hip AD, I/S for R TFL stretch, SKTC stretch).. 03/30/22: reviewed stretching, HEP with good form, added band walk for core/ hip abd, functional strengthening/ balance. 04/10/22: added 3 way ankle on L , SLS and reviewed is doing STS at home without UE support . 04/14/22: added resisted shld ext, corner balance: SLS, tandem for self application progressing at home. LTG Duration 04/22/22 (04/14/22: Progressing) Assessment Summary Assessment Concluded after discussion with pt and spouse that goals initially set are no longer considered realistic. Decided within next 2-[address] pt on independent home program and DC. Spouse no longer feels TM assessment is necessary; therefore will remove from POC. Pt agreeable to work more on endurance strengthening vs strength training at home after discussion. Today, pt SLS (5 R; 8 L) & Tandem stance times (L behind 18 R behind 60) were worse (SLS: 6R, 11L; Tandem: L & R behind was 60+ secs), except R foot behind in tandem was same (60+ secs). Pt is doing ankle ex's as part of HEP. Pt had good knowledge of hip stretches using handouts, per review. Physical Therapy Plan Frequency and Duration Frequency of Treatment 2x/Week Plan of Care Start Date 04/22/22 Plan of Care End Date 07/01/22 Next Visit Focus/Plan Next Note Type Treatment Note Next Visit Plan Continue per POC: Focus on setting pt up on home program of LE stretches, endurance and Balance ex's, then DC to HEP. Next: Review use of his home ex equipment for appropriateness. Add HEP: Toe ext PROM & knee flex stretch (to make kneeling easier). Assess sensation in feet and palpate for areas of burning pain with gait HEP of endurance ex using pt's weights at home, and discuss walking program. HEP of Balance training ( Corner: SLS, Tandem, etc).
--- NOTE | 2022-06-02 14:30 | PT.OTN ---
Current Diagnoses Other abnormalities of gait and mobility (06/02/22) Weakness (06/02/22) Physical Therapy Treatment Note PT-OP-A Visit Information Start: 03/06/22 12:42 Freq: Status: Active Protocol: Document 06/02/22 13:40 NBM (Rec: 06/02/22 14:32 NBM [id number]) Out-Patient Physical Therapy Visit Information Visit Information Visit Type Treatment Note Visit Note 12/12 after PN Visit Start Time 13:47 Visit Stop Time 14:25 Total Visit Minutes 38 Visit Number 12 Number of [facility] Visits 1 Precautions Precautions Pt reports: Completed radiation treatment to prostate on 01/07/22, Blackouts over several years with last one 1.5 yrs ago, mini-stroke, L fx'd hip 2 yrs ago, 8 stents : 3 in neck and 5 in heart ( descending aorta) 4 yrs ago. 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 Intake form: Arterial disease , controlled HBP, arthritis, neuropathy of feet and hands, PT-OP-B Current Condition Start: 03/06/22 12:42 Freq: Status: Active Protocol: Document 03/06/22 13:50 LRN (Rec: 03/06/22 18:58 LRN [id number]) Current Condition History of Current Condition Onset Date 01/07/22 Current Complaints Weakness of legs from radiation treatments & Lupron injections History of Current Condition [place] and [place] only go 1 block the ankles and hips start to burn and must stop to wait. Pt spouse (Radha) who is a PT thinks it may be from arteries . Has done [facility] 3 yrs ago without pain in the legs with exercise. Since receiving Lupron injections ( to reduce testosterone) and radiation treatments he has had weakness in his legs and fatigue. Developmental History Developmental History Completed radiation treatment to prostate on 01/07/22. 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 Treatment Goals Patient/Caregiver Goals Pt goal is to measure strength and build it up again. Prior Functional Status Baseline Function- ADL's Independent Baseline Function- Mobility Independent Baseline Function- Gait Walked home with hips/ankles heating up and 3-4 stops/3 bks to walk home Current Functional Impairments (Reported) Functional Limitations- ADL's Weakness in ability to get medicine or pepsi bottle caps off. Able to do yardwork only 10-15 ' due to fatigue. Transfers sit<>stand causes heavy breathing sometimes. Neuropathy and electric shocks happens randomly mostly in the evening, several times a week. Functional Limitations- Mobility/Gait L>R Hips/ankles burn walking home with hips/ankles heating up and 1-2 stops/3 bks to walk home. 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 PT-OP-C Subjective Start: 03/06/22 12:42 Freq: Status: Active Protocol: Document 06/02/22 13:40 NBM (Rec: 06/02/22 14:32 NBM [id number]) OP-PT Subjective Patient Comments Patient Comments Pt has a rowing machine and weight machine, therabands. L hip, ankles and calf get burning pain with walking, especially with walking uphill PT-OP-D Balance Start: 03/06/22 12:42 Freq: Status: Active Protocol: Document 04/22/22 09:11 LRN (Rec: 04/22/22 09:56 LRN [id number]) Balance Tests Joy Balance Test Ojy Balance Test Score 49 Joy Impairment Rating 1 to 19% Impaired (Score 45-55 ) Functional Reach Functional Reach Test 15 Functional Reach Impairment Rating 0% Impaired (Score 10) Single Limb Standing Single Limb- Right 6 Single Limb- Left 11 Tandem Tandem Standing R foot behind 60+ secs, L foot behind is 60+ secs Other Other Balance Tests Performed Arms crossesd across lower chest Joy Balance Assessment Evaluation Sitting to Standing Ability Independent w/out Hands Unsupported Stance Safely- 2 minutes Sitting Unsupported, Feet on Floor Safely- 2 minutes Standing to Sitting Ability Safely, Minimal Hand Use Transfer Ability Safely, Minimal Hand Use Unsupported Stance- Eyes Closed Safely, 10 seconds Unsupported Stance- Eyes Open Independent, 1 minute Reaching Forward Standing Confidently, 10 inches Pick- Up Object From Floor Independent/Safe Look Behind Shoulder - Standing Turns Sideways Only Turning 360 Degrees Turns , < 4 secs Unsupported Stance, Alternating Feet on (I)- 8 Steps in 20 secs Stair Unsupported Tandem Stance Assist to Step-15 seconds Unilateral Leg Stance Lifts Leg/Holds 5-10 secs Total Score Joy Total Score (out of 56 points) 49 Joy Impairment Rating 1 to 19% Impaired (Score 45-55 ) PT-OP-E Functional Tests Start: 03/06/22 12:42 Freq: Status: Active Protocol: Document 03/17/22 13:47 LRN (Rec: 03/17/22 17:14 LRN [id number]) Functional Tests Dynamic Gait Index (DGI) Score 23 DGI Impairment Rating 1 to <20% Impaired (Score 20- 23) PT-OP-G Mobility & Gait Start: 03/06/22 12:42 Freq: Status: Active Protocol: Document 03/06/22 13:50 LRN (Rec: 03/06/22 18:58 LRN [id number]) OP Gait Assessment Gait Gait Assistance Required: Independent Assistive Devices Assistive Device None PT-OP-J Posture/Palpation/Skin Start: 03/06/22 12:42 Freq: Status: Active Protocol: Document 03/06/22 13:50 LRN (Rec: 03/06/22 18:58 LRN [id number]) Posture Evaluation Position Standing Head/C-Spine Posture Forward Head L-Spine Posture Decreased Lordosis Hip Posture (L) Externally Rotated,(R) Externally Rotated Comments Posture Comments Decreased thoracic curvature, mild anterior tilt of pelvis. PT-OP-K Range of Motion Start: 03/06/22 12:42 Freq: Status: Active Protocol: Document 03/06/22 13:50 LRN (Rec: 03/06/22 18:58 LRN [id number]) Ankle and Foot Goniometric Range of Motion Ankle and Foot Right Active Testing Position Supine Dorsiflexion with Knee Extended 5 Inversion 5 Comments Ankle AROM is approximated. Left Active Testing Position Supine Dorsiflexion with Knee Extended 7 Inversion 7 Comments Ankle AROM is approximated. PT-OP-M Strength Start: 03/06/22 12:42 Freq: Status: Active Protocol: Document 03/06/22 13:50 LRN (Rec: 03/06/22 18:58 LRN [id number]) Trunk Strength Trunk Manual Muscle Testing Core Stabilization Pt had difficulty maintaining a stable core during hip MMT. Comments Generally 5/5 Hip Strength Hip Manual Muscle Testing Right Flexion (L2) 4 Good Extension (S1) 3 Fair Adduction 4- Good- External Rotation 5 Normal Internal Rotation 5 Normal Left Flexion (L2) 4+ Good+ Abduction 3 Fair Adduction 4- Good- External Rotation 3+ Fair+ Internal Rotation 5 Normal Knee Strength Knee Manual Muscle Testing Right Flexion (S2) 5 Normal Extension (L3) 5 Normal Left Flexion (S2) 5 Normal Extension (L3) 5 Normal Ankle/Foot Strength Ankle and Foot Manual Muscle Testing Right Dorsiflexion (L4) 4+ Good+ Inversion 5 Normal Eversion (S1) 5 Normal Comments Strength is normal within available limited range. Left Dorsiflexion (L4) 4+ Good+ Inversion 5 Normal Eversion (S1) 5 Normal Comments Strength is normal within available limited range. PT-OP-Q Treatments Start: 03/06/22 12:42 Freq: Status: Active Protocol: Document 06/02/22 13:40 NB (Rec: 06/06/22 03:50 NBM [id number]) Therapeutic Exercises Supine Exercises IT band stretch Supine Exercise Name added to HEP Side bilateral Equipment Used w/ strap Reps/Minutes x60 ea HS stretch Supine Exercise Name added to HEP Side bilateral Equipment Used w/strap Reps/Minutes x60 ea Heel slides Supine Exercise Name added to HEP Side bilateral Reps/Minutes x10 ea Pirifromis stretch Supine Exercise Name HEP reviewed Side bilateral Equipment Used foot over opp knee and that knee held toward opp chest Reps/Minutes 30 x2 Comments good stretch Fig 4 stretch Supine Exercise Name Frog position stretch - HEP reviewed Side bilateral Reps/Minutes 1' Sidelying Exercises Open book stretch Sidelying Exercise Name added to HEP Side bilateral Reps/Minutes 5 x 3 breaths ea Comments low back pain improved w/ cue for TrA activation Manual Therapy Treatment Other Other Manual Treatments PROM to Hallux at MTP w/ flexion contract/relax 3x10SH Self-Care/Home Management Treatment Education Patient Education Home Exercise Program,Posture, Safety Caregiver Education Added to HEP: heel slides, HS and IT band stretch w/ strap, open book stretch. Discussed foot checks due to neuropathy bilaterally. Explained core anatomy and how to engage TrA to protect low back. PT-OP-T Assessment and Plan Start: 03/06/22 12:42 Freq: Status: Active Protocol: Document 06/02/22 13:40 [facility] (Rec: 06/02/22 14:32 [facility] [id number]) Physical Therapy Assessment Impairments Impairments Activity Tolerance,Balance, Functional Activities, Functional Mobility,Pain, Posture,ROM,Sensation,Soft Tissue Mobility,Strength Goals Four Impairment Decreased balance placing pt at risk of falling Impairment Dizziness Questionnaire is 26 (20-39% impaired, score 20-39) JOY balance is 45 (1-19% impaired, 45-55) SLS is 7 secs R, 6 secs L. Tandem stance is: R foot behind 28 secs, L foot behind 4 secs. Short Term Goal (STG) Pt will demonstrate improved SLS or tandem stance to improve balance and pt risk of falling. 04/10/22: Progressing:LLE 28s, RLE 32s 04/14/22: balance not as good today up to 6sec eachLE today. (04/22/22: SLS: 6 secs R, 11 sec L; Tandem stance: 60 secs leodan with arms across) STG Duration 04/22/22 (04/22/22: MET GOAL except for SLS on RLE was less) Usp Goal (LTG) Improve balance per JOY score to no less than 50. (04/22/22: JOY score is 49) LTG Duration 06/04/22 (04/22/22: Progressing) Three Impairment Decreased endurance Impairment [place] having to stop at least once due to pain in the hips and lower leg/ feet. (04/22/22: Couple times able to walk home without stopping, but yesterday needed to stop twice). Usp Goal (LTG) Improve pt endurance with pt able [place] without having to stop due to limiting pain in the hips, lower legs or feet. 04/07/22: states no change in needs stand stop stand 1 min about every minute for recovery after PT appt last. 04/14/22: pt [place] decline but upgrade off gets his ankles burning quickly, worked in the yard over the weekend and has some inclines, slow moving up hill. (04/22/22: Pt able [place] walk from [place] to [place] x2 without having to stop) LTG Duration 06/04/22 (05/16/22: Pt achieved 2 days, but now feels inappropriate) Two Impairment Decreased functional mobility Impairment Pt has difficulty kneeling and getting back up at [employer]. ABC scale is 75 (20<20% impaired, 61-80) Short Term Goal (STG) Improve LE mobility with pt able to kneel and stand at [employer] with greater ease and improved posture. 03/20/22: He is able to complete stand>1/2 kneel> tall kneel, maintain tall kneel but notices puts more WB on LLE due to RLE weakness, stronger and less UE support if LLE front to support castings drafter 1/2 kneel. 04/14/22: progressing has been singing in choir so not enough room to kneel so hasn't tried . STG Duration 04/22/22 (05/16/22: Determined not needed) Usp Goal (LTG) Pt will improve function per ABC score of 81 or greater (1< 20% impaired). (04/22/22: ABC Score - 91.25, 1<20% impaired) LTG Duration 06/04/22 (04/22/22: MET GOAL) One Impairment Lacks appropriate self care HEP Short Term Goal (STG) Pt will be independent with a HEP of strengthening and endurance exercise. STG Duration 03/19/22 Special Warfare Operator Goal (LTG) Pt will be independent with a HEP of balance and LE mobility ex's. (03/10/22: HEP: Standing Gastroc/Soleus & supine Ilipsoas stretch) (03/13/22: HEP: Hip stretches of ER-fig4 & leodan BKFO/IR- piriformis/Hip AD, I/S for R TFL stretch, SKTC stretch).. 03/30/22: reviewed stretching, HEP with good form, added band walk for core/ hip abd, functional strengthening/ balance. 04/10/22: added 3 way ankle on L , SLS and reviewed is doing STS at home without UE support . 04/14/22: added resisted shld ext, corner balance: SLS, tandem for self application progressing at home. LTG Duration 04/22/22 (04/14/22: Progressing) Assessment Summary Assessment Pt has little to no feeling under feet - discussed regular foot checks and foot care. Pt 's PROM of hallux improved bilaterally after flexion contract/relax technique. Pt's report of low back pain w/ open book stretch improves w/ cueing for Transverse abdominus activation. Pt demonstrates LE tightness and LE stretching exercises are added to HEP: heel slides, HS and IT band stretches w/ strap , and open book stretch - HO given. Physical Therapy Plan Frequency and Duration Frequency of Treatment 2x/Week Plan of Care Start Date 04/22/22 Plan of Care End Date 07/01/22 Therapeutic Interventions Therapeutic Interventions Aquatic Therapy,Balance Training,Gait Training,Home Exercise Program,Joint Mobilizations,Manual Therapy, Neuromuscular Re-education, Patient/Caregiver Education, Self-Care/Home Management,Soft Tissue Mobilization, Therapeutic Activities, Therapeutic Exercises Modalities Cold Pack/Ice Massage,Hot Packs Next Visit Focus/Plan Next Note Type Treatment Note Next Visit Plan Bridge, SLR, marching, figure 4 seated, Add to HEP: STS, Balance, walking program ( distance then add 10 ft at a time), Toe ext PROM & knee flex stretch (to make kneeling easier) Continue per POC: Focus on setting pt up on home program of LE stretches, endurance and Balance ex's, then DC to HEP. Next: Review use of his home ex equipment for appropriateness. Add HEP: ). Assess sensation in feet and palpate for areas of burning pain with gait HEP of endurance ex using pt's weights at home, and discuss walking program. HEP of Balance training ( Corner: SLS, Tandem, etc).
--- NOTE | 2022-06-16 18:34 | PT.OTN ---
Current Diagnoses Other abnormalities of gait and mobility (06/16/22) Weakness (06/16/22) Physical Therapy Treatment Note PT-OP-A Visit Information Start: 03/06/22 12:42 Freq: Status: Active Protocol: Document 06/16/22 09:55 LRN (Rec: 06/16/22 10:35 LRN [id number]) Out-Patient Physical Therapy Visit Information Visit Information Visit Type Treatment Note Visit Note 01/09 after PN Visit Start Time 09:56 Visit Stop Time 10:36 Total Visit Minutes 40 Visit Number 13 Evaluation Information Evaluation Date 03/06/22 Precautions Precautions Pt reports: Completed radiation treatment to prostate on 01/07/22, Blackouts over several years with last one 1.5 yrs ago, mini-stroke, L fx'd hip 2 yrs ago, 8 stents : 3 in neck and 5 in heart ( descending aorta) 4 yrs ago. 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 Intake form: Arterial disease , controlled HBP, arthritis, neuropathy of feet and hands, PT-OP-B Current Condition Start: 03/06/22 12:42 Freq: Status: Active Protocol: Document 03/06/22 13:50 LRN (Rec: 03/06/22 18:58 LRN [id number]) Current Condition History of Current Condition Onset Date 01/07/22 Current Complaints Weakness of legs from radiation treatments & Lupron injections History of Current Condition Walks 3 blocks to [place] and can only go 1 block the ankles and hips start to burn and must stop to wait. Pt spouse (Radha) who is a PT thinks it may be from arteries . Has done [facility] rehab 3 yrs ago without pain in the legs with exercise. Since receiving Lupron injections ( to reduce testosterone) and radiation treatments he has had weakness in his legs and fatigue. Developmental History Developmental History Completed radiation treatment to prostate on 01/07/22. 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 Treatment Goals Patient/Caregiver Goals Pt goal is to measure strength and build it up again. Prior Functional Status Baseline Function- ADL's Independent Baseline Function- Mobility Independent Baseline Function- Gait Walked home with hips/ankles heating up and 3-4 stops/3 bks to walk home Current Functional Impairments (Reported) Functional Limitations- ADL's Weakness in ability to get medicine or pepsi bottle caps off. Able to do yardwork only 10-15 ' due to fatigue. Transfers sit<>stand causes heavy breathing sometimes. Neuropathy and electric shocks happens randomly mostly in the evening, several times a week. Functional Limitations- Mobility/Gait L>R Hips/ankles burn walking home with hips/ankles heating up and 1-2 stops/3 bks to walk home. 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 PT-OP-C Subjective Start: 03/06/22 12:42 Freq: Status: Active Protocol: Document 06/16/22 09:55 LRN (Rec: 06/16/22 10:35 LRN [id number]) OP-PT Subjective Patient Comments Patient Comments States he pulled a ms in his R low back 2 wks ago lifting something, and it is not getting better. Has not been able to walk for ex, but rode a bike last week, and it didn' t make it worse in the back. PT-OP-D Balance Start: 03/06/22 12:42 Freq: Status: Active Protocol: Document 04/22/22 09:11 LRN (Rec: 04/22/22 09:56 LRN [id number]) Balance Tests Joy Balance Test Joy Balance Test Score 49 Joy Impairment Rating 1 to 19% Impaired (Score 45-55 ) Functional Reach Functional Reach Test 15 Functional Reach Impairment Rating 0% Impaired (Score 10) Single Limb Standing Single Limb- Right 6 Single Limb- Left 11 Tandem Tandem Standing R foot behind 60+ secs, L foot behind is 60+ secs Other Other Balance Tests Performed Arms crossesd across lower chest Joy Balance Assessment Evaluation Sitting to Standing Ability Independent w/out Hands Unsupported Stance Safely- 2 minutes Sitting Unsupported, Feet on Floor Safely- 2 minutes Standing to Sitting Ability Safely, Minimal Hand Use Transfer Ability Safely, Minimal Hand Use Unsupported Stance- Eyes Closed Safely, 10 seconds Unsupported Stance- Eyes Open Independent, 1 minute Reaching Forward Standing Confidently, 10 inches Pick- Up Object From Floor Independent/Safe Look Behind Shoulder - Standing Turns Sideways Only Turning 360 Degrees Turns , < 4 secs Unsupported Stance, Alternating Feet on (I)- 8 Steps in 20 secs Stair Unsupported Tandem Stance Assist to Step-15 seconds Unilateral Leg Stance Lifts Leg/Holds 5-10 secs Total Score Joy Total Score (out of 56 points) 49 Joy Impairment Rating 1 to 19% Impaired (Score 45-55 ) PT-OP-E Functional Tests Start: 03/06/22 12:42 Freq: Status: Active Protocol: Document 03/17/22 13:47 LRN (Rec: 03/17/22 17:14 LRN [id number]) Functional Tests Dynamic Gait Index (DGI) Score 23 DGI Impairment Rating 1 to <20% Impaired (Score 20- 23) PT-OP-G Mobility & Gait Start: 03/06/22 12:42 Freq: Status: Active Protocol: Document 03/06/22 13:50 LRN (Rec: 03/06/22 18:58 LRN [id number]) OP Gait Assessment Gait Gait Assistance Required: Independent Assistive Devices Assistive Device None PT-OP-J Posture/Palpation/Skin Start: 03/06/22 12:42 Freq: Status: Active Protocol: Document 03/06/22 13:50 LRN (Rec: 03/06/22 18:58 LRN [id number]) Posture Evaluation Position Standing Head/C-Spine Posture Forward Head L-Spine Posture Decreased Lordosis Hip Posture (L) Externally Rotated,(R) Externally Rotated Comments Posture Comments Decreased thoracic curvature, mild anterior tilt of pelvis. PT-OP-K Range of Motion Start: 03/06/22 12:42 Freq: Status: Active Protocol: Document 03/06/22 13:50 LRN (Rec: 03/06/22 18:58 LRN [id number]) Ankle and Foot Goniometric Range of Motion Ankle and Foot Right Active Testing Position Supine Dorsiflexion with Knee Extended 5 Inversion 5 Comments Ankle AROM is approximated. Left Active Testing Position Supine Dorsiflexion with Knee Extended 7 Inversion 7 Comments Ankle AROM is approximated. PT-OP-M Strength Start: 03/06/22 12:42 Freq: Status: Active Protocol: Document 03/06/22 13:50 LRN (Rec: 03/06/22 18:58 LRN [id number]) Trunk Strength Trunk Manual Muscle Testing Core Stabilization Pt had difficulty maintaining a stable core during hip MMT. Comments Generally 5/5 Hip Strength Hip Manual Muscle Testing Right Flexion (L2) 4 Good Extension (S1) 3 Fair Adduction 4- Good- External Rotation 5 Normal Internal Rotation 5 Normal Left Flexion (L2) 4+ Good+ Abduction 3 Fair Adduction 4- Good- External Rotation 3+ Fair+ Internal Rotation 5 Normal Knee Strength Knee Manual Muscle Testing Right Flexion (S2) 5 Normal Extension (L3) 5 Normal Left Flexion (S2) 5 Normal Extension (L3) 5 Normal Ankle/Foot Strength Ankle and Foot Manual Muscle Testing Right Dorsiflexion (L4) 4+ Good+ Inversion 5 Normal Eversion (S1) 5 Normal Comments Strength is normal within available limited range. Left Dorsiflexion (L4) 4+ Good+ Inversion 5 Normal Eversion (S1) 5 Normal Comments Strength is normal within available limited range. PT-OP-Q Treatments Start: 03/06/22 12:42 Freq: Status: Active Protocol: Document 06/16/22 09:55 LRN (Rec: 06/16/22 10:35 LRN [id number]) Therapeutic Exercises Supine Exercises Bridge Supine Exercise Name Bridging Reps/Minutes 30x Pirifromis stretch Supine Exercise Name Piriformis stetch - Fig 4 (HEP ) Side bilateral Equipment Used foot over opp knee and that knee held toward opp chest Reps/Minutes 60 x1 Comments Extra time to teach pt not to stretch into pain. Prone Exercises EDGARDO Prone Exercise Name Prone on Elbows Reps/Minutes 5x 2, 10x 1 Comments 13' Sitting Exercises Big Toes Ext stretch Sitting Exercise Name Big toe ext stretch f/b 10 active ext Side bilateral Reps/Minutes 3' HS stretch Sitting Exercise Name Hamstring/Hip AD stretch Side bilateral Reps/Minutes 60 x 1 each Comments Pt slow to transition; therefore extra time for pt to mobilize Hip ER stretch Sitting Exercise Name Hip ER stretch f/b active stretch Side bilateral Reps/Minutes 1' hold, f/b 10x active hip ER Comments good upright posture and hip ER vs use of hands to ER stretch Manual Therapy Treatment Joint Mobilizations L3 Joint PA & correcting a L rotation Body Position Prone Reps/Duration 13' Comments MFR Neuro Re-Education Treatment Balance Activities Foam standing Details Blue foam: standing, turning to look behind, reaching, EO/ EC Surface Blue Foam Reps/Duration 8' Comments No LOB, good ankle stratedgy for balancing. SLS Details SLS Surface Firm PT-OP-T Assessment and Plan Start: 03/06/22 12:42 Freq: Status: Active Protocol: Document 06/16/22 09:55 LRN (Rec: 06/16/22 10:35 LRN [id number]) Physical Therapy Assessment Goals Four Impairment Decreased balance placing pt at risk of falling Impairment Dizziness Questionnaire is 26 (20-39% impaired, score 20-39) JOY balance is 45 (1-19% impaired, 45-55) SLS is 7 secs R, 6 secs L. Tandem stance is: R foot behind 28 secs, L foot behind 4 secs. Short Term Goal (STG) Pt will demonstrate improved SLS or tandem stance to improve balance and pt risk of falling. 04/10/22: Progressing:LLE 28s, RLE 32s 04/14/22: balance not as good today up to 6sec eachLE today. (04/22/22: SLS: 6 secs R, 11 sec L; Tandem stance: 60 secs leodan with arms across) STG Duration 04/22/22 (04/22/22: MET GOAL except for SLS on RLE was less) Long-Term Goal (LTG) Improve balance per JOY score to no less than 50. (04/22/22: JOY score is 49) LTG Duration 06/04/22 (04/22/22: Progressing) Three Impairment Decreased endurance Impairment [place] having to stop at least once due to pain in the hips and lower leg/ feet. (04/22/22: Couple times able to walk home without stopping, but yesterday needed to stop twice). Long-Term Goal (LTG) Improve pt endurance with pt able [place] without having to stop due to limiting pain in the hips, lower legs or feet. 04/07/22: states no change in needs stand stop stand 1 min about every minute for recovery after PT appt last. 04/14/22: pt [place] decline but upgrade off gets his ankles burning quickly, worked in the yard over the weekend and has some inclines, slow moving up hill. (04/22/22: Pt able [place] walk from [place] to [place] x2 without having to stop) LTG Duration 06/04/22 (05/16/22: Pt achieved 2 days, but now feels inappropriate) Two Impairment Decreased functional mobility Impairment Pt has difficulty kneeling and getting back up at [employer]. ABC scale is 75 (20<20% impaired, 61-80) Short Term Goal (STG) Improve LE mobility with pt able to kneel and stand at [employer] with greater ease and improved posture. 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 04/14/22: progressing has been singing in choir so not enough room to kneel so hasn't tried . STG Duration 04/22/22 (05/16/22: Determined not needed) Long-Term Goal (LTG) Pt will improve function per ABC score of 81 or greater (1< 20% impaired). (04/22/22: ABC Score - 91.25, 1<20% impaired) LTG Duration 06/04/22 (04/22/22: MET GOAL) One Impairment Lacks appropriate self care HEP Short Term Goal (STG) Pt will be independent with a HEP of strengthening and endurance exercise. 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 (03/10/22: HEP: Standing Gastroc/Soleus & supine Ilipsoas stretch) (03/13/22: HEP: Hip stretches of ER-fig4 & leodan BKFO/IR- piriformis/Hip AD, I/S for R TFL stretch, SKTC stretch).. 03/30/22: reviewed stretching, HEP with good form, added band walk for core/ hip abd, functional strengthening/ balance. 04/10/22: added 3 way ankle on L , SLS and reviewed is doing STS at home without UE support . 04/14/22: added resisted shld ext, corner balance: SLS, tandem for self application progressing at home. LTG Duration 04/22/22 (04/14/22: Progressing) Assessment Summary Assessment L3 v. body appears anteriorly shifted on L2 and rotated left ; corrected with manual therapy. Pt had pain in back only with seated hamstring/hip AD stretch. Good tolerance with balance activities without LBP. Pt had pain in ankles with SLS. Pain in LB when not keeping arch in LB. Physical Therapy Plan Frequency and Duration Frequency of Treatment 2x/Week Plan of Care Start Date 04/22/22 Plan of Care End Date 07/01/22 Next Visit Focus/Plan Next Note Type Treatment Note Next Visit Plan Try SLR, marching. Add to HEP: Sit<>Stand, Balance, walking program (distance then add 10 ft at a time), & Toe ext PROM & knee flex stretch (to make kneeling easier) Continue per POC: Focus on setting pt up on home program of LE stretches, endurance and Balance ex's, then DC to HEP. Next: Review use of his home ex equipment for appropriateness. Add HEP: ). Assess sensation in feet and palpate for areas of burning pain with gait HEP of endurance ex using pt's weights at home, and discuss walking program. HEP of Balance training ( Corner: SLS, Tandem, etc).
--- NOTE | 2022-06-23 11:00 | PT.OTN ---
Current Diagnoses Other abnormalities of gait and mobility (06/23/22) Weakness (06/23/22) Physical Therapy Treatment Note PT-OP-A Visit Information Start: 03/06/22 12:42 Freq: Status: Active Protocol: Document 06/23/22 09:50 NBM (Rec: 06/23/22 10:36 NBM [id number]) Out-Patient Physical Therapy Visit Information Visit Information Visit Type Treatment Note Visit Note 02/09 after PN Visit Start Time 09:47 Visit Stop Time 10:32 Total Visit Minutes 45 Visit Number 14 Number of SUPPORT DBA Visits 1 PT-OP-B Current Condition Start: 03/06/22 12:42 Freq: Status: Active Protocol: Document 03/06/22 13:50 LRN (Rec: 03/06/22 18:58 LRN [id number]) Current Condition History of Current Condition Onset Date 01/07/22 Current Complaints Weakness of legs from radiation treatments & Lupron injections History of Current Condition Walks 3 blocks to [employer] [place] and can only go 1 block the ankles and hips start to burn and must stop to wait. Pt spouse (Radha) who is a PT thinks it may be from arteries . Has done [facility] rehab 3 yrs ago without pain in the legs with exercise. Since receiving Lupron injections ( to reduce testosterone) and radiation treatments he has had weakness in his legs and fatigue. Developmental History Developmental History Completed radiation treatment to prostate on 01/07/22. 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 Treatment Goals Patient/Caregiver Goals Pt goal is to measure strength and build it up again. Prior Functional Status Baseline Function- ADL's Independent Baseline Function- Mobility Independent Baseline Function- Gait Walked home with hips/ankles heating up and 3-4 stops/3 bks to walk home Current Functional Impairments (Reported) Functional Limitations- ADL's Weakness in ability to get medicine or pepsi bottle caps off. Able to do yardwork only 10-15 ' due to fatigue. Transfers sit<>stand causes heavy breathing sometimes. Neuropathy and electric shocks happens randomly mostly in the evening, several times a week. Functional Limitations- Mobility/Gait L>R Hips/ankles burn walking home with hips/ankles heating up and 1-2 stops/3 bks to walk home. 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 PT-OP-C Subjective Start: 03/06/22 12:42 Freq: Status: Active Protocol: Document 06/23/22 09:50 NBM (Rec: 06/23/22 10:36 NBM [id number]) OP-PT Subjective Patient Comments Patient Comments Pt feels fine today but his new normal is weak and tired, but he has neck stiffness by the end of the day. He rides his e-bike and has been doing his exercises. PT-OP-D Balance Start: 03/06/22 12:42 Freq: Status: Active Protocol: Document 04/22/22 09:11 LRN (Rec: 04/22/22 09:56 LRN [id number]) Balance Tests Joy Balance Test Joy Balance Test Score 49 Joy Impairment Rating 1 to 19% Impaired (Score 45-55 ) Functional Reach Functional Reach Test 15 Functional Reach Impairment Rating 0% Impaired (Score 10) Single Limb Standing Single Limb- Right 6 Single Limb- Left 11 Tandem Tandem Standing R foot behind 60+ secs, L foot behind is 60+ secs Other Other Balance Tests Performed Arms crossesd across lower chest Joy Balance Assessment Evaluation Sitting to Standing Ability Independent w/out Hands Unsupported Stance Safely- 2 minutes Sitting Unsupported, Feet on Floor Safely- 2 minutes Standing to Sitting Ability Safely, Minimal Hand Use Transfer Ability Safely, Minimal Hand Use Unsupported Stance- Eyes Closed Safely, 10 seconds Unsupported Stance- Eyes Open Independent, 1 minute Reaching Forward Standing Confidently, 10 inches Pick- Up Object From Floor Independent/Safe Look Behind Shoulder - Standing Turns Sideways Only Turning 360 Degrees Turns , < 4 secs Unsupported Stance, Alternating Feet on (I)- 8 Steps in 20 secs Stair Unsupported Tandem Stance Assist to Step-15 seconds Unilateral Leg Stance Lifts Leg/Holds 5-10 secs Total Score Joy Total Score (out of 56 points) 49 Joy Impairment Rating 1 to 19% Impaired (Score 45-55 ) PT-OP-E Functional Tests Start: 03/06/22 12:42 Freq: Status: Active Protocol: Document 03/17/22 13:47 LRN (Rec: 03/17/22 17:14 LRN [id number]) Functional Tests Dynamic Gait Index (DGI) Score 23 DGI Impairment Rating 1 to <20% Impaired (Score 20- 23) PT-OP-G Mobility & Gait Start: 03/06/22 12:42 Freq: Status: Active Protocol: Document 03/06/22 13:50 LRN (Rec: 03/06/22 18:58 LRN [id number]) OP Gait Assessment Gait Gait Assistance Required: Independent Assistive Devices Assistive Device None PT-OP-J Posture/Palpation/Skin Start: 03/06/22 12:42 Freq: Status: Active Protocol: Document 03/06/22 13:50 LRN (Rec: 03/06/22 18:58 LRN [id number]) Posture Evaluation Position Standing Head/C-Spine Posture Forward Head L-Spine Posture Decreased Lordosis Hip Posture (L) Externally Rotated,(R) Externally Rotated Comments Posture Comments Decreased thoracic curvature, mild anterior tilt of pelvis. PT-OP-K Range of Motion Start: 03/06/22 12:42 Freq: Status: Active Protocol: Document 03/06/22 13:50 LRN (Rec: 03/06/22 18:58 LRN [id number]) Ankle and Foot Goniometric Range of Motion Ankle and Foot Right Active Testing Position Supine Dorsiflexion with Knee Extended 5 Inversion 5 Comments Ankle AROM is approximated. Left Active Testing Position Supine Dorsiflexion with Knee Extended 7 Inversion 7 Comments Ankle AROM is approximated. PT-OP-M Strength Start: 03/06/22 12:42 Freq: Status: Active Protocol: Document 03/06/22 13:50 LRN (Rec: 03/06/22 18:58 LRN [id number]) Trunk Strength Trunk Manual Muscle Testing Core Stabilization Pt had difficulty maintaining a stable core during hip MMT. Comments Generally 5/5 Hip Strength Hip Manual Muscle Testing Right Flexion (L2) 4 Good Extension (S1) 3 Fair Adduction 4- Good- External Rotation 5 Normal Internal Rotation 5 Normal Left Flexion (L2) 4+ Good+ Abduction 3 Fair Adduction 4- Good- External Rotation 3+ Fair+ Internal Rotation 5 Normal Knee Strength Knee Manual Muscle Testing Right Flexion (S2) 5 Normal Extension (L3) 5 Normal Left Flexion (S2) 5 Normal Extension (L3) 5 Normal Ankle/Foot Strength Ankle and Foot Manual Muscle Testing Right Dorsiflexion (L4) 4+ Good+ Inversion 5 Normal Eversion (S1) 5 Normal Comments Strength is normal within available limited range. Left Dorsiflexion (L4) 4+ Good+ Inversion 5 Normal Eversion (S1) 5 Normal Comments Strength is normal within available limited range. PT-OP-Q Treatments Start: 03/06/22 12:42 Freq: Status: Active Protocol: Document 06/23/22 09:50 NBM (Rec: 06/23/22 10:36 [facility] [id number]) Therapeutic Exercises Sitting Exercises Sit to stand Sitting Exercise Name Sit > Standing hold, w/ and w/ o Tb - added to HEP Resistance Lvl 2 Tb Reps/Minutes x 5 ea Comments cues for toes fwd, controlled descent, no UE Manual Therapy Treatment Soft Tissue Mobilization cervical Body Location UT, cervical paraspinals Mobilization Type Rolling,Sustained Pressure, Trigger Point Release Intensity/Depth Moderate Body Position Sitting Comments L>R cervical paraspinals, R>L UT, good feedback response Neuro Re-Education Treatment Balance Activities Standing EO/EC Details Standing EO/EC feet together/ feet apart - added to HEP Equipment corner balance w/ chair in front tandem balance Details Tandem stance, Stride stance - added to HEP Surface Firm SLS Details SLS - added to HEP Surface Firm Equipment corner balance w/ chair in front Self-Care/Home Management Treatment Education Patient Education Home Exercise Program,Posture, Safety Caregiver Education Added to HEP: Sit to Stand, Corner balance w/ chair ( Romberg, Tanderm, Stride, Single leg stance), Walking program - HO given. Discussed walking program can be for time or distance - ex. pt can find max distance then add 10ft more goal and progress accordingly. PT-OP-T Assessment and Plan Start: 03/06/22 12:42 Freq: Status: Active Protocol: Document 06/23/22 09:50 NBM (Rec: 06/23/22 10:36 [facility] [id number]) Physical Therapy Assessment Goals Four Impairment Decreased balance placing pt at risk of falling Impairment Dizziness Questionnaire is 26 (20-39% impaired, score 20-39) JOY balance is 45 (1-19% impaired, 45-55) SLS is 7 secs R, 6 secs L. Tandem stance is: R foot behind 28 secs, L foot behind 4 secs. Short Term Goal (STG) Pt will demonstrate improved SLS or tandem stance to improve balance and pt risk of falling. 04/10/22: Progressing:LLE 28s, RLE 32s 04/14/22: balance not as good today up to 6sec eachLE today. (04/22/22: SLS: 6 secs R, 11 sec L; Tandem stance: 60 secs leodan with arms across) 06/23/22: SLS: 11 R, 10 S L STG Duration 04/22/22 (04/22/22: MET GOAL except for SLS on RLE was less) Jail Goal (LTG) Improve balance per JOY score to no less than 50. (04/22/22: JOY score is 49) LTG Duration 06/04/22 (04/22/22: Progressing) Three Impairment Decreased endurance Impairment [place] to stop at least once due to pain in the hips and lower leg/ feet. (04/22/22: Couple times able to walk home without stopping, but yesterday needed to stop twice). 06[place]23/22: [place] to stop on the way home. His legs are always tired when he gets home. Jail Goal (LTG) Improve pt endurance with pt able [place] without having to stop due to limiting pain in the hips, lower legs or feet. 04/07/22: states no change in needs stand stop stand 1 min about every minute for recovery after PT appt last. 04/14/22: pt states [place] is [place] decline but upgrade off gets his ankles burning quickly, worked in the yard over the weekend and has some inclines, slow moving up hill. (04/22/22: Pt able to walk from [place] to home x2 without having to stop) LTG Duration 06/04/22 (05/16/22: Pt achieved 2 days, but now feels inappropriate) Two Impairment Decreased functional mobility Impairment Pt has difficulty kneeling and getting back up at voodoo. ABC scale is 75 (20<20% impaired, 61-80) Short Term Goal (STG) Improve LE mobility with pt able to kneel and stand at voodoo with greater ease and improved posture. 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 04/14/22: progressing has been singing in choir so not enough room to kneel so hasn't tried . 06/23/22: pt is able to half- kneel w/ UE support to stand, L leg back is harder. STG Duration 04/22/22 (05/16/22: Determined not needed) Jail Goal (LTG) Pt will improve function per ABC score of 81 or greater (1< 20% impaired). (04/22/22: ABC Score - 91.25, 1<20% impaired) LTG Duration 06/04/22 (04/22/22: MET GOAL) One Impairment Lacks appropriate self care HEP Short Term Goal (STG) Pt will be independent with a HEP of strengthening and endurance exercise. STG Duration 03/19/22 Mapping Analyst Goal (LTG) Pt will be independent with a HEP of balance and LE mobility ex's. (03/10/22: HEP: Standing Gastroc/Soleus & supine Ilipsoas stretch) (03/13/22: HEP: Hip stretches of ER-fig4 & leodan BKFO/IR- piriformis/Hip AD, I/S for R TFL stretch, SKTC stretch).. 03/30/22: reviewed stretching, HEP with good form, added band walk for core/ hip abd, functional strengthening/ balance. 04/10/22: added 3 way ankle on L , SLS and reviewed is doing STS at home without UE support . 04/14/22: added resisted shld ext, corner balance: SLS, tandem for self application progressing at home. 06/02/22: added to HEP: heel slides, HS and IT band stretches w/ strap, open book stretch. 06/23/22: added Sit to Stand, Corner balance w/ chair ( Romberg, Tandem, Stride, Single leg stance), Walking program. LTG Duration 04/22/22 (04/14/22: Progressing) Assessment Summary Assessment Pt arrives today with no further appointments scheduled and considering discharge at this time. Pt is encouraged by SUPPORT DBA as per PT to get on waitlist w/ PT for another appointment to evaluate for discharge. Pt will discuss w/ spouse. Treatment focus today on goal assessment and HEP appropriate for possible discharge. Goal 4: Pt's single leg balance on R improves by 5 sec from 6 sec 04/22/22 to 11 sec today . Goal 3: Pt walks from [employer] and usually has to stop on the way home. His legs are always tired when he gets home . Discussed walking program can be for time or distance - ex. pt can find max distance then add 10ft more goal and progress accordingly. Goal 2: Pt has not tried kneeling at vood[employer] for a few weeks, but when he kneels today he demonstrates he can half-kneel w/ R leg back and use upper extremity support to return to standing - L leg back is more challenging. Goal 1: Pt is compliant w/ HEP of balance and LE mobility ex's. Added to HEP: Sit to Stand, Corner balance w/ chair (Romberg, Tandem, Stride, Single leg stance), Walking program - HO given. Physical Therapy Plan Next Visit Focus/Plan Next Visit Plan Assess for discharge or Continue per POC: Focus on setting pt up on home program of LE stretches, endurance and Balance ex's, then DC to HEP. Next: Review use of his home ex equipment for appropriateness. Add HEP: ). Assess sensation in feet and palpate for areas of burning pain with gait HEP of endurance ex using pt's weights at home, and discuss walking program. HEP of Balance training ( Corner: SLS, Tandem, etc). [ End ]
--- NOTE | 2022-08-08 17:27 | PT.OPDS ---
Current Diagnoses Other abnormalities of gait and mobility (06/23/22) Weakness (06/23/22) Visit Care Team Role Provider Type Socrates Tee MD Attending Provider Physician Family Provider Primary Care Provider Referring Provider Specialty: Family Practice Address: [address] [place] [address], [id number] Email: [email or web address] Visit Number Visit Number [id number] Discharge Summary PT-OP-B Current Condition Start: 03/06/22 12:42 Freq: Status: Active Protocol: Document 03/06/22 13:50 LRN (Rec: 03/06/22 18:58 LRN [id number]) Current Condition History of Current Condition Onset Date 01/07/22 Current Complaints Weakness of legs from radiation treatments & Lupron injections History of Current Condition Walks 3 blocks to [place] and can only go 1 block the ankles and hips start to burn and must stop to wait. Pt spouse (Radha) who is a PT thinks it may be from arteries . Has done [facility] rehab 3 yrs ago without pain in the legs with exercise. Since receiving Lupron injections ( to reduce testosterone) and radiation treatments he has had weakness in his legs and fatigue. Developmental History Developmental History Completed radiation treatment to prostate on 01/07/22. 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 Treatment Goals Patient/Caregiver Goals Pt goal is to measure strength and build it up again. Prior Functional Status Baseline Function- ADL's Independent Baseline Function- Mobility Independent Baseline Function- Gait Walked home with hips/ankles heating up and 3-4 stops/3 bks to walk home Current Functional Impairments (Reported) Functional Limitations- ADL's Weakness in ability to get medicine or pepsi bottle caps off. Able to do yardwork only 10-15 ' due to fatigue. Transfers sit<>stand causes heavy breathing sometimes. Neuropathy and electric shocks happens randomly mostly in the evening, several times a week. Functional Limitations- Mobility/Gait L>R Hips/ankles burn walking home with hips/ankles heating up and 1-2 stops/3 bks to walk home. 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 PT-OP-C Subjective Start: 03/06/22 12:42 Freq: Status: Active Protocol: Document 06/23/22 09:50 NBM (Rec: 06/23/22 10:36 NBM [id number]) OP-PT Subjective Patient Comments Patient Comments Pt feels fine today but his new normal is weak and tired, but he has neck stiffness by the end of the day. He rides his e-bike and has been doing his exercises. PT-OP-D Balance Start: 03/06/22 12:42 Freq: Status: Active Protocol: Document 04/22/22 09:11 LRN (Rec: 04/22/22 09:56 LRN [id number]) Balance Tests Joy Balance Test Joy Balance Test Score 49 Joy Impairment Rating 1 to 19% Impaired (Score 45-55 ) Functional Reach Functional Reach Test 15 Functional Reach Impairment Rating 0% Impaired (Score 10) Single Limb Standing Single Limb- Right 6 Single Limb- Left 11 Tandem Tandem Standing R foot behind 60+ secs, L foot behind is 60+ secs Other Other Balance Tests Performed Arms crossesd across lower chest Joy Balance Assessment Evaluation Sitting to Standing Ability Independent w/out Hands Unsupported Stance Safely- 2 minutes Sitting Unsupported, Feet on Floor Safely- 2 minutes Standing to Sitting Ability Safely, Minimal Hand Use Transfer Ability Safely, Minimal Hand Use Unsupported Stance- Eyes Closed Safely, 10 seconds Unsupported Stance- Eyes Open Independent, 1 minute Reaching Forward Standing Confidently, 10 inches Pick- Up Object From Floor Independent/Safe Look Behind Shoulder - Standing Turns Sideways Only Turning 360 Degrees Turns , < 4 secs Unsupported Stance, Alternating Feet on (I)- 8 Steps in 20 secs Stair Unsupported Tandem Stance Assist to Step-15 seconds Unilateral Leg Stance Lifts Leg/Holds 5-10 secs Total Score Joy Total Score (out of 56 points) 49 Joy Impairment Rating 1 to 19% Impaired (Score 45-55 ) PT-OP-E Functional Tests Start: 03/06/22 12:42 Freq: Status: Active Protocol: Document 03/17/22 13:47 LRN (Rec: 03/17/22 17:14 LRN [id number]) Functional Tests Dynamic Gait Index (DGI) Score 23 DGI Impairment Rating 1 to <20% Impaired (Score 20- 23) PT-OP-G Mobility & Gait Start: 03/06/22 12:42 Freq: Status: Active Protocol: Document 03/06/22 13:50 LRN (Rec: 03/06/22 18:58 [facility] [id number]) OP Gait Assessment Gait Gait Assistance Required: Independent Assistive Devices Assistive Device None PT-OP-J Posture/Palpation/Skin Start: 03/06/22 12:42 Freq: Status: Active Protocol: Document 03/06/22 13:50 LRN (Rec: 03/06/22 18:58 [facility] [id number]) Posture Evaluation Position Standing Head/C-Spine Posture Forward Head L-Spine Posture Decreased Lordosis Hip Posture (L) Externally Rotated,(R) Externally Rotated Comments Posture Comments Decreased thoracic curvature, mild anterior tilt of pelvis. PT-OP-K Range of Motion Start: 03/06/22 12:42 Freq: Status: Active Protocol: Document 03/06/22 13:50 LRN (Rec: 03/06/22 18:58 [facility] [id number]) Ankle and Foot Goniometric Range of Motion Ankle and Foot Right Active Testing Position Supine Dorsiflexion with Knee Extended 5 Inversion 5 Comments Ankle AROM is approximated. Left Active Testing Position Supine Dorsiflexion with Knee Extended 7 Inversion 7 Comments Ankle AROM is approximated. PT-OP-M Strength Start: 03/06/22 12:42 Freq: Status: Active Protocol: Document 03/06/22 13:50 LRN (Rec: 03/06/22 18:58 [facility] [id number]) Trunk Strength Trunk Manual Muscle Testing Core Stabilization Pt had difficulty maintaining a stable core during hip MMT. Comments Generally 5/5 Hip Strength Hip Manual Muscle Testing Right Flexion (L2) 4 Good Extension (S1) 3 Fair Adduction 4- Good- External Rotation 5 Normal Internal Rotation 5 Normal Left Flexion (L2) 4+ Good+ Abduction 3 Fair Adduction 4- Good- External Rotation 3+ Fair+ Internal Rotation 5 Normal Knee Strength Knee Manual Muscle Testing Right Flexion (S2) 5 Normal Extension (L3) 5 Normal Left Flexion (S2) 5 Normal Extension (L3) 5 Normal Ankle/Foot Strength Ankle and Foot Manual Muscle Testing Right Dorsiflexion (L4) 4+ Good+ Inversion 5 Normal Eversion (S1) 5 Normal Comments Strength is normal within available limited range. Left Dorsiflexion (L4) 4+ Good+ Inversion 5 Normal Eversion (S1) 5 Normal Comments Strength is normal within available limited range. PT-OP-T Assessment and Plan Start: 03/06/22 12:42 Freq: Status: Active Protocol: Document 08/08/22 17:23 LRN (Rec: 08/08/22 17:26 LRN [id number]) Physical Therapy Assessment Goals Four Impairment Decreased balance placing pt at risk of falling Impairment Dizziness Questionnaire is 26 (20-39% impaired, score 20-39) JOY balance is 45 (1-19% impaired, 45-55) SLS is 7 secs R, 6 secs L. Tandem stance is: R foot behind 28 secs, L foot behind 4 secs. Short Term Goal (STG) Pt will demonstrate improved SLS or tandem stance to improve balance and pt risk of falling. 04/10/22: Progressing:LLE 28s, RLE 32s 04/14/22: balance not as good today up to 6sec eachLE today. (04/22/22: SLS: 6 secs R, 11 sec L; Tandem stance: 60 secs leodan with arms across) 06/23/22: SLS: 11 R, 10 S L STG Duration 04/22/22 (04/22/22: MET GOAL except for SLS on RLE was less) Nursing Home Goal (LTG) Improve balance per JOY score to no less than 50. (04/22/22: JOY score is 49) LTG Duration 06/04/22 (04/22/22: Progressing) Three Impairment Decreased endurance Impairment [place] having to stop at least once due to pain in the hips and lower leg/ feet. (04/22/22: Couple times able to walk home without stopping, but yesterday needed to stop twice). 06/23/22: [place] has to stop on the way home. His legs are always tired when he gets home. Nozzle Worker Goal (LTG) Improve pt endurance with pt able to walk [place] to [place] without having to stop due to limiting pain in the hips, lower legs or feet. 04/07/22: states no change in needs stand stop stand 1 min about every minute for recovery after PT appt last. 04/14/22: pt [place] decline but upgrade off gets his ankles burning quickly, worked in the yard over the weekend and has some inclines, slow moving up hill. (04/22/22: Pt able to walk from [place] to home x2 without having to stop) LTG Duration 06/04/22 (05/16/22: Pt achieved 2 days, but now feels inappropriate) Two Impairment Decreased functional mobility Impairment Pt has difficulty kneeling and getting back up at jain. ABC scale is 75 (20<20% impaired, 61-80) Short Term Goal (STG) Improve LE mobility with pt able to kneel and stand at jain with greater ease and improved posture. 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 04/14/22: progressing has been singing in [employer] so not enough room to kneel so hasn't tried . 06/23/22: pt is able to half- kneel w/ UE support to stand, L leg back is harder. STG Duration 04/22/22 (05/16/22: Determined not needed) Nozzle Worker Goal (LTG) Pt will improve function per ABC score of 81 or greater (1< 20% impaired). (04/22/22: ABC Score - 91.25, 1<20% impaired) LTG Duration 06/04/22 (04/22/22: MET GOAL) One Impairment Lacks appropriate self care HEP Short Term Goal (STG) Pt will be independent with a HEP of strengthening and endurance exercise. STG Duration 03/19/22 (MET GOAL) Nursing Home Goal (LTG) Pt will be independent with a HEP of balance and LE mobility ex's. (03/10/22: HEP: Standing Gastroc/Soleus & supine Ilipsoas stretch) (03/13/22: HEP: Hip stretches of ER-fig4 & leodan BKFO/IR- piriformis/Hip AD, I/S for R TFL stretch, SKTC stretch).. 03/30/22: reviewed stretching, HEP with good form, added band walk for core/ hip abd, functional strengthening/ balance. 04/10/22: added 3 way ankle on L , SLS and reviewed is doing STS at home without UE support . 04/14/22: added resisted shld ext, corner balance: SLS, tandem for self application progressing at home. 06/02/22: added to HEP: heel slides, HS and IT band stretches w/ strap, open book stretch. 06/23/22: added Sit to Stand, Corner balance w/ chair ( Romberg, Tandem, Stride, Single leg stance), Walking program. LTG Duration 04/22/22 (04/14/22: Progressing) Assessment Summary Assessment Per phone conversation pt states he is doing okay and he is doing ex's and stretches. He feels he wasn't progressing except for his balance was little better; therefore he wants to do exercises at home. He understands he will need a new referral if he wants to return to physical therapy. The pt was last seen 06/23/22. Goals wer partially met. The pt is being discharged from therapy with pt agreeable. Physical Therapy Plan Discharge Physical Therapy Discharge Reasons No Longer Attending PT Discharge Comments Thank you for your referral.
== END 2022-08-11 11:31 | disposition home or self-care (01) ==
LOC: PHYS 09:45
PROVIDERS: Family Provider Family Medicine; PCP Family Medicine; Referring Provider Family Medicine; Visit Provider Family Medicine
DX: R53.1 Weakness (principal); R26.89 Other abnormalities of gait and mobility
CPT/HCPCS: 97110; 97112; 97140; 97162; 97535

== ENCOUNTER 2023-09-02 02:15 | Emergency (ER) | payer OTHER, SELFPAY ==
[2021-07-25 09:01] VITALS: BMI 25.7
[2023-09-02] VITALS (11 sets, daily range): BP systolic 161–208; BP diastolic 75–93; PULSE 64–71; RESP 18; TEMP 36.6–37.1; O2SAT 95–98; BMI 26.2
--- NOTE | 2023-09-02 02:28 | ED.MALEGU ---
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 He states that he thought he was just sweaty but woke up and his pajamas were covered in blood. He has had significant decreased urine output and difficulty with urination for the past couple of hours. Called [facility] hotline recommended he come to the ED. He also reports he is COVID positive. Family member gave him a bunch hugs couple days ago he waited a day and a half before testing any tested positive this morning. He has low-grade symptoms. Not hypoxic or having any chest pain or shortness of breath. Related Data Home Medications Medication Instructions Recorded Confirmed aspirin 81 mg tablet,delayed 81 mg PO QPM ##0 10/09/17 08/03/23 release nitroglycerin 0.4 mg sublingual 0.4 mg sublingual PRN PRN Chest 10/09/17 08/03/23 tablet (Nitrostat) Pain ##0 ResMed AirSense 10 CPAP #1 ea 01/27/19 08/03/23 acetaminophen 500 mg tablet 500 mg PO Q6H PRN 02/11/21 08/03/23 (Tylenol Extra Strength) Previous Rx's Medication Instructions Recorded DISABLED PARKING PERMIT #1 ea 02/15/19 atorvastatin 40 mg tablet (Lipitor) 40 mg PO BEDTIME #90 tabs 12/17/20 Cmp Naltrexone 4.5 mg PO DAILY #90 caplets 08/21/22 clopidogrel 75 mg tablet See Rx Instructions .Route 12/22/22 .COMPLEX #90 tabs lisinopril 5 mg tablet See Rx Instructions .Route 02/17/23 .COMPLEX #90 tabs naltrexone 4.5 mg capsule 4.5 mg PO .once daily #90 caps 06/17/23 metformin 500 mg tablet 500 mg PO DAILY #90 tabs 08/03/23 Allergies Allergy/AdvReac Type Severity Reaction Status Date / Time No Known Allergies Allergy Uncoded 08/03/23 14:46 Patient History Medical History (Updated 09/02/23 @ 04:48 by Fartun Bailey DO) 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 Hematuria Family history of prostate cancer in father 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 Coronary artery disease with history of coronary revascularization PVD (peripheral vascular disease) Neurological disease Skin cancer Arthritis Bleeding from the genitourinary system Spinal injury Allergies Vision disorder Hearing deficit Sleep apnea Seasonal allergies Peripheral neuropathy (~2007) Shoulder pain Fractures Foot pain Ankle pain Mumps Measles Herpes Chicken pox Factor V Leiden Hearing loss Glaucoma Hemorrhoid Hypertension (~1949) Hyperlipidemia Surgical History H/O vasectomy H/O hernia repair History of coronary artery stent placement History of appendectomy Anesthesia History of eye surgery (~2007) Status post appendectomy (~1994) History of tonsillectomy (~1962) Status post knee surgery (~1967) Family History Father Factor V Leiden deficiency Cancer Hearing impaired Grandfather Hypertension Stroke Grandmother Heart attack Diabetes mellitus Mother Diabetes mellitus Hypertension High cholesterol Cancer Grandmother Diabetes mellitus Grandfather No problems noted. Social History marital status: number of children: 3 household members: spouse Smoking Status: Never smoker alcohol intake: current substance use type: does not use caffeine: Yes Smoking Status: Never smoker alcohol intake frequency: 0-2 drinks per day Substance Use Type: does not use Exam Initial Vital Signs Initial Vital Signs: Vital Signs Blood Pressure 208/93 H 09/02/23 02:18 GENERAL: Alert well-appearing 83-year-old male and in no acute distress. HEENT: Head atraumatic,EOMI, pupils reactive, face symmetric, moist mucous membranes CARDIOVASCULAR: Regular rate and rhythm without murmurs, rubs or gallops. RESPIRATORY: Breath sounds equal bilaterally, no wheezes rales or rhonchi. ABDOMEN: Soft, nontender. Normoactive bowel sounds all 4 quadrants. No guarding or rebound. : No CVA tenderness EXTREMITIES: Normal range of motion, no clubbing or edema. Neurovascularly intact NEUROLOGICAL: Alert and oriented x4. SKIN: Warm, dry, no laceration, no petechiae, no rashes or lesions. Course Orders Ordered: ED Orders 09/02/23 04:01 UA Complete [Urinalysis and Microscopic] Stat Discontinued Medications Lidocaine HCl (Lidocaine 2% (Glydo) 6 Ml Gel) 6 ml TOP NOW ONE Stop: 09/02/23 02:19 Last Admin: 09/02/23 03:28 Dose: 6 ml Documented By: AP Vital Signs Vital signs: Vital Signs - 8 hr 09/02/23 02:18 09/02/23 02:19 09/02/23 02:26 Temperature Pulse Rate 66 71 Respiratory Rate Blood Pressure 208/93 H Pulse Oximetry 98 98 Oxygen Delivery Method 09/02/23 02:28 09/02/23 03:17 09/02/23 03:23 Temperature 98.7 F Pulse Rate 66 67 Respiratory Rate 18 Blood Pressure 208/93 H 196/92 H Pulse Oximetry 96 95 Oxygen Delivery Method Room Air 09/02/23 03:30 09/02/23 04:00 09/02/23 04:00 Temperature Pulse Rate 65 66 Respiratory Rate Blood Pressure 184/80 H Pulse Oximetry 97 96 Oxygen Delivery Method 09/02/23 04:30 09/02/23 04:30 09/02/23 05:00 Temperature Pulse Rate 66 65 Respiratory Rate Blood Pressure 167/79 H Pulse Oximetry 97 97 Oxygen Delivery Method 09/02/23 05:00 09/02/23 05:53 Temperature 97.8 F Pulse Rate 64 Respiratory Rate 18 18 Blood Pressure 173/80 H 161/75 H Pulse Oximetry 97 Oxygen Delivery Method Room Air MDM - Male Genitourinary Lab Data Labs: Lab Results 09/02/23 Range/Units 04:01 Urine Color Red Urine Appearance Cloudy Urine pH 7.0 (4.5-8.0) Ur Specific [place] 1.020 (1.000-1.035) Urine Protein 1+ H (Negative) Urine Glucose (UA) Negative (Negative) g/dL Urine Ketones Trace H (NEGATIVE) Urine Occult Blood 3+ H (Negative) Urine Nitrate Negative (Negative) Urine Bilirubin Negative (NEGATIVE) Urine Urobilinogen 0.2 (0.2) E.U./dL Ur Leukocyte Esterase Negative (NEGATIVE) Urine RBC >100/hpf H (0-5/HPF) Urine WBC 0-1/hpf (0-5/HPF) Ur Squamous Epith Cells 0-1 /hpf (0-5/HPF) Urine Bacteria Occasional (0-1) (None) Ur Culture Indicated? Cult not indicated MDM Narrative Medical decision making narrative: Bladder scan showed patient had 500 cc, he attempted to use the restroom but was unable to do so. Concern for gross hematuria 3 way catheter was placed with some difficulty but both nursing patient did well. However not gross blood it is dark urinalysis does not show any evidence of UTI. He had a little bit of irrigation but really does not need it. Vitals are stable. This time does not meet any sort of criteria to have blood work for evaluation of his COVID status he is not hypoxic. He overall appears well for having COVID. Vitals stable. Discharge Plan Departure Patient Disposition: Home Clinical Impression: Acute urinary retention, Hematuria, COVID-19 Instructions: How to Care for Your Jarrett Catheter -- Male, DI for Urinary Retention in Men Activity Restrictions/Additional Instructions: *You have been diagnosed with urinary retention, hematuria *What to do: At this time keep Jarrett catheter in follow-up with your urologist. You also have COVID expect to feel poorly stay hydrated *Continue to take medications as directed *Follow up with your primary care provider in 2-3 days or call [phone] Call urology and oncology tomorrow to schedule follow-up appointment *Return to ER if you should have gross blood in catheter catheter not draining oxygen level less than 90% not tolerating fluids or any new, worsening or concerning symptoms Prescriptions: No Action metformin 500 mg tablet 500 mg PO DAILY Qty: 90 0RF aspirin 81 MG tablet,delayed release (DR/EC) 81 mg PO QPM Qty: 0 nitroglycerin [Nitrostat] 0.4 MG tablet, sublingual 0.4 mg Sublingual PRN PRN (Reason: Chest Pain) Qty: 0 atorvastatin [Lipitor] 40 mg tablet 40 mg PO BEDTIME Qty: 90 3RF Cmp Naltrexone 4.5 mg capsule 4.5 mg PO DAILY Qty: 90 1RF clopidogrel 75 mg tablet See Rx Instructions .ROUTE .COMPLEX Qty: 90 2RF Dose Instruction: Take 1 tablet (75 mg) by mouth every evening. Rx Instructions: Take 1 tablet (75 mg) by mouth every evening. lisinopril 5 mg tablet See Rx Instructions .ROUTE .COMPLEX Qty: 90 3RF Dose Instruction: Take 1 tablet (5 mg) by mouth every evening Rx Instructions: Take 1 tablet (5 mg) by mouth every evening naltrexone 4.5 mg capsule 4.5 mg PO .once daily Qty: 90 0RF (DME) DISABLED PARKING PERMIT 0 .ROUTE .MEDSUPPLY Qty: 1 0RF Rx Instructions: I find this patient to be medically disabled and qualified for disabled parking as indicated, and signed, on the accompanying Disabled Parking Application for Individuals. (DME) ResMed AirSense 10 CPAP Qty: 1 Dose Instruction: As directed Patient Comments: Pressure: 6-12 cmH2O DME: [facility] Rx Instructions: As directed acetaminophen [Tylenol Extra Strength] 500 mg tablet 500 mg PO Q6H PRN Referrals: Socrates Tee MD [Primary Care Provider] - Stand Alone Forms: Patient Portal/API
--- NOTE | 2023-09-02 02:35 | PC.NURSE ---
+ hematuria with lower abd pain, and penis pain unable to empty bladder
[2023-09-02] MEDS: LIDOCAINE 2% (GLYDO) 6 ML GEL TOP (03:28)
--- NOTE | 2023-09-02 03:55 | PC.NURSE ---
When the [address] way 18 fr. san cath was inserted with sterile technique,550 ml dark tea colored urine returned,it was irrigated with approx 1000 ml sterile water and returned clear drainage.
[2023-09-02 04:15] LABS: Appearance Urine UA CLOUDY; Bilirubin Urine UA NEGATIVE (NEGATIVE); Color Urine UA RED; Glucose Urine UA NEGATIVE (Negative); Ketones Urine UA TRACE (NEGATIVE); Leukocyte Esterase Urine UA NEGATIVE (NEGATIVE); Nitrite Urine UA NEGATIVE (Negative); Occult Blood Urine UA 3+ (Negative); Protein Urine UA 1+ (Negative); Urobilinogen Urine UA 0.2 E.U./dL (0.2)
[2023-09-02 04:18] LABS: Bacteria Urine Occasional (0-1); Culture Indicated Urine Cult Not Indicated; RBC Urine >100/HPF (0-5/HPF); Squamous Epithelial Cell Urine 0-1 /HPF (0-5/HPF); WBC Urine 0-1/HPF (0-5/HPF)
== END 2023-09-02 05:56 | disposition home or self-care (01) ==
PROVIDERS: Emergency Provider Emergency Medicine; Family Provider Family Medicine; PCP Family Medicine
DX: R31.9 Hematuria, unspecified (principal); R33.8 Other retention of urine; U07.1 COVID-19
CPT/HCPCS: 51798; 81001; 99283